=== PATIENT | male | born 1990 | race Caucasian/White ===

== ENCOUNTER 2019-03-09 22:41 | Inpatient (IN) | payer OTHER, MEDICAID, SELFPAY ==
--- NOTE | 2019-03-09 | DI.CT.S_ITS ---
PROCEDURE: CT PEL WO CON INDICATIONS: FEMUR/HIP PAIN, SKATEBOARD INJURY TODAY TECHNIQUE: Noncontrast 3 mm axial sections acquired through the bony pelvis, with coronal and sagittal reformatting. COMPARISON: None. FINDINGS: Image quality: Excellent. Bones: There is a comminuted intertrochanteric fracture of the proximal right femur with fracture line extending obliquely to the proximal third right femoral diaphysis. The right femoral acetabular joint is maintained. Remainder of the visualized osseous structures appear intact. Pelvic ring is intact. No pubic symphysis or sacral iliac diastases. Soft tissues: There is soft tissue swelling of the musculature surrounding the fracture. No evidence for abnormal fluid collection. No substantial joint effusion. Limited evaluation of the pelvic structures appear unremarkable. IMPRESSION: 1. Comminuted intertrochanteric fracture of the proximal right femur with extension of the fracture line to the proximal third femoral diaphysis. 2. The pelvic ring appears intact. Findings are concordant with preliminary radiology report. Dictated by: Tobin Kirk M.D. on 03/10/2019 at 8:47 Approved by: Tobin Kirk M.D. on 03/10/2019 at 8:54
[2019-03-09 22:45] VITALS: BP 142/74; PULSE 71; RESP 18; TEMP 37.1; O2SAT 99; BMI 25.1
--- NOTE | 2019-03-09 22:48 | DI.RAD.S_ITS ---
PROCEDURE: XR FEMUR RT MIN 2V INDICATIONS: trauma, swelling, obvious deformity TECHNIQUE: 2 views of the femur were acquired. COMPARISON: [facility], CR, PELVIS W UNILATERAL HIP LEFT, 04/09/2009, 11:41. FINDINGS: Bones: There is a comminuted intertrochanteric fracture in proximal femur. No suspicious bony lesions. Soft tissues: No suspicious soft tissue calcifications or masses. IMPRESSION: Comminuted intertrochanteric fracture. Dictated by: Azar Morales M.D. on 03/10/2019 at 8:35 Approved by: Azar Morales M.D. on 03/10/2019 at 8:36
--- NOTE | 2019-03-09 23:15 | PC.NURSE ---
Pt refusing IV at this time
--- NOTE | 2019-03-09 23:23 | ED_ITS ---
HPI - Fall General Chief Complaint: Trauma Stated Complaint: states right femure/upper leg pain from fall Time Seen by Provider: 03/09/19 22:48 Source: patient and family Mode of arrival: wheelchair Limitations: no limitations History of Present Illness HPI Narrative: 28-year-old male nonsmoker with frequent marijuana use presents with a chief complaint significant right hip, thigh pain and swelling since a skateboarding accident just prior to his arrival. He states that he attempted to jump that was above his skill level and landed firmly on his right thigh. He denies any head neck or back pain. He denies any numbness, tingling or weakness. He has significant swelling in his right thigh and pain that is worse with motion and improves with rest MD complaint: fall Onset (ago): minute(s) Fall from: standing Fall witnessed: no Place fall occurred: street Loss of consciousness: none Prolonged down time: no Symptoms prior to fall: none Context: tripped/slipped Location of injury - extremities: Right: thigh Severity: severe Quality: aching Related Data Allergies Allergy/AdvReac Type Severity Reaction Status Date / Time No Known Drug Allergies Allergy Verified 03/09/19 23:42 Review of Systems Constitutional Denies chills, Denies fever(s), Denies lethargy and Denies weakness Eyes Denies change in vision, Denies eye discharge, Denies irritation and Denies loss of vision ENT Ears, Nose, Mouth, and Throat: Denies change in voice, Denies neck pain and Denies sore throat Cardiovascular Denies chest pain, Denies irregular heart rhythm, Denies lightheadedness, Denies palpitations, Denies dyspnea, Denies dyspnea on exertion and Denies orthopnea Respiratory Denies cough, Denies dyspnea, Denies dyspnea on exertion and Denies wheezing Gastrointestinal Gastrointestinal: Denies abdominal pain, Denies change in bowel habits, Denies diarrhea, Denies nausea and Denies vomiting Genitourinary Denies hematuria, Denies flank pain, Denies urinary incontinence and Denies urinary urgency Musculoskeletal Reports joint swelling, Reports limited range of motion and Denies neck pain Integumentary/Breasts Denies pruritus, Denies erythema, Denies rash and Denies wounds Neurologic Denies confusion, Denies loss of vision and Denies weakness Psychiatric Denies anxiety, Denies confusion, Denies depression, Denies homicidal ideation and Denies suicidal ideation Endocrine Denies palpitations Hematologic/Lymphatic Denies easy bruising Allergic/Immunologic Denies wheezing Exam Narrative Exam Narrative: GENERAL: 28-year-old male, GCS 15, obviously uncomfortable and favoring his right hip and thigh HEAD: Atraumatic. Normocephalic. No temporal or scalp tenderness. EYES: Pupils equal round and reactive. Extraocular motions intact. No scleral icterus. No injection or drainage. ENT: Nose without bleeding, purulent drainage or septal hematoma. Throat without erythema, tonsillar hypertrophy or exudate. Uvula midline. Airway patent. NECK: Trachea midline. No JVD or lymphadenopathy. Supple, nontender, no meningeal signs. CARDIOVASCULAR: Regular rate and rhythm without murmurs, gallops, or rubs. RESPIRATORY: Clear to auscultation. Breath sounds equal bilaterally. No wheezes, rales, or rhonchi. GASTROINTESTINAL: Abdomen soft, non-tender, nondistended. No hepato- splenomegaly, or palpable masses. No guarding. EXTREMITIES: Significant swelling of the right thigh without shortening or rotation of his lower extremity. Full sensation of the toes with cap refill less than 2 seconds and intact dorsalis pedis. Limited range of motion secondary to pain. Closed, isolated and neurovascularly intact BACK: Nontender without deformity or crepitance. No flank tenderness. NEURO: AOx3. SKIN: No rash or erythema. Initial Vital Signs Initial Vital Signs: Vital Signs Temperature 98.7 F 03/09/19 22:45 Pulse Rate 71 03/09/19 22:45 Respiratory Rate 18 03/09/19 22:45 Blood Pressure 142/74 H 03/09/19 22:45 Pulse Oximetry 99 03/09/19 22:45 [facility] Social History (Updated 03/09/19 @ 23:36 by Billy Chavez DO) marital status: unmarried,single lives independently: Yes caregiver/support person: No housing: house Course Orders Ordered: ED Orders 03/09/19 22:48 XR femur RT min 2V Stat Basic Metabolic Panel Stat Complete Blood Count AUTO DIFF Stat Type and Screen Stat Consultations Consultation #1: Called to on-call orthopedist whom suggests admitting the patient here, does not need to be NPO immediately as surgery is likely going to happen tomorrow afternoon or evening Vital Signs - 8 hr 03/09/19 22:45 03/09/19 23:41 Temperature 98.7 F Pulse Rate 71 64 Respiratory Rate 18 Blood Pressure 142/74 H Blood Pressure [Right Arm] 110/52 L Pulse Oximetry 99 100 MDM - Fall Imaging Data Right Hip Xray: My impression: Comminuted R hip with involvement of neck, greater/lesser trochanter Pelvis CT: Radiologist's impression: Comminuted intertrochanteric fracture of the right hip with extension into the proximal mid femoral diaphysis Discharge Plan Departure Patient Disposition: Admitted As Inpatient Clinical Impression: Closed right femoral fracture Qualifiers: Encounter type: initial encounter Femur location: trochanter, unspecified Qualified Code(s): S72.101A - Unspecified trochanteric fracture of right femur, initial encounter for closed fracture Admit Date/Time: 03/09/19 23:57 Admit Provider: Robert Arrington
[2019-03-09 23:41] VITALS: BP 110/52; PULSE 64; O2SAT 100
[2019-03-10] VITALS (18 sets, daily range): BP systolic 119–146; BP diastolic 56–87; PULSE 59–91; RESP 14–92; TEMP 36.4–37.7; O2SAT 95–100; BMI 25.1
--- NOTE | 2019-03-10 | DI.RAD.S_ITS ---
PROCEDURE: XR HIP W PEL IF DONE RT 4V COMPARISON: None. INDICATIONS: RIGHT HIP FX REPAIR FINDINGS: 6 intraoperative fluoroscopic spot images of the right femur demonstrate multiple views of the left femoral ernie and femoral neck screw traversing an intertrochanteric fracture. Hardware position appears appropriate. No unexpected fractures visible. IMPRESSION: Intraoperative fluoroscopy for left hip fracture repair. Dictated by: Mignon Underwood M.D. on 03/10/2019 at 20:55 Approved by: Mignon Underwood M.D. on 03/10/2019 at 20:56
[2019-03-10 00:37] LABS: Add Manual Diff / Slide Review NO; Basophils Absolute Auto 100 /uL (0-100); Basophils Percent Auto 0.6 % (0-2); Eosinophils Absolute Auto 0 /uL (0-450); Hematocrit 35.5 % (41-53); Hemoglobin 12.5 g/dL (13.5-17.5); Lymphocytes Absolute Auto 1000 /uL (1100-4500); Lymphocytes Percent Auto 5.5 % (25-40); Mean Corpuscular HGB Conc 35.1 % (30-36); Mean Corpuscular Hemoglobin 31.1 PG (26-34); Mean Corpuscular Volume 88.6 fL (80-100); Monocytes Absolute Auto 1100 /uL (0-900); Neutrophils Absolute Auto 16100 /uL (1500-7000); Neutrophils Percent Auto 87.9 % (50-75); Platelet Count 241 X10^3/uL (150-400); Red Blood Cell Count 4.01 X10^6/uL (4.5-5.9); Red Cell Distribution Width 12.7 % (11.6-14.8); White Blood Cell Count 18.4 X10^3/uL (4.5-11.0)
[2019-03-10 00:57] LABS: BUN Creatinine Ratio 16.7 (6-22); Blood Urea Nitrogen 15 mg/dL (9-20); Calcium 8.9 mg/dL (8.4-10.2); Carbon Dioxide 27 mmol/L (22-32); Chloride 99 mmol/L (98-107); Estimated Glomerular Filt Rate > 60.0 mL/min (>60); Glucose 150 mg/dL (70-100); HEMOLYSIS < 15 (0-50); Potassium 3.7 mmol/L (3.4-5.1); Sodium 134 mmol/L (137-145)
[2019-03-10] MEDS: HYDROMORPHONE 0.5 MG INJ IV ×5 (01:55→15:32)
[2019-03-10] MEDS: SODIUM CHLORIDE 0.9% 1,000 ML 75 ML IV ×2 (01:55→14:58)
--- NOTE | 2019-03-10 04:24 | PC.NURSE ---
Admission note: Pt arrived via stretcher accompanied by ED WASHTUB WORKER and student nurse, transferred to AC bed via stretcher, pt is on bedrest for right hip fx. Assessment notable only for a larger right thigh than left with no accompanied bruising, strong pedal pulse and intact sensation. Pt is AxOx4 but has a tendency to ramble on when asked questions, and reports that he currently lives at home with his pervy parents and self reporting to be suffering from situational depression. 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 Assured pt that he can be safely treated for pain but pt assures this RN that he is okay. Pt is a fall risk d/t recent fall and current hip fx.
--- NOTE | 2019-03-10 08:17 | P.HP_ITS ---
History of Present Illness Date Patient Seen: 03/10/19 Time Patient Seen: 08:13 Chief complaint: states right femure/upper leg pain from fall Narrative: 28-year-old gentleman who fell while skateboarding landing on his right leg resulting in a proximal femur fracture with extension into the shaft. Patient denies any other injuries from the fall. Patient was attempting a jump and landed directly on the lateral aspect of his right leg. Was unable to bear weight. Patient denies hitting his head. Patient denies any loss of consciousness. Patient History Social History (Updated 03/09/19 @ 23:36 by Billy Chavez DO) marital status: unmarried,single household members: family lives independently: Yes caregiver/support person: No housing: house Smoking Status: Current every day smoker alcohol intake: current Family & Social History Social History: household members family Prior Living Arrangements House lives independently Yes caregiver/support person No Safety & Behavioral: Feels Safe in Current No Environment Been Physically Hurt or No Threatened By a Person Suicidal Ideation Description None Suicide Plan Description No Plan Tobacco & Substance use: Tobacco type cannabis/marijuana Smoking Status Current every day smoker alcohol intake current alcohol intake frequency 0-2 drinks per day Substance Use Type marijuana Meds Home Medications Medication Instructions Recorded Confirmed Type No Known Home Medications 03/10/19 03/10/19 History Allergies Allergy/AdvReac Type Severity Reaction Status Date / Time No Known Drug Allergies Allergy Verified 03/09/19 23:42 Review of Systems Review of Systems All systems reviewed & are unremarkable except as noted in HPI and below Exam Vital Signs (past 8 hours): - 03/10/19 01:05 03/10/19 01:15 03/10/19 05:00 Temperature 98.2 F 98.1 F Pulse Rate 70 64 80 Respiratory Rate 18 16 16 Blood Pressure 129/68 123/61 136/68 Pulse Oximetry 98 99 99 Oxygen Delivery Method Room Air Oxygen Flow Rate 0 Narrative Exam Narrative: On physical exam, patient is alert and oriented x3. Resting comfortably in no apparent distress. No injuries to the upper extremities. Patient has full range of motion of his bilateral upper extremities without any pain or instability. Compartments are soft. Nontender to palpation. Normal range of motion of the cervical spine without any pain or instability. Left lower extremity also free of any abnormalities. Nontender to palpation throughout. No pain with range of motion of the hip knee or ankle of the left leg. Patient has swelling to the right thigh. The compartments are soft. Patient has positive dorsiflexion plantar flexion of his right toes and ankle. Palpable pedal pulses. Nontender to palpation throughout the foot ankle and lower leg. No pain or swelling to the right knee. Skin is intact with no sign of any open wounds or abrasions. Const General: cooperative and healthy appearing Nutritional Appearance: well nourished Orientation: alert, awake and oriented x3 Objective Labs Result Diagrams: 03/10/19 00:30 03/10/19 00:30 Labs: Laboratory Results - last 24 hr 03/10/19 03/10/19 03/10/19 00:30 00:30 00:30 WBC 18.4 H RBC 4.01 L Hgb 12.5 L Hct 35.5 L MCV 88.6 MCH 31.1 MCHC 35.1 RDW 12.7 Plt Count 241 Neut % (Auto) 87.9 H Lymph % (Auto) 5.5 L [place] % (Auto) 6.0 Eos % (Auto) 0.0 L Baso % (Auto) 0.6 Neut # (Auto) 28232 H Lymph # (Auto) 1000 L [place] # (Auto) 1100 H Eos # (Auto) 0 Baso # (Auto) 100 Sodium 134 L Potassium 3.7 Chloride 99 Carbon Dioxide 27 BUN 15 Creatinine 0.90 Estimated GFR > 60.0 BUN/Creatinine Ratio 16.7 Glucose 150 H Calcium 8.9 Blood Type A Positive Antibody Screen Negative Assessment & Plan Assessment & Plan narrative: 28-year-old gentleman with a proximal femur fractur e with spiral extension down into the shaft. Due to his injury this will require surgical fixation. I went over the surgical plan with the patient today. Plan on doing a intramedullary fixation of his femur. Went over the risks and limitations associated with the procedure. All of his questions and concerns were answered to his full satisfaction. Time Spent With Patient Time with patient: 15-24 minutes Quality VTE Deep Vein Thrombosis/Pulmonary Embolism Present on Admission: No
--- NOTE | 2019-03-10 10:19 | PC.NURSE ---
PATIENT WAS ABLE TO VOID W/ URINAL THIS AM. PREFERS URINAL OVER THE IDEA OF A RODRIGUES. RIGHT HIP SIGNIFICANTLY SWOLLEN AND FIRM. CMS INTACT WITH MILD SENSATION OF NUMBNESS, THOUGH NOT TO TOES, ABLE TO MOVE ANKLE AND FOOT AND TOES. FOOT COOL W/ PALPABLE PEDAL PULSES. IVP PAIN MEDICATION PRN. BEDREST. NPO SINCE 0900 PER ORDERS.
--- NOTE | 2019-03-10 10:26 | DIET.PN ---
28y M decreased appetite Height: 180.3cm Wt: 81.6kg BMI: 25.1 Assessment: Pt reports decreased appetite r/t situational depression following ending of 5 year relationship. Pt is active and eats balanced diet including scrambled eggs c veg, crock pot meals, apples, bananas, spinach, water Now eats oatmeal for breakfast, apples, bananas, beef jerky and water. Says his appetite will come back and will resume healthy diet as his heart heals and time moves on. Pt declined talking about prior weight, reported he's fine, just a little depressed. [facility] once allowed to eat, educated on protein and calcium for bone and tissue healing. Monitoring/Evaluation: Further consult c RD not indicated at this time.
--- NOTE | 2019-03-10 11:37 | PC.NURSE ---
Addendum entered by Micaela Yun R.N. 03/10/19 14:37: Left msg with nurse at the [facility] for Dr Arrington. Patient's father, Robert Tamez, who is a physical therapist in [facility], requests to speak with Dr. Arrington prior to surgery. Phone numbers provided for aDshawn's office [phone] and his cell phone [phone] Addendum entered by Micaela Yun R.N. 03/10/19 11:42: Family requests that we chart any unusual behaviours. Original Note: Patient's mother Morena came in to see him. He didn't want her in the room. He was unable to clearly state why. Morena asked this nurse when surgery was planned. This nurse asked patient if it is okay to give her information about his care. He stated, you can tell her whatever she wants, as long as she doesn't come in here. Morena states patient has undiagnosed mental health issues. She suspects bipolar. States he self medicates w/ marijuana which causes delusions and paranoia. States he is currently homeless and living in his truck. She has many concerns. ANDI Alcala notified of same. She will speak with Morena.
--- NOTE | 2019-03-10 15:43 | PC.NURSE ---
Addendum entered by Alem Acevedo R.N. 03/10/19 22:29: Pt's parents aware pt back in room 205 and stop in to see patient. Pt sleeping and does not acknowledge their presence. Parents leave for the evening. Pt resting quietly in bed with eyes closed; no signs of distress or discomfort. Addendum entered by Alem Acevedo R.N. 03/10/19 21:54: Pt to room 205 from PACU awake and alert. R.T. in to see patient. Continuous pulse oximeter in place room air 98%. Pt admits to right LE pain 7/10 with movement. Has ice to right hip. Surgical dressing is dry and intact. Palpable pedal pulses BL. Able to wiggle toes to feet BL. BL calf scd's in place. Bowel tones are present and pt denies nausea. Given applesauce with po meds. IV fluids initiated. Cooperative with care. Call light available within pt's reach. Addendum entered by Alem Acevedo R.N. 03/10/19 17:56: Pt's mother arrives to check on pt. Pt remains resting quietly in bed with eyes closed. Pt's mother reports to this singer songwriter pt's father has spoken to surgeon. Mother states feels comfortable pursuing surgery at this facility. O.R. RN's arrive to take pt to surgery. Pt was informed. Pt requests staff cut off underwear versus pt required to move RLE to remove this undergarment. Pt states does not want to keep so these were cut and disposed of with pt's consent and knowledge. Mother follows O.R. crew to waiting area so can meet with Dr. Arrington at the end of the case. O.R. crew was informed of pt's mental health status as per earlier conversation with md do resident urgent care. Pt's mother was present for this conversation and validates information shared. Original Note: Pt calmly, quietly resting in bed. Requests pain meds @ shift change for right hip pain 7-8/10. Administered dilaudid as ordered and per emar. Pt requests sips water and this singer songwriter provided rationale why nothing to eat or drink prior to surgery. Offered oral swab, which pt refuses. Informed pt can have foods and fluids following surgery. Currently denies nausea. Admits to full sensation to BL LE's. Edema to right thigh. Ice to region. Instructed pt to remove ice if skin becomes cold/uncomfortable. Palpable pedal pulses x 2. Door open per pt's request.
--- NOTE | 2019-03-10 16:17 | CM.SWNOTE ---
Addendum entered by ANDI Lees 03/11/19 10:16: Documents received Wednesday03.10.19 from pt's mom Morena: *Typed letter of concern dated 02.19.19 from pt's older sister Rory Braun RN at [facility] in [place], reviewing reasons for concern for pt's safety and the safety of those around him, RADHA requested, cell # [phone]. *Typed letter of concern dated 02.24.19 from friend Bradley Kennedy, cell # [phone]. *Typed letter of concern from ex-girlfriend Viktoriya Lopez dated 02.21.19 reviewing concerns about pt's behavior in the past and indicators of active psychosis and s/sx of significant depression, anxiety, and suspected Bipolar disorder. Also included; Typed transcript from a former conversation w/pt illustrating non linear thought and speech, and tangential thought process. *Also received a VM and a signed and dated Affidavit from pt's current/former counselor (pt non-compliant in f/u) Marie Wolf MA [facility] dated 03.10.19 reviewing her suspicion of pt's active psychosis and a suspected diagnosis of schizo affective disorder, Bipolar type . All conclude in their documents that pt requires inpt psychiatric care and medication management in order for pt to have a functional, stable and healthy existence. JW Original Note: Social Work Note: This PHOTOGRAPHY INSTRUCTOR was called by MARIANA Hinojosa to meet w/pt's mom Morena to review her concerns about pt's lack of stability and undiagnosed MH issues. Pt has given team permission to speak w/his mother but has told RN as long as she stays out of my room. Had lengthy conversation w/Morena. More detailed note to follow. Summary of her concerns shared are included below: -H/o depression and anxiety now w/ at least one month h/o severe behavioral disturbance to include paranoia ie that his family is out to get him, people are watching and listening to him through the TV and other electronic devices, accusing others of committing sexual acts, and distrust/verbal abuse towards his parents -Paranoia and delusions making it so pt can not function in daily life to include poor judgment and lack of safety awareness ie choosing to live in his truck outside his parent's home,not being able to keep employment, smoking large amounts of marijuana daily, not attending counseling sessions or being very late, often peeing outdoors to avoid using indoor BR w/fear of seeing someone, making verbal threats to parents about punching them in the face Alerted RN Micaela and oncoming RN Alem re: report above. This PHOTOGRAPHY INSTRUCTOR unable to interview/assess pt today. He is scheduled for hip surgery this evening. Will resume further documentation and assessment of next steps in safe DC planning Wednesday, likely POD#1 from hip surgery after skate boarding accident and subsequent hip fx. ANDI Lees
[2019-03-10] MEDS: LACTATED RINGERS 1,000 ML 42 ML IV (18:00)
[2019-03-10] MEDS: CEFAZOLIN 2 GM/100 ML FROZ.PIGGY IV (18:15)
[2019-03-10] MEDS: BUPIVACAINE 0.5% W/ EPI (PF) VIAL 30 ML INJ (18:35)
--- NOTE | 2019-03-10 18:56 | SUR.OPER ---
Head on pillow. Supine on fracture table with operative leg secured in traction. Other leg secured in TRACTION, UNLOCKED. RIGHT Arm across chest, secured with sheet. LEFT ARM SECURED ON PADDED ARMBOARD.
[2019-03-10] MEDS: HYDROMORPHONE 2 MG INJ 0.5 MG IV ×2 (20:49→21:05)
--- NOTE | 2019-03-10 21:10 | P.OP_ITS ---
Operative Date/Time/Diagnoses Date of procedure: 03/10/19 Time of procedure: 18:30 Pre-op diagnosis: Right intertrochanteric femur fracture with extension into the shaft. Post-op diagnosis: same Procedure & Clinicians Procedure: Intramedullary fixation of right femur fracture Compartment release of a right thigh Same procedure as scheduled: No Indications: Right proximal femur fracture with extension into the shaft. Surgeon: Robert Arrington Click Yes if Unassisted: Yes Anesthesia Type: General Operative Notes Findings: Intratrochanteric femur fracture with a spiral extension into the shaft. No sign of extension into the neck or head. Concern that patient might develop compartment syndrome over time so a compartment release was performed. Closure Type: primary Specimen(s): none sent Prosthetic devices, grafts, tissues, transplants, or devices: [place] femoral nail Applied: implant(s) Estimated Blood Loss (mL): 100 Blood products transfused: none Procedure in detail: On date of service, patient was met in the holding area where his operative site was signed and witnessed by the OR staff. The surgery was once again discussed with the patient as well as family. All of the patient's questions and concerns were answered to his full satisfaction. Patient was taken to the operating theater. 2 g of Ancef were given preoperatively. Time-out was performed verifying patient's name procedure and operative site. General anesthetic was administered and then patient was transferred to the fracture table. Great care was taken to ensure that all bony prominences were appropriately padded. Peroneal post was placed. Both legs was placed into traction boots. The left leg was lowered while the right leg stayed in a neutral plane. Gentle traction was applied as well as internal rotation and adduction. C-arm was used to verify overall reduction of the intertrochanteric fracture. Once we were satisfied with overall reduction of the proximal aspect C-arm was used to verify reduction at the femur shaft as well. The right leg was then prepped and draped in the normal sterile fashion. Using a 10 blade, 3 cm incision was made proximal to the greater trochanter. Deep knife was used to incise the fascial tissue and a hemostat was used to bluntly dissect down to the tip of the trochanter. Guidewire was placed and under C-arm visualization a guidewire was placed into a greater trochanteric entry point down into the femoral shaft. Placement of the guidewire was verified with AP and lateral views. Next, entry Reamer was used to ream a hole in the tip of the greater trochanter. Ball-tip guide was placed all the way down to the end of the femur. Its position was verified with AP and lateral views. Once we are satisfied with the position of the ball-tip guide in the overall alignment of the femur it was reamed sequentially. Depth gauge was used to measure the length of the femur which was a 40 cm length and by the reaming a 13 cm width. Nail was placed down the length of the femur. C-arm was used to verify nail positioning and overall reduction. Once we had the appropriate depth we turned our attention to the proximal screw to address the intertrochanteric portion of the fracture. Using the targeting guide, an incision was made centered over the targeting guide. It was at this point or with felt that the lateral compartment was quite tense. It was decided at this point to fully release the ITB band to decompress the anterior compartment of the leg. Through that same incision we also decompressed posteriorly as well. Patient was quite soft medially and did not require a decompression. Once we fully released the ITB band there was a noticeable difference in the thigh. It was much softer. Muscle looked healthy and normal with no sign of any ischemic changes. Next using the targeting guide a guidewire was placed at a 130 degree angle into the femoral head. The position of this guidewire was verified with AP and late ral views. This was measured and 100 mm by 10 mm screw was placed across the intertrochanteric fracture into the head. A locking screw was then placed making this a fixed angle device. We then turned our attention to the distal locking screws. Using C-arm to help visualize the distal screw holes 2 screws were placed to lock the nail distally. Patient's thigh was quite soft on the distal aspect from the previous IT band release. X-rays were used to verify screw positioning and placement. Final x- rays were obtained visualizing the entire implant. The wounds were copiously irrigated and the skin was closed with nylon. Able to close the multiple incisions without much tension. The leg was then cleaned dried and dressed. Patient was transferred to his stretcher and taken to the PACU in stable condition. Patient's compartments were quite soft after being transferred to his bed. He had strong palpable pedal pulses. Complications: none Condition: stable Disposition: PACU Plan for aftercare: Patient will be toe-touch weight-bearing to the right lower extremity.
--- NOTE | 2019-03-10 21:17 | SUR.PHASEI ---
Report called to Radha
--- NOTE | 2019-03-10 21:40 | SUR.PHASEI ---
Pt tranferred to the floor. VS stable. Drsg cdi.. RLE elevated. IV saline locked. Report to Radha.
[2019-03-10] MEDS: LACTATED RINGERS 1,000 ML 125 ML IV (21:44)
[2019-03-10] MEDS: OXYCODONE IR 5 MG TABLET PO (21:48)
[2019-03-10] MEDS: ACETAMINOPHEN 325 MG TABLET 975 MG PO (21:48)
[2019-03-11] VITALS (10 sets, daily range): BP systolic 133–146; BP diastolic 64–84; PULSE 76–111; RESP 16–20; TEMP 36.9–37.9; O2SAT 93–99
--- NOTE | 2019-03-11 00:40 | PC.NURSE ---
Addendum entered by Gloria Moreira R.N. 03/11/19 01:34: Correction *xeroform dressing, cross hatched to prevent occlusion Original Note: Shift note: Received pt from evening shift. Assessment notable for swollen, tender right thigh with large bulky dressing, moderately saturated with bright red blood. With another RN and HEAD BUYER TOBACCO, removed dressing and replaced d/t underlying dressing being saturated with blood. During dressing change, middle incision beaded with blood slowly. Encouraged pt to avoid twisting motions with leg and hip. New dressing is iodaform dressing over sutures, abd pad over distal two incisions, coversite over proximal incision, wrapped with kerlex to keep abd pads in place and wrapped with acewrap. Will continue to monitor for increased output of bright red blood and notify surgeon for concerns. Pt tolerated dressing change well, laughs when is experiencing pain versus crying out or moaning, asked questions. Ice to dressing for comfort and swelling.
[2019-03-11 06:05] LABS: Hematocrit 27.4 % (41-53); Hemoglobin 9.7 g/dL (13.5-17.5); Mean Corpuscular HGB Conc 35.5 % (30-36); Mean Corpuscular Hemoglobin 31.5 PG (26-34); Mean Corpuscular Volume 88.6 fL (80-100); Platelet Count 183 X10^3/uL (150-400); Red Blood Cell Count 3.09 X10^6/uL (4.5-5.9); Red Cell Distribution Width 12.7 % (11.6-14.8); White Blood Cell Count 13.5 X10^3/uL (4.5-11.0)
[2019-03-11] MEDS: OXYCODONE IR 5 MG TABLET PO ×6 (06:27→20:50)
[2019-03-11] MEDS: ENOXAPARIN 40 MG/0.4 ML SYRINGE SUBCUT (09:06)
[2019-03-11] MEDS: ACETAMINOPHEN 325 MG TABLET 975 MG PO (09:06)
[2019-03-11] MEDS: DOCUSATE 100 MG CAPSULE PO ×2 (09:06→20:50)
[2019-03-11] MEDS: SODIUM CHLORIDE 0.9% FLUSH 10 ML IV (09:07)
--- NOTE | 2019-03-11 09:39 | PM.PNPO.1 ---
Subjective Date Patient Seen: 03/11/19 Time Patient Seen: 09:40 Interval history: Patient having pain but currently well controlled. Denies fever chills. No nausea vomiting. No shortness of breath or chest pain. Exam Vital Signs (past 8 hours): - 03/11/19 05:00 03/11/19 08:59 03/11/19 09:06 Temperature 100.2 F H 99.9 F H 99.9 F H Pulse Rate 88 76 Respiratory Rate 16 18 Blood Pressure 134/69 139/84 Pulse Oximetry 99 03/11/19 09:31 03/11/19 09:32 Temperature 98.4 F 98.4 F Pulse Rate Respiratory Rate Blood Pressure Pulse Oximetry Oxygen Delivery Method Room Air Oxygen Flow Rate 0 Narrative Exam Narrative: 28-year-old male resting comfortably in bed in no apparent distress. Dressing is little moist otherwise intact. Motor functions intact distal right lower extremity. Sensation grossly intact to light touch. Right leg is warm and dry. Objective Labs Result Diagrams: 03/11/19 05:32 03/10/19 00:30 Labs: Laboratory Results - last 24 hr 03/11/19 05:32 WBC 13.5 H RBC 3.09 L Hgb 9.7 L Hct 27.4 L MCV 88.6 MCH 31.5 MCHC 35.5 RDW 12.7 Plt Count 183 Assessment & Plan Post-op Postoperative Procedures Operation Date: 03/10/19 17:30 Actual Procedures Side Surgeon p Intramedullary Nailing Femur Right Robert Arrington MD Toe touch weight-bearing right lower extremity. Mobilize with physical therapy. Repeat CBC tomorrow a.m.. Likely discharge home tomorrow if he remains stable. Quality VTE Deep Vein Thrombosis/Pulmonary Embolism Present on Admission: No
--- NOTE | 2019-03-11 12:43 | CM.IDA ---
Initial DCP Assessment Note: Pt is a 28 yo male, resident of [facility]. Pt POD#1 from hip repair w/ Dr Arrington. PCP: Dr Sullivan Payer: [place] [employer]. Met w/pt this morning right after session w/PT Mellisa. Mellisa explained to pt that he may require SNF stay d/t stairs at his home and pt is agreeable. Pt aware it is early in the recovery process and PT will continue to assess while pt is admitted. According to conversation w/pt this morning: Pt states he is living in his family's home; he states he lives w/his parents, his 10 yo sister Harmony, who has down syndrome, his 15 yo sister Xiomara, 17 yo sister Cari and 19 yo sister Xiomara. He has 8 siblings total. Pt is hopeful he can move out of his parents home quickly. Pt states he is not currently employed but hopes to work again after his leg is healed. Pt looks and acts his age, he expresses himself well and remains calm and appropriate throughout the visit w/no irregularities in speech or train of thought. Pt tends to focus on what he describes as the wrong doings of his parents to include: being in a cult ([employer]!), having 9 children and not being loving or affectionate parents, hoarding, being absent often, being threatening and verbally abusive...many other accusatory statements made throughout the conversation. Pt states he has seen a counselor off/on only for relationship issues w/ex-gf and to talk to someone once in awhile. Reviewed DCP options w/pt and explained no SNF could reach [place] until Wednesday if pt was requiring this level of care and pt understood. Today, pt feels SNF might be the only option for him. If he regains more of his functioning, it's possible one or more of his siblings might be able to assist him at home. Pt regrets getting on the skateboard and explains he won't make that mistake again. This CONTINUOUS DRIER OPERATOR asked pt if there was anyone he would not want in his room and he said anyone can come in. Also asked if this CONTINUOUS DRIER OPERATOR has permission to speak w/his Mom or Dad if questions, concerns arise and pt agreed to this. Following closely for coordination of the safest DC plan available to pt. This CONTINUOUS DRIER OPERATOR will visit pt again tomorrow and CONTINUOUS DRIER OPERATOR team will likely need to discuss family/counselor concerns w/Orthopedic team. Pt would benefit from a Psychiatric consult Wednesday (when Dr Aguilar returns), if available, for further input/insight on pt's current presentation and background information provided by family and counselor Marie Wolf. ANDI Lees Discharge Planning/Care Management CM Discharge Assessment Start: 03/11/19 12:41 Freq: Status: Active Protocol: Document 03/11/19 12:41 SUSY (Rec: 03/11/19 12:43 SUSY [id number]) Discharge Planning Assessment Assigned Housekeeping Attendant ANDI Das DPOA/Assigned Designee Name None Advance Directives? No History Provided By Patient Prior Living Arrangements House Household Members family Independent with ADL's Yes Is patient alert and oriented? Yes Whiteboard Updated in Patient Room with Yes name and ext. # of Housekeeping Attendant Review Status In Process
--- NOTE | 2019-03-11 12:58 | PT.IIE ---
Surgery Performed Operation Date: 03/10/19 17:30 Actual Procedures p Intramedullary Nailing Femur(Right) - Robert Arrington MD Physical Therapy Inpatient Evaluation/Re-Eval M1 PT/OT-IP Prior Functional Status Start: 03/11/19 12:44 Freq: NEEDED Status: Active Protocol: Document 03/11/19 10:13 AB (Rec: 03/11/19 12:58 AB [id number]) Medical Review Prior Functional Status Medical History Reviewed Yes Communication able to make needs known Mobility and Gait stated that he is independent with all mobilities and ambulation without AD Social History Household Members family Living Arrangements House Number of Floors (Floors) Two Floors Number of Stairs To Enter/Railing? 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 PT-IP Current Condition Start: 03/11/19 12:44 Freq: NEEDED Status: Active Protocol: Document 03/11/19 10:13 AB (Rec: 03/11/19 12:58 AB [id number]) Physical Therapy Current Condition Current Condition Evaluation Date 03/11/19 Treatment Diagnosis s/p R trochanteric/femoral fx s/p intramedullary fixation; diff in walking Onset Date 03/09/19 Weight Bearing Status Weight Bearing Status Touch Down Weight Bearing Allowed Weight Bearing Amount (enter % RLE TTWB or #) (%) M3 PT-IP Subjective Start: 03/11/19 12:44 Freq: NEEDED Status: Active Protocol: Document 03/11/19 10:13 AB (Rec: 03/11/19 12:58 AB [id number]) Subjective Physical Therapy Visit Type Type Initial Evaluation Visit Start Time 10:13 Visit Stop Time 11:00 Total Visit Minutes 47 Number of DIETITIAN CONSULTANT Visits 0 Physical Therapy Visit Comments Patient Comments pt agreeable to do PT Therapy Pain Assessment Pain When Pain Assessed At Rest Pain Present Pain Present Pain Reported Location Right Thigh Intensity 7 Scale Used Numeric (1 - 10) Pain Management Techniques Apply Cold Re-positioning Timing of Activity with Medications M4 PT-IP Mobility and Gait Start: 03/11/19 12:44 Freq: NEEDED Status: Active Protocol: Document 03/11/19 10:13 AB (Rec: 03/11/19 12:58 AB [id number]) PT-Bed Mobility Assessment Supine to Sit Supine to Sit Maximum Assistance 1 Person Assistance Scooting Scooting to Edge of Bed Maximum Assistance PT-Transfer Assessment Sit to and From Stand Sit to and from Stand Maximum Assistance 1 Person Assistance Use of Upper Extremities Equipment Transfer Assistive Device Gait Belt Front Wheeled Walker Orthotic/Prosthetic Devices or Brace: No Transfers Transfer Destination Chair Transfer Technique Stand Step Pivot Transfer Ability Level of Assist Moderate Assistance Maximum Assistance 1 Person Assistance Use of Upper Extremities Comments Mobility Comments pt requires max A to maintain TTWB on RLE. unable to keep RLE off the floor during sit to stand requiring assist. able to keep heel off the floor during standing and complete stand step pivot transfer requiring mod to max A and max cues using FWW. PT-Balance Assessment Sitting Balance and Reactions Static Sitting Balance Ability Good Dynamic Sitting Balance Ability Good Standing Balance and Reactions Static Standing Balance Ability Fair Dynamic Standing Balance Ability Poor Device Used FWW M5 PT-IP Objective Assessments Start: 03/11/19 12:44 Freq: NEEDED Status: Active Protocol: Document 03/11/19 10:13 AB (Rec: 03/11/19 12:58 AB [id number]) Orientation Orientation/Cognition Level of Alertness Alert Safety Awareness Understands Safety Issues Memory Description No Deficits Noted Gross Range of Motion Lower Extremity ROM Assessment Right Impaired Impairments RLE tightness and pain inhibiting movement Strength Lower Extremity Strength Assessment Right Impaired Hip 2+/5 Knee 3-/5 Coordination Assessment Gross Coordination Gross Coordination WNL Sensation Assessment Sensation Gross Sensation WNL Muscle Tone Muscle Tone WNL Yes M6 PT-IP Treatment Start: 03/11/19 12:44 Freq: NEEDED Status: Active Protocol: Document 03/11/19 10:13 AB (Rec: 03/11/19 12:58 AB [id number]) Physical Therapy Treatment Exercises Exercises Quad Sets Heel Slides Education Education Provided Precautions Weight Bearing Status Post-Op Packet Safety M7 PT-IP Assessment and Plan Start: 03/11/19 12:44 Freq: NEEDED Status: Active Protocol: Document 03/11/19 10:13 AB (Rec: 03/11/19 12:58 AB [id number]) PT Summary Assessment and Plan Potential Rehabilitation Potential Fair Status of Condition at Evaluation Evolving Summary Impairments Pain ROM Strength Balance Coordination Bed Mobility Transfers Gait Activity Tolerance Assessment Summary pt requiring mod to max A with mobility and unable to ambulate at this time. pt c/o increase pain and has a TTWB restriction on RLE affecting mobility. pt will require SNF rehab at this time. will continue to assess. Goals Bed Mobility Goal Standby Assistance Transfer Goal Contact Guard Assistance Crutches Front Wheeled Walker Gait Goal Contact Guard Assistance Crutches Front Wheel Walker Gait Distance 50 Other Goals up/down 3 steps using crutches SBA Days to Meet Goals 10 Frequency of Treatment Frequency Of Treatment Twice a Day Treatment Plan Physical Therapy Treatment Plan Bed Mobility Training Transfer Training Gait Training Therapeutic Exercise Balance Retraining Post Op Education Discharge Planning Hot or Cold Pack Neuromuscular Re-ed Coordination Retraining Manual Therapy Other Recommendations and Next Treatment ambulation if appropriate Focus Recommendations To Nursing Amount of Assist Needed 2 Person Assist Discharge Recommendations PT Discharge Recommendations SNF Rehab
--- NOTE | 2019-03-11 13:16 | PC.NURSE ---
Day shift: Pt has been calm and cooperative with care. Has been appropriate as well. Dressing changed today at 1300. Placed 4 each new Coversites. Pt tolerated well. All 4 of the op-sites are well approximated. The second site from the top had a small amount of leakage during the dressings change. All Coversites are dated and timed. Call light in reach. Pt stated that it is more comfortable when he sits in the chair. The right thigh is swollen and firm to the touch. Placed a second ice pack.
--- NOTE | 2019-03-11 14:23 | PT.IPTN ---
Surgery Performed Operation Date: 03/10/19 17:30 Actual Procedures p Intramedullary Nailing Femur(Right) - Robert Arrington MD Physical Therapy Treatment Note M2 PT-IP Current Condition Start: 03/11/19 12:44 Freq: NEEDED Status: Active Protocol: Document 03/11/19 10:13 AB (Rec: 03/11/19 12:58 AB [id number]) Physical Therapy Current Condition Current Condition Evaluation Date 03/11/19 Treatment Diagnosis s/p R trochanteric/femoral fx s/p intramedullary fixation; diff in walking Onset Date 03/09/19 Weight Bearing Status Weight Bearing Status Touch Down Weight Bearing Allowed Weight Bearing Amount (enter % RLE TTWB or #) (%) M3 PT-IP Subjective Start: 03/11/19 12:44 Freq: NEEDED Status: Active Protocol: Document 03/11/19 14:23 AB (Rec: 03/11/19 16:37 AB [id number]) Subjective Physical Therapy Visit Type Type Treatment Note Visit Start Time 14:23 Visit Stop Time 15:01 Total Visit Minutes 38 Number of MINE PRODUCTION ENGINEER Visits 0 Physical Therapy Visit Comments Patient Comments pt agreeable to do PT Therapy Pain Assessment Pain When Pain Assessed At Rest Pain Present Pain Present Pain Reported Location Right Thigh Intensity 2 Scale Used Numeric (1 - 10) Pain Management Techniques Apply Cold Re-positioning Timing of Activity with Medications M4 PT-IP Mobility and Gait Start: 03/11/19 12:44 Freq: NEEDED Status: Active Protocol: Document 03/11/19 14:23 AB (Rec: 03/11/19 16:37 AB [id number]) PT-Transfer Assessment Sit to and From Stand Sit to and from Stand Maximum Assistance 1 Person Assistance Use of Upper Extremities Equipment Transfer Assistive Device Gait Belt Front Wheeled Walker Orthotic/Prosthetic Devices or Brace: No Comments Mobility Comments pt sitting on chair and agreed to do PT. pt required mod to max A for RLE support during sit to stand. pt has decrease strength on RLE and has decrease motor control. positioned weighing scale on RLE during standing and pt attempted to take steps. completed 2 steps and pt was able to maintain weight bearing restriction on RLE. pt c/o dizziness and has to sit back down. assisted RLE to move forward and elevated during descent requiring max A and cues. BP checked 143/70. pt agreed to stand again after resting. Gait Assessment Gait Gait Assistance Required: Maximum Assistance Distance (Feet) 2 Able to Maintain Weight Bearing Status Yes During Gait Assistive Devices Assistive Device Gait Belt Front Wheeled Walker Orthotic/Prosthetic Devices or Brace: No Gait Deviations General Gait Pattern Decreased Stride Length Decreased Feet Clearance Factors Limiting Gait Function Factors Limiting Gait Function Decreased Activity Tolerance Decreased Strength Limited Range of Motion Pain Poor Balance Comments Gait Comments educated pt on weight shifting and how to be able to advance RLE forward. continues to require max A with RLE propulsion after education but able to assist PT better. pt completed ~ 3 steps forward using FWW mod to max A and max cues. pt requested to stay up on the chair after PT session. postioned pt on the chair. call light and table placed within reach. M5 PT-IP Objective Assessments Start: 03/11/19 12:44 Freq: NEEDED Status: Active Protocol: Document 03/11/19 10:13 AB (Rec: 03/11/19 12:58 AB [id number]) Orientation Orientation/Cognition Level of Alertness Alert Safety Awareness Understands Safety Issues Memory Description No Deficits Noted Gross Range of Motion Lower Extremity ROM Assessment Right Impaired Impairments RLE tightness and pain inhibiting movement Strength Lower Extremity Strength Assessment Right Impaired Hip 2+/5 Knee 3-/5 Coordination Assessment Gross Coordination Gross Coordination WNL Sensation Assessment Sensation Gross Sensation WNL Muscle Tone Muscle Tone WNL Yes M6 PT-IP Treatment Start: 03/11/19 12:44 Freq: NEEDED Status: Active Protocol: Document 03/11/19 14:23 AB (Rec: 03/11/19 16:37 AB [id number]) Physical Therapy Treatment Education Education Provided Precautions Weight Bearing Status Safety M7 PT-IP Assessment and Plan Start: 03/11/19 12:44 Freq: NEEDED Status: Active Protocol: Document 03/11/19 14:23 AB (Rec: 03/11/19 16:37 AB [id number]) PT Summary Assessment and Plan Potential Rehabilitation Potential Good Summary Impairments Pain ROM Strength Balance Coordination Tone Bed Mobility Transfers Gait Activity Tolerance Progress Towards Goals Slow Progress due to Pain Slow Progress due to Activity Tolerance Assessment Summary pt continues to require mod to max A with mobility and has decrease activity tolerance. pt presents LE weakness with difficulty moving LE. pt will require SNF rehab to improve strength and mobility. Goals Bed Mobility Goal Standby Assistance Transfer Goal Contact Guard Assistance Crutches Front Wheeled Walker Gait Goal Contact Guard Assistance Crutches Front Wheel Walker Gait Distance 50 Other Goals up/down 3 steps using crutches SBA Days to Meet Goals 10 Frequency of Treatment Frequency Of Treatment Twice a Day Treatment Plan Physical Therapy Treatment Plan Bed Mobility Training Transfer Training Gait Training Therapeutic Exercise Balance Retraining Post Op Education Discharge Planning Hot or Cold Pack Neuromuscular Re-ed Coordination Retraining Manual Therapy Other Recommendations and Next Treatment ambulation if appropriate Focus Recommendations To Nursing Amount of Assist Needed 2 Person Assist Discharge Recommendations PT Discharge Recommendations SNF Rehab
--- NOTE | 2019-03-11 15:12 | OT.IP.EVAL ---
Surgery Performed Operation Date: 03/10/19 17:30 Actual Procedures p Intramedullary Nailing Femur(Right) - Robert Arrington MD Occupational Therapy Inpatient Evaluation/Re-Eval M1 PT/OT-IP Prior Functional Status Start: 03/11/19 12:44 Freq: NEEDED Status: Active Protocol: Document 03/11/19 14:34 CGR (Rec: 03/11/19 15:11 CGR [email or web address]) Medical Review Prior Functional Status Medical History Reviewed Yes Communication able to make needs known Mobility and Gait stated that he is independent with all mobilities and ambulation without AD Activities of Daily Living and IADL's Pt was ind in all ADLs and functional mobility prior to admit. Social History Household Members family Living Arrangements House Number of Floors (Floors) Two Floors Number of Stairs To Enter/Railing? Pt has 3 steps to enter with no rail. Half bath on the first floor. Home Environment Standard Height Toilet Tub/Shower Home Equipment Front Wheel Walker Crutches Employment Status Unemployed Additional Social History Comment Pt states that he recently had a very traumatic break up with a girlfriend of 5 years. 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 M2 OT-IP Current Condition Start: 03/11/19 14:34 Freq: Status: Active Protocol: Document 03/11/19 14:34 CGR (Rec: 03/11/19 15:11 CGR [email or web address]) Occupational Therapy Current Condition Current Condition Evaluation Date 03/11/19 Treatment Diagnosis R femur fracture Diagnosis Onset Date 03/10/19 Weight Bearing Status Allowed Weight Bearing Amount (enter % Toe touch weight bearing or #) (%) M3 OT- IP Subjective and Pain Start: 03/11/19 14:34 Freq: Status: Active Protocol: Document 03/11/19 14:34 CGR (Rec: 03/11/19 15:11 CGR [email or web address]) OT- Subjective Occupational Therapy Visit Type Type Initial Evaluation Visit Start Time 13:55 Visit Stop Time 14:25 Total Visit Minutes 30 Occupational Therapy Visit Comments Patient Comments It is really painful when I start to move. OT Pain Assessment Pain When Pain Assessed At Rest Pain Present Pain Present Pain Reported Location Right Thigh Intensity 1 Scale Used Numeric (1 - 10) M4 OT- IP ADL's Start: 03/11/19 14:34 Freq: Status: Active Protocol: Document 03/11/19 14:34 CGR (Rec: 03/11/19 15:11 CGR [email or web address]) OT ADL-Grooming General Evaluation Grooming Ability Standby Assistance Areas Needing Assistance Retrieving/Set-up of Grooming Items Face Washing Comments OT Grooming Comments Seated in chair. OT ADL-Oral Care General Eval Oral Care Ability Standby Assistance Areas of Assistance Brushing Teeth Retrieving/Set-Up of Items Comments Oral Care Comments seated in chair OT ADL-Dressing General Eval Lower Body Dressing Ability Total Assistance Areas Needing Assistance Socks OT ADL-Toileting Comments OT Toileting Comments Pt declined need OT ADL-Bathing Comments OT Bathing Comments Not performed on this date. M5 OT- IP IADL's Start: 03/11/19 14:34 Freq: Status: Active Protocol: Document 03/11/19 14:34 CGR (Rec: 03/11/19 15:11 CGR [email or web address]) OT-Instrumental Activities of Daily Living Deficits IADL Deficits Identified No Deficits Home Safety Awareness Awareness of Need for Assistance at Home Good Awareness Ability to Problem Solve Emergency Able to Problem Solve Situations Medication Management Medication Management No Deficits Identified Money Management Money Management No Deficits Identified M6 OT- IP Functional Cognition Start: 03/11/19 14:34 Freq: Status: Active Protocol: Document 03/11/19 14:34 CGR (Rec: 03/11/19 15:11 CGR [email or web address]) Cognitive Factors Limiting Selfcare Function Cognitive Ability Level of Alertness Alert Patient Orientation Name Year Place Situation Attention Span Ability Capable of Focused Attention Capable of Sustained Attention Ability to Follow Commands Able to Follow One Step Commands Memory Description No Deficits Noted Safety Awareness No Deficits Noted Problem Solving Ability No deficits Noted Executive Function Ability No Deficits Noted Abstract Thinking Ability No Deficits Noted Cognitive Comments Cognitive Assessment Comments Pt appears to be WFL for cognition. OT- Vision and Hearing OT- Hearing Assessment OT- Hearing Assessment WFL OT- Vision Assessment Visual Acuity WFL Visual Attentiveness WFL Occular Pursuits WFL Visual Convergence WFL Visual Whitten WFL Vision Assessment Comments No glasses M7 OT- IP Mobility and Balance Start: 03/11/19 14:34 Freq: Status: Active Protocol: Document 03/11/19 14:34 CGR (Rec: 03/11/19 15:11 CGR [email or web address]) OT-Transfer Assessment Sit to and From Stand Sit to and from Stand Moderate Assistance Transfers Transfer Ability Moderate Assistance Technique Transfer Destination Chair Devices Transfer Assistive Devices Gait Belt Front Wheeled Walker Comments Mobility Comments Pt unable to advance RLE for mobility or for placement of leg in prep of transfer. OT- Balance Assessment Sitting Balance and Reactions Static Sitting Balance Ability Normal Dynamic Sitting Balance Ability Normal M8 OT- IP Objective Assessments Start: 03/11/19 14:34 Freq: Status: Active Protocol: Document 03/11/19 14:34 CGR (Rec: 03/11/19 15:11 CGR [email or web address]) OT Gross Range of Motion Upper Extremity Range of Motion Assessment Within Functional Limits OT Strength Upper Extremity Strength Assessment Within Functional Limits Comments Strength Comments 5/5 throughout OT- Coordination Assessment Upper Extremity Finger to Nose Test Within Functional Limits Finger Tapping Test Within Functional Limits OT-Muscle Tone Assessment Muscle Tone WNL Yes OT Sensation Assessment Comments Summary Comments Pt states typical sensation to BUE Edema Edema Present Edema Comments significant edema noted to the RLE M9 OT- IP Assessment and Plan Start: 03/11/19 14:34 Freq: Status: Active Protocol: Document 03/11/19 14:34 CGR (Rec: 03/11/19 15:11 CGR [email or web address]) OT Summary Assessment and Plan Potential Rehabilitation Potential Excellent Analytic Complexity at Evaluation Moderate Summary OT Impairments Pain Range of Motion Balance Functional Mobility Grooming Dressing Toileting Bathing Toilet Transfers Shower Transfers Progress Towards Goals Slow Progress due to Pain Assessment Summary Pt presents with significant decline to self care d/t new R hip fx. Pt is toe touch weight bearing with swelling noted to new R IM nailing. Activities performed in chair on this date d/t limited mobility. Pt is likely to progress quickly once pain and mobility improve. Goals Grooming Goal Independent Dressing Goal Independent Warehouse Supervisor 3Rd Shift Sock Aid Toileting Goal Independent Bathing Goal Independent Toilet Transfer Goal Independent Shower Transfer Goal Independent Days to Meet Goals 5 Frequency of Treatment Frequency Of Treatment Once a Day Treatment Plan OT Treatment Plan ADL Training Functional Mobility Therapeutic Exercises Patient/Family Education Discharge Planning Discharge Recommendations OT Discharge Recommendations SNF Rehab Other Discharge Recommendations d/t a complicated living situation and pt currently needing significant assist for ADLs, recommendation at this time is for SNF. Home Equipment Needs If home, pt will need tub transfer bench, toilet heightner with armrails or BSC that can be used over toilet, hip kit for LB dressing.
[2019-03-12] VITALS (8 sets, daily range): BP systolic 131–137; BP diastolic 63–88; PULSE 79–100; RESP 16–18; TEMP 36.6–38.1; O2SAT 97–99
[2019-03-12] MEDS: OXYCODONE IR 5 MG TABLET PO ×7 (00:21→22:32)
--- NOTE | 2019-03-12 06:12 | PC.NURSE ---
Shift note: At start of shift, shadow drainage to distal 3 coversite dressings, by end of shift, drainage noted on chux pad below 2nd and 4th distal dressings, distal 3 changed due to saturation and over lapping. 3 new dressings applied to site, immediate shadow drainage on 2nd and 4th coversite, incisions weeped during dressing change, serosang fluid. Pt tolerated well, medicated per MAR. Pt with a temp orally of 100.6, pt reports feeling well with moderate pain, will pass on to dayshift.
--- NOTE | 2019-03-12 07:18 | PM.PNPO.1 ---
Subjective Date Patient Seen: 03/12/19 Time Patient Seen: 07:18 Interval history: Comfortable at rest. Still unable to lift up his leg independently. Not able to get out of bed or walk independently yet. Still requiring 1 person assist. Per nursing, he has had a fair amount of drainage and had to have his dressing changed at least twice a day. Exam Vital Signs (past 8 hours): - 03/12/19 05:40 Temperature 100.6 F H Pulse Rate 91 H Respiratory Rate 16 Blood Pressure 133/88 Pulse Oximetry 99 Oxygen Delivery Method Room Air Oxygen Flow Rate 0 Const Orientation: alert and oriented x3 Extrem Other: Dressing was just changed earlier but currently clean dry intact. Soft calf easily wiggles toes 2+ distal pulse. Objective Labs Result Diagrams: 03/11/19 05:32 03/10/19 00:30 Assessment & Plan Post-op Postoperative Procedures Operation Date: 03/10/19 17:30 Actual Procedures Side Surgeon p Intramedullary Nailing Femur Right Robert Arrington MD status post IM nail of right hip fracture. He is running low-grade temperatures, most likely this is atelectasis and should improve with incentive spirometer and deep breathing with ambulation. Still not independent with ambulation, I anticipate 1 more day prior to discharge. We will also continue watching his drainage and see if this dries up. Quality VTE Deep Vein Thrombosis/Pulmonary Embolism Present on Admission: No
[2019-03-12 07:37] LABS: Add Manual Diff / Slide Review NO; Basophils Absolute Auto 0 /uL (0-100); Basophils Percent Auto 0.3 % (0-2); Eosinophils Absolute Auto 0 /uL (0-450); Eosinophils Percent Auto 0.1 % (2-4); Hematocrit 22.8 % (41-53); Hemoglobin 8.2 g/dL (13.5-17.5); Lymphocytes Absolute Auto 1600 /uL (1100-4500); Lymphocytes Percent Auto 17.3 % (25-40); Mean Corpuscular HGB Conc 35.9 % (30-36); Mean Corpuscular Hemoglobin 31.6 PG (26-34); Mean Corpuscular Volume 88.1 fL (80-100); Monocytes Absolute Auto 1000 /uL (0-900); Monocytes Percent Auto 10.6 % (3-14); Neutrophils Absolute Auto 6900 /uL (1500-7000); Neutrophils Percent Auto 71.7 % (50-75); Platelet Count 142 X10^3/uL (150-400); Red Blood Cell Count 2.59 X10^6/uL (4.5-5.9); Red Cell Distribution Width 12.3 % (11.6-14.8); White Blood Cell Count 9.6 X10^3/uL (4.5-11.0)
[2019-03-12] MEDS: DOCUSATE 100 MG CAPSULE PO ×2 (08:28→19:48)
[2019-03-12] MEDS: ACETAMINOPHEN 325 MG TABLET 975 MG PO (08:28)
[2019-03-12] MEDS: ENOXAPARIN 40 MG/0.4 ML SYRINGE SUBCUT (08:29)
[2019-03-12] MEDS: SODIUM CHLORIDE 0.9% FLUSH 10 ML IV ×2 (08:29→19:49)
--- NOTE | 2019-03-12 11:52 | CM.DPNOTE ---
TC from pt's mother Morena this morning. She requested that she and her Robert meet w/this BACON SKINNER this morning. Met w/pt to request permission for ongoing conversation w/parents about planning for safe DC? Pt says it's okay to speak w/his parents or any members of his family. Pt continues to not want any bicycle subassembler in his room, he also does not want his parents in his room, pt sensitive to any conversation about latter-day. Pt remains aware and agreeable to a DC to SNF, this BACON SKINNER encouraged pt to consider a b/u plan in case SNF could not be secured? Pt says he could go home w/parents and have his sisters help him in ADLs. Then met w/pt's parents. This BACON SKINNER explained current recommendations for SNF and Morena and Robert agree. Explained the process through [place] [employer]. Then discussed pt's report that if he went home for recovery, his sisters could care for him ? Morena explains this would not be a safe option since his sisters are busy and not old enough to be appropriate cgs for pt. Pt would be welcome home upon DC from SNF once more capable to care for himself. Then discussed the concerns voiced by Morena on Wednesday re: pt's mental health, Dad Rboert shares the same concerns . Explained that pt has been very calm, respectful and appropriate during his stay here. He has shown good insight into the severity of his injury and need for rehab for recovery. He has also been compliant in care. Parents happy to hear this but continue to ask for support in getting pt the mental health help they feel he needs ? Explained to pt's family that, based on concerns, and the thoroughness of their documentation of such concerns from collateral contacts, it might be helpful if a psychiatrist could consult while pt is here to further assess pt's current presentation in addition to background information. Although these items will need to be considered, and family aware: -A physician needs to order a psych consult and deem it necessary -Availability of a psychiatrist -Pt's agreement to speak with a psychiatrist Leelee understand and will await updates as long as pt remains agreeable to such. Attempted call to los Jo at [facility], to talk about this referral, she is back Wednesday. TC to Deysi Mascorro at [facility]# [phone] will be helpful Wednesday. Pt states no SNF preference at this time. ANDI Lees
--- NOTE | 2019-03-12 12:08 | PT.IPTN ---
Surgery Performed Operation Date: 03/10/19 17:30 Actual Procedures p Intramedullary Nailing Femur(Right) - Robert Arrington MD Physical Therapy Treatment Note M2 PT-IP Current Condition Start: 03/11/19 12:44 Freq: NEEDED Status: Active Protocol: Document 03/11/19 10:13 AB (Rec: 03/11/19 12:58 AB [id number]) Physical Therapy Current Condition Current Condition Evaluation Date 03/11/19 Treatment Diagnosis s/p R trochanteric/femoral fx s/p intramedullary fixation; diff in walking Onset Date 03/09/19 Weight Bearing Status Weight Bearing Status Touch Down Weight Bearing Allowed Weight Bearing Amount (enter % RLE TTWB or #) (%) M3 PT-IP Subjective Start: 03/11/19 12:44 Freq: NEEDED Status: Active Protocol: Document 03/12/19 11:35 CLB (Rec: 03/12/19 12:08 CLB [id number]) Subjective Physical Therapy Visit Type Type Patient Unavailable Notes Checked with pt twice this morning and pt was unavailable first attemp with doctor, second attempt pt was eating lunch. Will return in afternoon. Discharge Recommendations PT Discharge Recommendations SNF Rehab
--- NOTE | 2019-03-12 15:57 | PT.IPTN ---
Current Diagnoses Displaced intertrochanteric fracture of right femur, initial encounter for closed fracture (03/09/19) Surgery Performed Operation Date: 03/10/19 17:30 Actual Procedures p Intramedullary Nailing Femur(Right) - Robert Arrington MD Physical Therapy Treatment Note M2 PT-IP Current Condition Start: 03/11/19 12:44 Freq: NEEDED Status: Active Protocol: Document 03/11/19 10:13 AB (Rec: 03/11/19 12:58 AB [id number]) Physical Therapy Current Condition Current Condition Evaluation Date 03/11/19 Treatment Diagnosis s/p R trochanteric/femoral fx s/p intramedullary fixation; diff in walking Onset Date 03/09/19 Weight Bearing Status Weight Bearing Status Touch Down Weight Bearing Allowed Weight Bearing Amount (enter % RLE TTWB or #) (%) M3 PT-IP Subjective Start: 03/11/19 12:44 Freq: NEEDED Status: Active Protocol: Document 03/12/19 15:10 CLB (Rec: 03/12/19 15:57 CLB [id number]) Subjective Physical Therapy Visit Type Type Treatment Note Visit Start Time 15:10 Visit Stop Time 15:35 Total Visit Minutes 25 Number of ADJUNCT TEACHER Visits 1 Physical Therapy Visit Comments Patient Comments pt agreeable to do PT Therapy Pain Assessment Pain When Pain Assessed At Rest Pain Present Pain Present Pain Reported Location Right Thigh Intensity 2 Scale Used Numeric (1 - 10) Pain Management Techniques Apply Cold Re-positioning Timing of Activity with Medications M4 PT-IP Mobility and Gait Start: 03/11/19 12:44 Freq: NEEDED Status: Active Protocol: Document 03/12/19 15:10 CLB (Rec: 03/12/19 15:57 CLB [id number]) PT-Bed Mobility Assessment Supine to Sit Supine to Sit Maximum Assistance 1 Person Assistance Scooting Scooting to Edge of Bed Maximum Assistance PT-Transfer Assessment Sit to and From Stand Sit to and from Stand Moderate Assistance 1 Person Assistance Use of Upper Extremities Equipment Transfer Assistive Device Gait Belt Front Wheeled Walker Orthotic/Prosthetic Devices or Brace: No Transfers Transfer Destination Chair Transfer Technique Stand Step Pivot Transfer Ability Level of Assist Moderate Assistance Maximum Assistance 1 Person Assistance Use of Upper Extremities Comments Mobility Comments Pt required Max A of RLE and used UE to assist getting OOB. Pt required assist with getting foot out before standing and sitting. Pt stood and became dizzy causing him to return to a seated position x2 before performing step pivot transfer to chair. Gait Assessment Gait Gait Assistance Required: Maximum Assistance Distance (Feet) 2 Able to Maintain Weight Bearing Status Yes During Gait Assistive Devices Assistive Device Gait Belt Front Wheeled Walker Orthotic/Prosthetic Devices or Brace: No Gait Deviations General Gait Pattern Decreased Stride Length Decreased Feet Clearance Factors Limiting Gait Function Factors Limiting Gait Function Decreased Activity Tolerance Decreased Strength Limited Range of Motion Pain Poor Balance Comments Gait Comments Pt needs Max A of RLE to EOB. Pt requires Max A of RLE to advance RLE. Pt needs cues to weight shift for RLE advancement. M5 PT-IP Objective Assessments Start: 03/11/19 12:44 Freq: NEEDED Status: Active Protocol: Document 03/11/19 10:13 AB (Rec: 03/11/19 12:58 AB [id number]) Orientation Orientation/Cognition Level of Alertness Alert Safety Awareness Understands Safety Issues Memory Description No Deficits Noted Gross Range of Motion Lower Extremity ROM Assessment Right Impaired Impairments RLE tightness and pain inhibiting movement Strength Lower Extremity Strength Assessment Right Impaired Hip 2+/5 Knee 3-/5 Coordination Assessment Gross Coordination Gross Coordination WNL Sensation Assessment Sensation Gross Sensation WNL Muscle Tone Muscle Tone WNL Yes M6 PT-IP Treatment Start: 03/11/19 12:44 Freq: NEEDED Status: Active Protocol: Document 03/11/19 14:23 AB (Rec: 03/11/19 16:37 AB [id number]) Physical Therapy Treatment Education Education Provided Precautions Weight Bearing Status Safety M7 PT-IP Assessment and Plan Start: 03/11/19 12:44 Freq: NEEDED Status: Active Protocol: Document 03/12/19 15:10 CLB (Rec: 03/12/19 15:57 CLB [id number]) PT Summary Assessment and Plan Summary Impairments Pain ROM Strength Balance Coordination Tone Bed Mobility Transfers Gait Activity Tolerance Progress Towards Goals Slow Progress due to Pain Slow Progress due to Activity Tolerance Assessment Summary Pt able to perform step pivot transfer to chair with Max A of RLE. Pt relies on UE's and weight shifting to advance RLE with assist of therapist. Pt becomes dizzy with standing and required sitting twice before able to safely transfer to chair. PT BP in sitting 113/70. Pt will require SNF rehab to improve strength and mobility. Goals Bed Mobility Goal Standby Assistance Transfer Goal Contact Guard Assistance Crutches Front Wheeled Walker Gait Goal Contact Guard Assistance Crutches Front Wheel Walker Gait Distance 50 Other Goals up/down 3 steps using crutches SBA Days to Meet Goals 10 Frequency of Treatment Frequency Of Treatment Twice a Day Treatment Plan Physical Therapy Treatment Plan Bed Mobility Training Transfer Training Gait Training Therapeutic Exercise Balance Retraining Post Op Education Discharge Planning Hot or Cold Pack Neuromuscular Re-ed Coordination Retraining Manual Therapy Other Recommendations and Next Treatment ambulation if appropriate Focus Recommendations To Nursing Amount of Assist Needed 2 Person Assist Discharge Recommendations PT Discharge Recommendations SNF Rehab
[2019-03-13] VITALS (7 sets, daily range): BP systolic 125–147; BP diastolic 59–79; PULSE 86–99; RESP 16–18; TEMP 36.8–37.7; O2SAT 98–100
[2019-03-13] MEDS: OXYCODONE IR 5 MG TABLET PO ×7 (02:08→20:54)
--- NOTE | 2019-03-13 08:26 | PM.PNPO.1 ---
Subjective Date Patient Seen: 03/13/19 Time Patient Seen: 08:26 Interval history: Patient is POD#3 s/p intramedullary fixation of hip fracture with Dr. Arrington. His pain continues to be well managed. He has been slow to mobilize with PT and is requiring 2 person assist. He had intermittent mild fevers but has been afebrile since yesterday and denies any chills, night sweats. No chest pain or shortness of breath. Exam Vital Signs (past 8 hours): - 03/13/19 01:33 03/13/19 06:40 03/13/19 08:00 Temperature 98.6 F 98.4 F 99.7 F H Pulse Rate 96 H 93 H 99 H Respiratory Rate 16 16 16 Blood Pressure 129/70 136/68 147/73 H Pulse Oximetry 99 98 98 Oxygen Delivery Method Room Air Oxygen Flow Rate 0 Narrative Exam Narrative: 28 year old resting in bed in no acute distress. Alert and oriented. Dressings in place are intact, with fair amount of shadow drainage. Neuromuscularly intact in distal extremity. Palpable pulses. Soft, compressible calves. Objective Labs Result Diagrams: 03/12/19 07:25 03/10/19 00:30 Assessment & Plan Post-op Postoperative Procedures Operation Date: 03/10/19 17:30 Actual Procedures Side Surgeon p Intramedullary Nailing Femur Right Robert Arrington MD Patient continues to progress post operatively though he has been slow to mobilize. Continue to work with PT today. Dressing change today with continued monitoring. Patient was unable to tolerate compression previously. He has significant mental health history with diagnosis of Schizoaffective disorder bipolar type which complicates rehab potential. Will consider psych consult. Possible D/C to home tomorrow. Quality VTE Deep Vein Thrombosis/Pulmonary Embolism Present on Admission: No
[2019-03-13] MEDS: DOCUSATE 100 MG CAPSULE PO ×2 (08:45→20:55)
[2019-03-13] MEDS: SODIUM CHLORIDE 0.9% FLUSH 10 ML IV ×2 (08:45→20:55)
[2019-03-13] MEDS: ENOXAPARIN 40 MG/0.4 ML SYRINGE SUBCUT (08:45)
[2019-03-13] MEDS: ACETAMINOPHEN 325 MG TABLET 975 MG PO ×2 (09:05→18:01)
--- NOTE | 2019-03-13 12:41 | PT.IPTN ---
Current Diagnoses Displaced intertrochanteric fracture of right femur, initial encounter for closed fracture (03/09/19) Surgery Performed Operation Date: 03/10/19 17:30 Actual Procedures p Intramedullary Nailing Femur(Right) - Robert Arrington MD Physical Therapy Treatment Note M2 PT-IP Current Condition Start: 03/11/19 12:44 Freq: NEEDED Status: Active Protocol: Document 03/11/19 10:13 AB (Rec: 03/11/19 12:58 AB [id number]) Physical Therapy Current Condition Current Condition Evaluation Date 03/11/19 Treatment Diagnosis s/p R trochanteric/femoral fx s/p intramedullary fixation; diff in walking Onset Date 03/09/19 Weight Bearing Status Weight Bearing Status Touch Down Weight Bearing Allowed Weight Bearing Amount (enter % RLE TTWB or #) (%) M3 PT-IP Subjective Start: 03/11/19 12:44 Freq: NEEDED Status: Active Protocol: Document 03/13/19 11:55 CLB (Rec: 03/13/19 12:40 CLB [id number]) Subjective Physical Therapy Visit Type Type Treatment Note Visit Start Time 11:55 Visit Stop Time 12:10 Total Visit Minutes 15 Notes Co-treated with OT Katie Number of SNACK BAR COOK Visits 2 Physical Therapy Visit Comments Patient Comments pt agreeable to do PT Therapy Pain Assessment Pain When Pain Assessed At Rest Pain Present Pain Present Pain Reported Location Right Thigh Intensity 2 Scale Used Numeric (1 - 10) Pain Management Techniques Apply Cold Re-positioning Timing of Activity with Medications M4 PT-IP Mobility and Gait Start: 03/11/19 12:44 Freq: NEEDED Status: Active Protocol: Document 03/13/19 11:55 CLB (Rec: 03/13/19 12:40 CLB [id number]) PT-Bed Mobility Assessment Supine to Sit Supine to Sit Moderate Assistance 1 Person Assistance Head of Bed Elevated Scooting Scooting to Edge of Bed Moderate Assistance PT-Transfer Assessment Sit to and From Stand Sit to and from Stand Contact Guard Assistance 1 Person Assistance Use of Upper Extremities Equipment Transfer Assistive Device Gait Belt Front Wheeled Walker Orthotic/Prosthetic Devices or Brace: No Transfers Transfer Destination Chair Toilet Transfer Technique Stand Step Pivot Transfer Ability Level of Assist Contact Guard Assistance 1 Person Assistance Use of Upper Extremities Comments Mobility Comments Pt required Mod A of RLE and used UE to assist getting to EOB. Gait Assessment Gait Gait Assistance Required: Contact Guard Assist 1 Person Assist Distance (Feet) 8 Able to Maintain Weight Bearing Status Yes During Gait Assistive Devices Assistive Device Gait Belt Front Wheeled Walker Orthotic/Prosthetic Devices or Brace: No Gait Deviations General Gait Pattern Decreased Stride Length Decreased Feet Clearance Factors Limiting Gait Function Factors Limiting Gait Function Decreased Activity Tolerance Decreased Strength Limited Range of Motion Pain Poor Balance Comments Gait Comments Pt able to manage walker, weight shift and advance RLE with use of UE use on walker. Pt requires cues to TDWB during standing rest breaks. Pt had to stop twice to rest due to mild dizziness but it subsided and pt was able to ambulate a bit more. Pt performed ambulation with chair follow. After rest break pt was moved in chair to BR door where pt stood and ambulated to toilet. M5 PT-IP Objective Assessments Start: 03/11/19 12:44 Freq: NEEDED Status: Active Protocol: Document 03/11/19 10:13 AB (Rec: 03/11/19 12:58 AB [id number]) Orientation Orientation/Cognition Level of Alertness Alert Safety Awareness Understands Safety Issues Memory Description No Deficits Noted Gross Range of Motion Lower Extremity ROM Assessment Right Impaired Impairments RLE tightness and pain inhibiting movement Strength Lower Extremity Strength Assessment Right Impaired Hip 2+/5 Knee 3-/5 Coordination Assessment Gross Coordination Gross Coordination WNL Sensation Assessment Sensation Gross Sensation WNL Muscle Tone Muscle Tone WNL Yes M6 PT-IP Treatment Start: 03/11/19 12:44 Freq: NEEDED Status: Active Protocol: Document 03/11/19 14:23 AB (Rec: 03/11/19 16:37 AB [id number]) Physical Therapy Treatment Education Education Provided Precautions Weight Bearing Status Safety M7 PT-IP Assessment and Plan Start: 03/11/19 12:44 Freq: NEEDED Status: Active Protocol: Document 03/13/19 11:55 CLB (Rec: 03/13/19 12:40 CLB [id number]) PT Summary Assessment and Plan Summary Impairments Pain ROM Strength Balance Coordination Tone Bed Mobility Transfers Gait Activity Tolerance Progress Towards Goals Slow Progress due to Pain Slow Progress due to Activity Tolerance Assessment Summary Pt continues to require assist with RLE when getting OOB. Pt improved with gait quality and distance. Pt able to advance RLE with weight shift and use of UE's and was able to lift foot off ground just enough for toes to clear and advance foot forward. Pt stopped twice for standing rest break due to fatigue and dizziness. Goals Bed Mobility Goal Standby Assistance Transfer Goal Contact Guard Assistance Crutches Front Wheeled Walker Gait Goal Contact Guard Assistance Crutches Front Wheel Walker Gait Distance 50 Other Goals up/down 3 steps using crutches SBA Days to Meet Goals 10 Frequency of Treatment Frequency Of Treatment Twice a Day Treatment Plan Physical Therapy Treatment Plan Bed Mobility Training Transfer Training Gait Training Therapeutic Exercise Balance Retraining Post Op Education Discharge Planning Hot or Cold Pack Neuromuscular Re-ed Coordination Retraining Manual Therapy Other Recommendations and Next Treatment ambulation as appropriate Focus Recommendations To Nursing Amount of Assist Needed 2 Person Assist Discharge Recommendations PT Discharge Recommendations SNF Rehab
--- NOTE | 2019-03-13 13:02 | OT.IP.TRT ---
Current Diagnoses Displaced intertrochanteric fracture of right femur, initial encounter for closed fracture (03/09/19) Surgery Performed Operation Date: 03/10/19 17:30 Actual Procedures p Intramedullary Nailing Femur(Right) - Robert Arrington MD Occupational Therapy Treatment Note M2 OT-IP Current Condition Start: 03/11/19 14:34 Freq: Status: Active Protocol: Document 03/11/19 14:34 CGR (Rec: 03/11/19 15:11 CGR [email or web address]) Occupational Therapy Current Condition Current Condition Evaluation Date 03/11/19 Treatment Diagnosis R femur fracture Diagnosis Onset Date 03/10/19 Weight Bearing Status Allowed Weight Bearing Amount (enter % Toe touch weight bearing or #) (%) M3 OT- IP Subjective and Pain Start: 03/11/19 14:34 Freq: Status: Active Protocol: Document 03/13/19 12:45 CCC (Rec: 03/13/19 13:01 CCC [email or web address]) OT- Subjective Occupational Therapy Visit Type Type Treatment Note Visit Start Time 11:55 Visit Stop Time 12:35 Total Visit Minutes 40 Occupational Therapy Visit Comments Patient Comments Pt after encouragement willing to get up. Pt very cooperative and pleasant. OT Pain Assessment Pain When Pain Assessed At Rest Pain Present Pain Present Pain Reported Location Right Thigh Intensity 2 Scale Used Numeric (1 - 10) M4 OT- IP ADL's Start: 03/11/19 14:34 Freq: Status: Active Protocol: Document 03/13/19 12:45 CCC (Rec: 03/13/19 13:01 CCC [id number]) OT [id number] General Evaluation Self-Feeding Ability Independent OT ADL-Dressing General Eval Lower Body Dressing Ability Maximum Assistance Areas Needing Assistance Socks Comments OT Dressing Comments ABle to show pt LB AED for LB dressing needs, pt able to do sock aid and canine service instructor trainer to monica/ doff left sock, at this time dependent for right sock as having trouble to lift up right leg and foot. OT ADL-Toileting General Evaluation Toileting Ability Standby Assistance Minimal Assistance Comments OT Toileting Comments SBA as pt heavily relies on grab bar and BSC for otherside to help lower himself down. Educated to pt that leaning to left side would be easier to wipe , and inaddition to have urinal and BSC/RTS with handles would be helpful at this time. OT ADL-Bathing Comments OT Bathing Comments Not performed on this date. Pt will benefit from tub bench at this time. M5 OT- IP IADL's Start: 03/11/19 14:34 Freq: Status: Active Protocol: Document 03/11/19 14:34 CGR (Rec: 03/11/19 15:11 CGR [email or web address]) OT-Instrumental Activities of Daily Living Deficits IADL Deficits Identified No Deficits Home Safety Awareness Awareness of Need for Assistance at Home Good Awareness Ability to Problem Solve Emergency Able to Problem Solve Situations Medication Management Medication Management No Deficits Identified Money Management Money Management No Deficits Identified M6 OT- IP Functional Cognition Start: 03/11/19 14:34 Freq: Status: Active Protocol: Document 03/13/19 12:45 [facility] (Rec: 03/13/19 13:01 [facility] [id number]) Cognitive Factors Limiting Selfcare Function Cognitive Ability Level of Alertness Alert Patient Orientation Name Year Place Situation Attention Span Ability Capable of Focused Attention Capable of Sustained Attention Ability to Follow Commands Able to Follow One Step Commands Memory Description No Deficits Noted Safety Awareness Underestimates Need for Assistance Problem Solving Ability No deficits Noted Executive Function Ability No Deficits Noted Abstract Thinking Ability No Deficits Noted Cognitive Comments Cognitive Assessment Comments Pt needing occasional reminders for safety, TTWB, pt able to do a good job to keep most of his weight on the left foot and heavily relies on his BUE on FWW while up. Pt states prior that he was so independent and now very enlightening that he has to slow down , thinks things through first, and realizing that he will need assist. M7 OT- IP Mobility and Balance Start: 03/11/19 14:34 Freq: Status: Active Protocol: Document 03/13/19 12:45 [facility] (Rec: 03/13/19 13:01 [facility] [id number]) OT-Transfer Assessment Sit to and From Stand Sit to and from Stand Minimal Assistance Transfers Transfer Ability Contact Guard Assistance Minimal Assistance Technique Transfer Destination Chair Toilet Devices Transfer Assistive Devices Gait Belt Front Wheeled Walker Comments Mobility Comments Pt still having trouble to move RLE. SHELL to stand from lower surfaces. Pt not able to move RLE for bed mobility , even with trial on use of gait belt to assist , pt needing physical assist. To trial cane next time. OT- Balance Assessment Sitting Balance and Reactions Static Sitting Balance Ability Normal Dynamic Sitting Balance Ability Normal Standing Balance and Reactions Static Standing Balance Ability Good M8 OT- IP Objective Assessments Start: 03/11/19 14:34 Freq: Status: Active Protocol: Document 03/11/19 14:34 CGR (Rec: 03/11/19 15:11 CGR [email or web address]) OT Gross Range of Motion Upper Extremity Range of Motion Assessment Within Functional Limits OT Strength Upper Extremity Strength Assessment Within Functional Limits Comments Strength Comments 5/5 throughout OT- Coordination Assessment Upper Extremity Finger to Nose Test Within Functional Limits Finger Tapping Test Within Functional Limits OT-Muscle Tone Assessment Muscle Tone WNL Yes OT Sensation Assessment Comments Summary Comments Pt states typical sensation to BUE Edema Edema Present Edema Comments significant edema noted to the RLE M9 OT- IP Assessment and Plan Start: 03/11/19 14:34 Freq: Status: Active Protocol: Document 03/13/19 12:45 CCC (Rec: 03/13/19 13:01 CCC [email or web address]) OT Summary Assessment and Plan Potential Rehabilitation Potential Excellent Analytic Complexity at Evaluation Moderate Summary OT Impairments Pain Range of Motion Balance Functional Mobility Grooming Dressing Toileting Bathing Toilet Transfers Shower Transfers Progress Towards Goals Progressing Toward Goals Assessment Summary Pt doing much better today and able to get to the bathroom with FWW and assist. Pt still needing MAX a for LB dressing needs due to pain and difficulty to move RLE. Pt would benefit from short skilled rehab stay. Goals Grooming Goal Independent Dressing Goal Independent Mental Health Practitioner Sock Aid Toileting Goal Independent Bathing Goal Standby Assistance Toilet Transfer Goal Independent Shower Transfer Goal Independent Days to Meet Goals 4 Frequency of Treatment Frequency Of Treatment Once a Day Treatment Plan OT Treatment Plan ADL Training Functional Mobility Therapeutic Exercises Patient/Family Education Discharge Planning Other Treatment Recommendations and Next shower Treatment Focus Discharge Recommendations OT Discharge Recommendations SNF Rehab Other Discharge Recommendations d/t a complicated living situation and pt currently needing significant assist for ADLs, recommendation at this time is for SNF. Home Equipment Needs If pt going home will need caregiver training, tub bench, BSC/rts with handles, Hip kit , FWW , wc for longer distances
--- NOTE | 2019-03-13 14:37 | PT.IPTN ---
Current Diagnoses Displaced intertrochanteric fracture of right femur, initial encounter for closed fracture (03/09/19) Surgery Performed Operation Date: 03/10/19 17:30 Actual Procedures p Intramedullary Nailing Femur(Right) - Robert Arrington MD Physical Therapy Treatment Note Notes Pt wanting to wait until next dose of pain meds to attempt mobilization. RN aware. PT will return.
--- NOTE | 2019-03-13 15:32 | CM.DPC ---
DCP/continued: Reviewed notes. Spoke with Ortho/PA Katya Crandall ph# [phone] re: psychiatric evaluation. Evaluation obtained. Spoke with Dr. Ramos in person and provided her with information provided by family/friends/counselor re: mental health issues. Dr. Ramos will review and evaluate today. Also spoke with therapy. Current recommendation is SNF however, they hope that patient will progress enough to go home? At this time d/c plan unclear. 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 Ramos's evaluation/recommendations when available. ANDI Mckoy
--- NOTE | 2019-03-13 16:36 | PT.IPTN ---
Current Diagnoses Displaced intertrochanteric fracture of right femur, initial encounter for closed fracture (03/09/19) Surgery Performed Operation Date: 03/10/19 17:30 Actual Procedures p Intramedullary Nailing Femur(Right) - Robert Arrington MD Physical Therapy Treatment Note M2 PT-IP Current Condition Start: 03/11/19 12:44 Freq: NEEDED Status: Active Protocol: Document 03/11/19 10:13 AB (Rec: 03/11/19 12:58 AB [id number]) Physical Therapy Current Condition Current Condition Evaluation Date 03/11/19 Treatment Diagnosis s/p R trochanteric/femoral fx s/p intramedullary fixation; diff in walking Onset Date 03/09/19 Weight Bearing Status Weight Bearing Status Touch Down Weight Bearing Allowed Weight Bearing Amount (enter % RLE TTWB or #) (%) M3 PT-IP Subjective Start: 03/11/19 12:44 Freq: NEEDED Status: Active Protocol: Document 03/13/19 15:50 LJ (Rec: 03/13/19 16:36 LJ [id number]) Subjective Physical Therapy Visit Type Type Treatment Note Visit Start Time 15:50 Visit Stop Time 16:20 Total Visit Minutes 30 Notes Pt in chair willing to get up to ambulate Therapy Pain Assessment Pain When Pain Assessed At Rest Pain Present Pain Present Pain Reported Location Right Thigh Pain Management Techniques Apply Cold Elevation Re-positioning Timing of Activity with Medications M4 PT-IP Mobility and Gait Start: 03/11/19 12:44 Freq: NEEDED Status: Active Protocol: Document 03/13/19 15:50 LJ (Rec: 03/13/19 16:36 LJ [id number]) PT-Bed Mobility Assessment Rolling Type of Rolling Roll to Right Sit to Supine Sit to Supine Standby Assistance Contact Guard Assistance Scooting Scooting to Edge of Bed Standby Assistance Contact Guard Assistance PT-Transfer Assessment Sit to and From Stand Sit to and from Stand Contact Guard Assistance 1 Person Assistance Use of Upper Extremities Equipment Transfer Assistive Device Gait Belt Front Wheeled Walker Orthotic/Prosthetic Devices or Brace: No Transfers Transfer Destination Bed Wheelchair Transfer Ability Level of Assist Contact Guard Assistance 1 Person Assistance Use of Upper Extremities Comments Mobility Comments Pt required Jonh from chair to standing for moving RLE forward. Sit<>stand Jonh with RLE. With leg professor of history pt able to move LE with SBA. Pt returned to bed with leg professor of history and Jonh for guideance with RLE into bed. Gait Assessment Gait Gait Assistance Required: Contact Guard Assist 1 Person Assist Distance (Feet) 40 Able to Maintain Weight Bearing Status Yes During Gait Assistive Devices Assistive Device Gait Belt Front Wheeled Walker Orthotic/Prosthetic Devices or Brace: No Gait Deviations General Gait Pattern Decreased Stride Length Decreased Feet Clearance Factors Limiting Gait Function Factors Limiting Gait Function Decreased Activity Tolerance Decreased Strength Limited Range of Motion Pain Poor Balance Comments Gait Comments Pt ambulated from chair out to hallway with ModA for advancing RLE initially. Pt using hip hiking to assist foot clearance. Had difficulty with hip flexion to advance leg but after several minutes of walking was able to advance leg on his own. Minimal manual cuing and assist. Required a seated rest break in WC while ambulating in hallway. M5 PT-IP Objective Assessments Start: 03/11/19 12:44 Freq: NEEDED Status: Active Protocol: Document 03/11/19 10:13 AB (Rec: 03/11/19 12:58 AB [id number]) Orientation Orientation/Cognition Level of Alertness Alert Safety Awareness Understands Safety Issues Memory Description No Deficits Noted Gross Range of Motion Lower Extremity ROM Assessment Right Impaired Impairments RLE tightness and pain inhibiting movement Strength Lower Extremity Strength Assessment Right Impaired Hip 2+/5 Knee 3-/5 Coordination Assessment Gross Coordination Gross Coordination WNL Sensation Assessment Sensation Gross Sensation WNL Muscle Tone Muscle Tone WNL Yes M6 PT-IP Treatment Start: 03/11/19 12:44 Freq: NEEDED Status: Active Protocol: Document 03/13/19 15:50 GRAYSON (Rec: 03/13/19 16:36 LJ [id number]) Physical Therapy Treatment Exercises Exercises Ankle Pumps Gluteal Sets Quad Sets M7 PT-IP Assessment and Plan Start: 03/11/19 12:44 Freq: NEEDED Status: Active Protocol: Document 03/13/19 15:50 LJ (Rec: 03/13/19 16:36 LJ [id number]) PT Summary Assessment and Plan Potential Rehabilitation Potential Good Summary Impairments Pain ROM Strength Balance Coordination Tone Bed Mobility Transfers Gait Activity Tolerance Progress Towards Goals Slow Progress due to Pain Slow Progress due to Activity Tolerance Assessment Summary Pt improved with bed mobility and ambulation. He is able to use leg professor of history to get into bed . Requires Jonh with leg professor of history for safety and guiding leg for smooth and slow movement. Goals Bed Mobility Goal Standby Assistance Transfer Goal Contact Guard Assistance Crutches Front Wheeled Walker Gait Goal Contact Guard Assistance Crutches Front Wheel Walker Gait Distance 50 Other Goals up/down 3 steps using crutches SBA Days to Meet Goals 10 Frequency of Treatment Frequency Of Treatment Twice a Day Treatment Plan Physical Therapy Treatment Plan Bed Mobility Training Transfer Training Gait Training Therapeutic Exercise Balance Retraining Post Op Education Discharge Planning Hot or Cold Pack Neuromuscular Re-ed Coordination Retraining Manual Therapy Other Recommendations and Next Treatment ambulation as appropriate Focus
--- NOTE | 2019-03-13 17:32 | PM.CN ---
History of Present Illness Date Patient Seen: 03/13/19 Time Patient Seen: 12:40 Chief complaint: states right femure/upper leg pain from fall Reason for consult: Guidance for dispo Requesting provider: Katya Crandall Narrative: CC: ?I?m ok? HOSPITAL COURSE: 28M admitted 03/10/19 with femur fracture after fall skateboarding, now s/p intramedullary fixation on 03/10/19. Cooperative during stay, considering dispo, team has question of previous psychiatric symptoms & request evaluation for treatment recommendations and appropriate services upon discharge. Medically, running low grade fever at times, BP slightly elevate at times (likely expected with pain). No psychotropic medications. Receiving prn pain medications; prn for lorazepam & zolpidem available but no record of taking. Labwork largely WNL. COLLATERAL FROM STAFF: Cooperative with care, no safety concerns, no clear delusions or paranoia in the hospital. INTERVIEW: ?I?m ok? pt reports not having much of a fall for this big of an injury. He reports pain is ok, medications help but don?t make him feel loopy. Denies feeling depressed, mentions recent breakup with his girlfriend. Denies SI currently or in the past. Denies hallucinations currently, denies feeling like his mind is playing tricks on him. Mentions growing up in a cult, referencing his fang, and not wanting to talk to a traffic i manager that stopped by. Feels safe if he were to return home following d/c (currently staying with parents after living with GF x5y). States that he trusts his mom & sisters to help with things, given his injury. Reports feeling depressed in the past, denies feeling depressed currently. States that there have been times where he goes 36 hr without sleeping and then sleeps for 36 hr. Mentions going to a counselor in the past ?but it was weird?. COLLATERAL Info: Several affdavits included with pt?s records, from therapist, sister, and partner dated from late January ? mid-February 2019. These raise concerns for delusions & paranoia, and significant changes in behavior. Sister?s affidavit mentions seeking involuntary shelter. [facility] Social History (Updated 03/09/19 @ 23:36 by Billy Chavez DO) marital status: unmarried,single household members: family lives independently: Yes caregiver/support person: No housing: house Smoking Status: Current every day smoker alcohol intake: current Social History (Updated 03/09/19 @ 23:36 by Billy Chavez DO) marital status: unmarried,single household members: family lives independently: Yes caregiver/support person: No housing: house Smoking Status: Current every day smoker alcohol intake: current Comment: PAST PSYCHIATRIC HISTORY: Mentions h/o depression; denies h/o SA, no known past medication trials. Unsure if there is any FH of bipolar disorder, wonders about his mother?s mental health SUBSTANCE USE HISTORY: Frequent marijuana use FAMILY HISTORY: no known h/o bipolar disorder SOCIAL HISTORY: recent breakup with GF, currently residing with parents, not DEVELOPMENTAL HISTORY: grew up locally, 1 of 9 children; raised in [place] & describes feeling like he was in a cult PCP: Laurie SIGNIFICANT MEDICAL HISTORY: no chronic medications or medical issues Meds Home Medications Medication Instructions Recorded Confirmed Type No Known Home Medications 03/10/19 03/10/19 History Allergies Allergy/AdvReac Type Severity Reaction Status Date / Time No Known Drug Allergies Allergy Verified 03/09/19 23:42 Review of Systems Constitutional Constitutional: Reports difficulty sleeping Eyes Eyes: Denies change in vision ENT Ears, Nose, Mouth, and Throat: No abnormal hearing and No dizziness Cardiovascular Cardiovascular: Denies shortness of breath Respiratory Respiratory: Denies dyspnea Gastrointestinal Gastrointestinal: Denies abdominal pain Musculoskeletal Comments: +leg pain Neurologic Neurologic: Denies abnormal hearing, Denies abnormal speech, Denies confusion and Denies dizziness Psychiatric Psychiatric: Reports as per HPI, Denies anxiety, Denies confusion, Denies auditory hallucinations and Denies hopelessness Hematologic/Lymphatic Hematologic/Lymphatic: Reports system reviewed and no additional complaints, except as documented Allergic/Immunologic Allergic/Immunologic: Reports system reviewed and no additional complaints, except as documented Exam Vital Signs (past 8 hours): - 03/13/19 12:00 03/13/19 15:30 Temperature 98.2 F 99.8 F H Pulse Rate 86 99 H Respiratory Rate 16 18 Blood Pressure 131/62 134/79 Pulse Oximetry 99 100 Oxygen Delivery Method Room Air Oxygen Flow Rate 0 Narrative Exam Narrative: MENTAL STATUS EXAM Appearance: groomed with short hair, wearing hospital garb, casually dressed, appears stated age Behavior: Calm, cooperative, good eye contact, no psychomotor agitation or slowing, no tremor or involuntary movements observed; sitting in chair Gait: sitting, not observed Speech: Normal rate, volume, and sendy Mood: ok Affect: Congruent with content, euthymic, normal range and reactivity Thought Process: Linear, logical, goal-directed Thought Content: Denies suicidal ideation, no evidence of HI, denies hallucinations, no evidence of paranoia or delusions Attention: Attentive to interview Orientation: Oriented to person place and time Memory: Intact for interview, not formally tested Insight: Fair-limited Judgment: Fair Objective Labs Result Diagrams: 03/12/19 07:25 03/10/19 00:30 Assessment & Plan Assessment & Plan narrative: ASSESSMENT: Gabo Tamez is a 28-year-old male, single, admitted to on 03/10/19 with femoral fracture now s/u intramedullary nailing. Psychiatry consult requested for help with discharge planning, given affidavits from family regarding mental health. On my exam today, Gabo is not displaying active psychiatric symptoms, and has been cooperative & appropriate with his medical care. I do not have active concerns about psychiatric symptoms interfering with his immediate medical care or impacting his discharge from the hospital, I feel he is appropriate for any discharge felt appropriate by his surgical team. His family?s affidavits raise serious concern for recent manic symptoms, and Gabo endorses history of depression. Given his lack of current symptoms, I feel the best plan is to try & engage him in any treatment he is willing to accept which could help create rapport for later treatment. This may be possible through his primary care clinic, with behavioral health integration program (IP). Based on family?s affidavits, it appears he has not pursued care in the past. Certainly when present manic or psychotic symptoms can create emergent need for treatment, but currently he is appropriate for engagement as an outpatient. I attempted to build some small rapport with Gabo, as I work with the integration program that he could access as an outpatient. Pt agrees for me to mention [facility] referral to Dr. Sullivan, who I am cc?ing on this note. DIAGNOSES: Unspecified mood disorder Rule out bipolar 1 disorder RECOMMENDATIONS: - No change to dispo plan from a psychiatric perspective - Schedule f/u with Dr. Sullivan upon discharge, who can facilitate referral to [facility] program - Consider referral to [facility] if patient is willing Thank you for involving me in this patient's care. I will plan to sign off at this time. Please contact me with questions or concerns at [phone]. Time Spent With Patient Time with patient: 25 - 35 minutes
--- NOTE | 2019-03-13 17:36 | OT.IP.TRT ---
Current Diagnoses Displaced intertrochanteric fracture of right femur, initial encounter for closed fracture (03/09/19) Surgery Performed Operation Date: 03/10/19 17:30 Actual Procedures p Intramedullary Nailing Femur(Right) - Robert Arrington MD Occupational Therapy Treatment Note M2 OT-IP Current Condition Start: 03/11/19 14:34 Freq: Status: Active Protocol: Document 03/11/19 14:34 CGR (Rec: 03/11/19 15:11 CGR [email or web address]) Occupational Therapy Current Condition Current Condition Evaluation Date 03/11/19 Treatment Diagnosis R femur fracture Diagnosis Onset Date 03/10/19 Weight Bearing Status Allowed Weight Bearing Amount (enter % Toe touch weight bearing or #) (%) M3 OT- IP Subjective and Pain Start: 03/11/19 14:34 Freq: Status: Active Protocol: Document 03/13/19 16:15 CCC (Rec: 03/13/19 13:01 CCC [email or web address]) OT- Subjective Occupational Therapy Visit Type Type Treatment Note Visit Start Time 11:55 Visit Stop Time 12:35 Total Visit Minutes 75 Notes Pt also seen in PM with PT for bed mobility needs [id number]. Occupational Therapy Visit Comments Patient Comments Pt after encouragement willing to get up. OT Pain Assessment Pain When Pain Assessed At Rest Pain Present Pain Present Pain Reported Location Right Thigh Intensity 2 Scale Used Numeric (1 - 10) M4 OT- IP ADL's Start: 03/11/19 14:34 Freq: Status: Active Protocol: Document 03/13/19 16:15 CCC (Rec: 03/13/19 13:01 CCC [email or web address]) OT IER-Kyyr-[facility] General Evaluation Self-Feeding Ability Independent OT ADL-Dressing General Eval Lower Body Dressing Ability Maximum Assistance Areas Needing Assistance Socks Comments OT Dressing Comments ABle to show pt LB AED for LB dressing needs, pt able to do sock aid and clinical laboratory manager to monica/ doff left sock, at this time dependent for right sock as having trouble to lift up rigth leg and foot. OT ADL-Toileting General Evaluation Toileting Ability Standby Assistance Minimal Assistance Comments OT Toileting Comments SBA as pt heavily relies on grab bar and BSC for otherside to help lower himself down. Educated to pt that leaning to left side would be easier to wipe , and inaddition to have urinal and BSC/RTS with handles would be helpful at this time. OT ADL-Bathing Comments OT Bathing Comments Not performed on this date. Pt will benefit from tub bench at this time. M5 OT- IP IADL's Start: 03/11/19 14:34 Freq: Status: Active Protocol: Document 03/11/19 14:34 CGR (Rec: 03/11/19 15:11 CGR [email or web address]) OT-Instrumental Activities of Daily Living Deficits IADL Deficits Identified No Deficits Home Safety Awareness Awareness of Need for Assistance at Home Good Awareness Ability to Problem Solve Emergency Able to Problem Solve Situations Medication Management Medication Management No Deficits Identified Money Management Money Management No Deficits Identified M6 OT- IP Functional Cognition Start: 03/11/19 14:34 Freq: Status: Active Protocol: Document 03/13/19 16:15 [facility] (Rec: 03/13/19 13:01 [facility] [email or web address]) Cognitive Factors Limiting Selfcare Function Cognitive Ability Level of Alertness Alert Patient Orientation Name Year Place Situation Attention Span Ability Capable of Focused Attention Capable of Sustained Attention Ability to Follow Commands Able to Follow One Step Commands Memory Description No Deficits Noted Safety Awareness Underestimates Need for Assistance Problem Solving Ability No deficits Noted Executive Function Ability No Deficits Noted Abstract Thinking Ability No Deficits Noted Cognitive Comments Cognitive Assessment Comments Pt needing occasional reminders for safety, TTWB, pt able to do a good job to keep most of his weight on the left foot and heavily relies on his BUE on FWW while up. Pt states prior that he was so independent and now very enlightening that he has to slow down , thinks things through first, and realizing that he will need assist. M7 OT- IP Mobility and Balance Start: 03/11/19 14:34 Freq: Status: Active Protocol: Document 03/13/19 16:15 [facility] (Rec: 03/13/19 13:01 [facility] [email or web address]) OT- Bed Mobility Assessment Supine to Sit Supine to Sit Assist Minimal Assistance Sit to Supine Sit to Supine Assist Minimal Assistance OT-Transfer Assessment Sit to and From Stand Sit to and from Stand Contact Guard Assistance Minimal Assistance Transfers Transfer Ability Contact Guard Assistance Minimal Assistance Technique Transfer Destination Chair Toilet Devices Transfer Assistive Devices Gait Belt Front Wheeled Walker Comments Mobility Comments Pt still having trouble to move RLE. SHELL to stand from lower surfaces. Pt not able to move RLE for bed mobility , even with trial on use of gait belt to assist , pt needing physical assist. To trial cane next time. Trial of leg home coordinator in PM and pt able to lift his leg up to the bed with CGA/SHELL. OT- Balance Assessment Sitting Balance and Reactions Static Sitting Balance Ability Normal Dynamic Sitting Balance Ability Normal Standing Balance and Reactions Static Standing Balance Ability Good M8 OT- IP Objective Assessments Start: 03/11/19 14:34 Freq: Status: Active Protocol: Document 03/11/19 14:34 CGR (Rec: 03/11/19 15:11 CGR [email or web address]) OT Gross Range of Motion Upper Extremity Range of Motion Assessment Within Functional Limits OT Strength Upper Extremity Strength Assessment Within Functional Limits Comments Strength Comments 5/5 throughout OT- Coordination Assessment Upper Extremity Finger to Nose Test Within Functional Limits Finger Tapping Test Within Functional Limits OT-Muscle Tone Assessment Muscle Tone WNL Yes OT Sensation Assessment Comments Summary Comments Pt states typical sensation to BUE Edema Edema Present Edema Comments significant edema noted to the RLE M9 OT- IP Assessment and Plan Start: 03/11/19 14:34 Freq: Status: Active Protocol: Document 03/13/19 16:15 CCC (Rec: 03/13/19 13:01 CCC [email or web address]) OT Summary Assessment and Plan Potential Rehabilitation Potential Excellent Analytic Complexity at Evaluation Moderate Summary OT Impairments Pain Range of Motion Balance Functional Mobility Grooming Dressing Toileting Bathing Toilet Transfers Shower Transfers Progress Towards Goals Progressing Toward Goals Assessment Summary Pt doing much better today and able to get to the bathroom with FWW and assist. Pt still needing MAX a for LB dressing needs due to pain and difficulty to move RLE. Pt would benefit from short skilled rehab stay. Pt able to better mobilize in PM and if able to get suggested equipment needs of tub bench, BSC, LB AED, FWW, and WC pending caregiver training may be able to go home with assist. Goals Grooming Goal Independent Dressing Goal Independent Girls Swimming Coach Sock Aid Toileting Goal Independent Bathing Goal Standby Assistance Toilet Transfer Goal Independent Shower Transfer Goal Independent Days to Meet Goals 4 Frequency of Treatment Frequency Of Treatment Once a Day Treatment Plan OT Treatment Plan ADL Training Functional Mobility Therapeutic Exercises Patient/Family Education Discharge Planning Other Treatment Recommendations and Next shower Treatment Focus Discharge Recommendations OT Discharge Recommendations SNF Rehab Other Discharge Recommendations d/t a complicated living situation and pt currently needing significant assist for ADLs, recommendation at this time is for SNF. Home Equipment Needs If pt going home will need caregiver training, tub bench, BSC/rts with handles, Hip kit , FWW , wc for longer distances
--- NOTE | 2019-03-13 17:38 | P.CONS_ITS ---
History of Present Illness Date Patient Seen: 03/13/19 Time Patient Seen: 12:40 Chief complaint: states right femure/upper leg pain from fall Reason for consult: Guidance for dispo Requesting provider: Katya Crandall Narrative: CC: ?I?m ok? HOSPITAL COURSE: 28M admitted 03/10/19 with femur fracture after fall skateboarding, now s/p intramedullary fixation on 03/10/19. Cooperative during stay, considering dispo, team has question of previous psychiatric symptoms & request evaluation for treatment recommendations and appropriate services upon discharge. Medically, running low grade fever at times, BP slightly elevate at times (likely expected with pain). No psychotropic medications. Receiving prn pain medications; prn for lorazepam & zolpidem available but no record of taking. Labwork largely WNL. COLLATERAL FROM STAFF: Cooperative with care, no safety concerns, no clear delusions or paranoia in the hospital. INTERVIEW: ?I?m ok? pt reports not having much of a fall for this big of an injury. He reports pain is ok, medications help but don?t make him feel loopy. Denies feeling depressed, mentions recent breakup with his girlfriend. Denies SI currently or in the past. Denies hallucinations currently, denies feeling like his mind is playing tricks on him. Mentions growing up in a cult, referencing his fang, and not wanting to talk to a pl sql developer that stopped by. Feels safe if he were to return home following d/c (currently staying with parents after living with GF x5y). States that he trusts his mom & sisters to help with things, given his injury. Reports feeling depressed in the past, denies feeling depressed currently. States that there have been times where he goes 36 hr without sleeping and then sleeps for 36 hr. Mentions going to a counselor in the past ?but it was weird?. COLLATERAL Info: Several affdavits included with pt?s records, from therapist, sister, and partner dated from late January ? mid-February 2019. These raise concerns for delusions & paranoia, and significant changes in behavior. Sister?s affidavit mentions seeking involuntary fpc. [facility] Social History (Updated 03/09/19 @ 23:36 by Billy Chavez DO) marital status: unmarried,single household members: family lives independently: Yes caregiver/support person: No housing: house Smoking Status: Current every day smoker alcohol intake: current Social History (Updated 03/09/19 @ 23:36 by Billy Chavez DO) marital status: unmarried,single household members: family lives independently: Yes caregiver/support person: No housing: house Smoking Status: Current every day smoker alcohol intake: current Comment: PAST PSYCHIATRIC HISTORY: Mentions h/o depression; denies h/o SA, no known past medication trials. Unsure if there is any FH of bipolar disorder, wonders about his mother?s mental health SUBSTANCE USE HISTORY: Frequent marijuana use FAMILY HISTORY: no known h/o bipolar disorder SOCIAL HISTORY: recent breakup with GF, currently residing with parents, not m arried DEVELOPMENTAL HISTORY: grew up locally, 1 of 9 children; raised in [place] & describes feeling like he was in a cult PCP: Laurie SIGNIFICANT MEDICAL HISTORY: no chronic medications or medical issues Meds Home Medications Medication Instructions Recorded Confirmed Type No Known Home Medications 03/10/19 03/10/19 History Allergies Allergy/AdvReac Type Severity Reaction Status Date / Time No Known Drug Allergies Allergy Verified 03/09/19 23:42 Review of Systems Constitutional Constitutional: Reports difficulty sleeping Eyes Eyes: Denies change in vision ENT Ears, Nose, Mouth, and Throat: No abnormal hearing and No dizziness Cardiovascular Cardiovascular: Denies shortness of breath Respiratory Respiratory: Denies dyspnea Gastrointestinal Gastrointestinal: Denies abdominal pain Musculoskeletal Comments: +leg pain Neurologic Neurologic: Denies abnormal hearing, Denies abnormal speech, Denies confusion and Denies dizziness Psychiatric Psychiatric: Reports as per HPI, Denies anxiety, Denies confusion, Denies garcía tory hallucinations and Denies hopelessness Hematologic/Lymphatic Hematologic/Lymphatic: Reports system reviewed and no additional complaints, except as documented Allergic/Immunologic Allergic/Immunologic: Reports system reviewed and no additional complaints, except as documented Exam Vital Signs (past 8 hours): - 03/13/19 12:00 03/13/19 15:30 Temperature 98.2 F 99.8 F H Pulse Rate 86 99 H Respiratory Rate 16 18 Blood Pressure 131/62 134/79 Pulse Oximetry 99 100 Oxygen Delivery Method Room Air Oxygen Flow Rate 0 Narrative Exam Narrative: MENTAL STATUS EXAM Appearance: groomed with short hair, wearing hospital garb, casually dressed, appears stated age Behavior: Calm, cooperative, good eye contact, no psychomotor agitation or slowing, no tremor or involuntary movements observed; sitting in chair Gait: sitting, not observed Speech: Normal rate, volume, and sendy Mood: ok Affect: Congruent with content, euthymic, normal range and reactivity Thought Process: Linear, logical, goal-directed Thought Content: Denies suicidal ideation, no evidence of HI, denies hallucinations, no evidence of paranoia or delusions Attention: Attentive to interview Orientation: Oriented to person place and time Memory: Intact for interview, not formally tested Insight: Fair-limited Judgment: Fair Objective Labs Result Diagrams: 03/12/19 07:25 03/10/19 00:30 Assessment & Plan Assessment & Plan narrative: ASSESSMENT: Gabo Tamez is a 28-year-old male, single, admitted to on 03/10/19 with femoral fracture now s/u intramedullary nailing. Psychiatry consult requested for help with discharge planning, given affidavits from family regarding mental health. On my exam today, Gabo is not displaying active psychiatric symptoms, and has been cooperative & appropriate with his medical care. I do not have active concerns about psychiatric symptoms interfering with his immediate medical care or impacting his discharge from the hospital, I feel he is appropriate for any discharge felt appropriate by his surgical team. His family?s affidavits raise serious concern for recent manic symptoms, and Gabo endorses history of depression. Given his lack of current symptoms, I feel the best plan is to try & engage him in any treatment he is willing to accept which could help create rapport for later treatment. This may be possible through his primary care clinic, with behavioral health integration program (BHIP). Based on family?s affidavits, it appears he has not pursued care in the past. Certainly when present manic or psychotic symptoms can create emergent need for treatment, but currently he is appropriate for engagement as an outpatient. I attempted to build some small rapport with Gaob, as I work with the integration program that he could access as an outpatient. Pt agrees for me to mention [facility] referral to Dr. Sullivan, who I am cc?ing on this note. DIAGNOSES: Unspecified mood disorder Rule out bipolar 1 disorder RECOMMENDATIONS: - No change to dispo plan from a psychiatric perspective - Schedule f/u with Dr. Sullivan upon discharge, who can facilitate referral to BHIP program - Consider referral to [facility] if patient is willing Thank you for involving me in this patient's care. I will plan to sign off at this time. Please contact me with questions or concerns at [phone]. Time Spent With Patient Time with patient: 25 - 35 minutes
--- NOTE | 2019-03-13 17:39 | OT.IP.TRT ---
Current Diagnoses Displaced intertrochanteric fracture of right femur, initial encounter for closed fracture (03/09/19) Surgery Performed Operation Date: 03/10/19 17:30 Actual Procedures p Intramedullary Nailing Femur(Right) - Robert Arrington MD Occupational Therapy Treatment Note M2 OT-IP Current Condition Start: 03/11/19 14:34 Freq: Status: Active Protocol: Document 03/11/19 14:34 CGR (Rec: 03/11/19 15:11 CGR [email or web address]) Occupational Therapy Current Condition Current Condition Evaluation Date 03/11/19 Treatment Diagnosis R femur fracture Diagnosis Onset Date 03/10/19 Weight Bearing Status Allowed Weight Bearing Amount (enter % Toe touch weight bearing or #) (%) M3 OT- IP Subjective and Pain Start: 03/11/19 14:34 Freq: Status: Active Protocol: Document 03/13/19 16:15 CCC (Rec: 03/13/19 13:01 CCC [email or web address]) OT- Subjective Occupational Therapy Visit Type Type Treatment Note Visit Start Time 11:55 Visit Stop Time 12:35 Total Visit Minutes 75 Notes Pt also seen in PM with PT for bed mobility needs [id number]. Occupational Therapy Visit Comments Patient Comments Pt after encouragement willing to get up. OT Pain Assessment Pain When Pain Assessed At Rest Pain Present Pain Present Pain Reported Location Right Thigh Intensity 2 Scale Used Numeric (1 - 10) M4 OT- IP ADL's Start: 03/11/19 14:34 Freq: Status: Active Protocol: Document 03/13/19 16:15 CCC (Rec: 03/13/19 13:01 CCC [email or web address]) OT [id number] General Evaluation Self-Feeding Ability Independent OT ADL-Dressing General Eval Lower Body Dressing Ability Maximum Assistance Areas Needing Assistance Socks Comments OT Dressing Comments ABle to show pt LB AED for LB dressing needs, pt able to do sock aid and director radio to monica/ doff left sock, at this time dependent for right sock as having trouble to lift up rigth leg and foot. OT ADL-Toileting General Evaluation Toileting Ability Standby Assistance Minimal Assistance Comments OT Toileting Comments SBA as pt heavily relies on grab bar and BSC for otherside to help lower himself down. Educated to pt that leaning to left side would be easier to wipe , and inaddition to have urinal and BSC/RTS with handles would be helpful at this time. OT ADL-Bathing Comments OT Bathing Comments Not performed on this date. Pt will benefit from tub bench at this time. M5 OT- IP IADL's Start: 03/11/19 14:34 Freq: Status: Active Protocol: Document 03/11/19 14:34 CGR (Rec: 03/11/19 15:11 CGR [email or web address]) OT-Instrumental Activities of Daily Living Deficits IADL Deficits Identified No Deficits Home Safety Awareness Awareness of Need for Assistance at Home Good Awareness Ability to Problem Solve Emergency Able to Problem Solve Situations Medication Management Medication Management No Deficits Identified Money Management Money Management No Deficits Identified M6 OT- IP Functional Cognition Start: 03/11/19 14:34 Freq: Status: Active Protocol: Document 03/13/19 16:15 [facility] (Rec: 03/13/19 13:01 [facility] [email or web address]) Cognitive Factors Limiting Selfcare Function Cognitive Ability Level of Alertness Alert Patient Orientation Name Year Place Situation Attention Span Ability Capable of Focused Attention Capable of Sustained Attention Ability to Follow Commands Able to Follow One Step Commands Memory Description No Deficits Noted Safety Awareness Underestimates Need for Assistance Problem Solving Ability No deficits Noted Executive Function Ability No Deficits Noted Abstract Thinking Ability No Deficits Noted Cognitive Comments Cognitive Assessment Comments Pt needing occasional reminders for safety, TTWB, pt able to do a good job to keep most of his weight on the left foot and heavily relies on his BUE on FWW while up. Pt states prior that he was so independent and now very enlightening that he has to slow down , thinks things through first, and realizing that he will need assist. M7 OT- IP Mobility and Balance Start: 03/11/19 14:34 Freq: Status: Active Protocol: Document 03/13/19 16:15 [facility] (Rec: 03/13/19 13:01 [facility] [email or web address]) OT- Bed Mobility Assessment Supine to Sit Supine to Sit Assist Minimal Assistance Sit to Supine Sit to Supine Assist Minimal Assistance OT-Transfer Assessment Sit to and From Stand Sit to and from Stand Contact Guard Assistance Minimal Assistance Transfers Transfer Ability Contact Guard Assistance Minimal Assistance Technique Transfer Destination Chair Toilet Devices Transfer Assistive Devices Gait Belt Front Wheeled Walker Comments Mobility Comments Pt still having trouble to move RLE. SHELL to stand from lower surfaces. Pt not able to move RLE for bed mobility , even with trial on use of gait belt to assist , pt needing physical assist. To trial cane next time. [place] of leg lift in PM and pt able to lift his leg up to the bed with CGA/SHELL. OT- Balance Assessment Sitting Balance and Reactions Static Sitting Balance Ability Normal Dynamic Sitting Balance Ability Normal Standing Balance and Reactions Static Standing Balance Ability Good M8 OT- IP Objective Assessments Start: 03/11/19 14:34 Freq: Status: Active Protocol: Document 03/11/19 14:34 CGR (Rec: 03/11/19 15:11 CGR [email or web address]) OT Gross Range of Motion Upper Extremity Range of Motion Assessment Within Functional Limits OT Strength Upper Extremity Strength Assessment Within Functional Limits Comments Strength Comments 5/5 throughout OT- Coordination Assessment Upper Extremity Finger to Nose Test Within Functional Limits Finger Tapping Test Within Functional Limits OT-Muscle Tone Assessment Muscle Tone WNL Yes OT Sensation Assessment Comments Summary Comments Pt states typical sensation to BUE Edema Edema Present Edema Comments significant edema noted to the RLE M9 OT- IP Assessment and Plan Start: 03/11/19 14:34 Freq: Status: Active Protocol: Document 03/13/19 16:15 CCC (Rec: 03/13/19 13:01 CCC [email or web address]) OT Summary Assessment and Plan Potential Rehabilitation Potential Excellent Analytic Complexity at Evaluation Moderate Summary OT Impairments Pain Range of Motion Balance Functional Mobility Grooming Dressing Toileting Bathing Toilet Transfers Shower Transfers Progress Towards Goals Progressing Toward Goals Assessment Summary Pt doing much better today and able to get to the bathroom with FWW and assist. Pt still needing MAX a for LB dressing needs due to pain and difficulty to move RLE. Pt would benefit from short skilled rehab stay. Pt able to better mobilize in PM and if able to get suggested equipment needs of tub bench, BSC, LB AED, FWW, and WC pending carergiver training may be able to go home with assist. Goals Grooming Goal Independent Dressing Goal Independent Grade Setter Sock Aid Toileting Goal Independent Bathing Goal Standby Assistance Toilet Transfer Goal Independent Shower Transfer Goal Independent Days to Meet Goals 4 Frequency of Treatment Frequency Of Treatment Once a Day Treatment Plan OT Treatment Plan ADL Training Functional Mobility Therapeutic Exercises Patient/Family Education Discharge Planning Other Treatment Recommendations and Next shower Treatment Focus Discharge Recommendations OT Discharge Recommendations SNF Rehab Other Discharge Recommendations d/t a complicated living situation and pt currently needing significant assist for ADLs, recommendation at this time is for SNF. Home Equipment Needs If pt going home will need caregiver training, tub bench, BSC/rts with handles, Hip kit , FWW , wc for longer distances
[2019-03-14] VITALS (7 sets, daily range): BP systolic 117–149; BP diastolic 59–74; PULSE 78–105; RESP 16–20; TEMP 36.4–37.9; O2SAT 98–100
[2019-03-14] MEDS: ACETAMINOPHEN 325 MG TABLET 975 MG PO ×2 (01:32→08:59)
[2019-03-14] MEDS: OXYCODONE IR 5 MG TABLET PO ×7 (01:32→22:24)
[2019-03-14] MEDS: SODIUM CHLORIDE 0.9% FLUSH 10 ML IV ×2 (08:59→21:35)
[2019-03-14] MEDS: DOCUSATE 100 MG CAPSULE PO ×2 (09:00→21:26)
[2019-03-14] MEDS: ENOXAPARIN 40 MG/0.4 ML SYRINGE SUBCUT (09:00)
--- NOTE | 2019-03-14 09:20 | PM.PNPO.1 ---
Subjective Date Patient Seen: 03/14/19 Time Patient Seen: 09:20 Interval history: Hospital day 5, postop day 4 following right intratrochanteric fracture with IM nail. He is toe-touch weight-bearing right leg. He has had limited activity with PT/OT. Needing 2 person assist. Both PT and OT are recommending SNF. Patient's father is a PT. Pain controlled with oxycodone. He did have psych evaluation done yesterday with diagnosis of schizoaffective disorder and felt to be stable for discharge. Exam Vital Signs (past 8 hours): - 03/14/19 04:18 03/14/19 07:42 03/14/19 08:59 Temperature 98.6 F 100.3 F H 100.2 F H Pulse Rate 88 97 H Respiratory Rate 16 18 Blood Pressure 149/61 H 117/67 Pulse Oximetry 98 99 03/14/19 09:02 Temperature 100.2 F H Pulse Rate Respiratory Rate Blood Pressure Pulse Oximetry Oxygen Delivery Method Room Air Oxygen Flow Rate 0 Narrative Exam Narrative: Alert, oriented no acute distress lying in bed. Right leg. Dressings to right lateral thigh are dry with small areas of shadowing. No signs of infection or inflammation. Mild swelling to calf. Calf is soft and nontender. Good pulses and sensation to distal leg. Objective Labs Result Diagrams: 03/12/19 07:25 03/10/19 00:30 Assessment & Plan Post-op Postoperative Procedures Operation Date: 03/10/19 17:30 Actual Procedures Side Surgeon p Intramedullary Nailing Femur Right Robert Arrington MD Plan: Patient is to be toe-touch weight-bearing to the right leg x6 weeks. He is still needing 2 person assist. Anticipate discharge to SNF possibly tomorrow depending on authorization by his insurance. Quality VTE Deep Vein Thrombosis/Pulmonary Embolism Present on Admission: No
[2019-03-14 11:22] LABS: Add Manual Diff / Slide Review NO; Basophils Absolute Auto 0 /uL (0-100); Basophils Percent Auto 0.3 % (0-2); Eosinophils Absolute Auto 0 /uL (0-450); Eosinophils Percent Auto 0.2 % (2-4); Hematocrit 21.1 % (41-53); Hemoglobin 7.3 g/dL (13.5-17.5); Lymphocytes Absolute Auto 1200 /uL (1100-4500); Lymphocytes Percent Auto 15.2 % (25-40); Mean Corpuscular HGB Conc 34.9 % (30-36); Mean Corpuscular Volume 88.8 fL (80-100); Monocytes Absolute Auto 700 /uL (0-900); Monocytes Percent Auto 8.9 % (3-14); Neutrophils Absolute Auto 5900 /uL (1500-7000); Neutrophils Percent Auto 75.4 % (50-75); Platelet Count 225 X10^3/uL (150-400); Red Blood Cell Count 2.37 X10^6/uL (4.5-5.9); Red Cell Distribution Width 12.5 % (11.6-14.8); White Blood Cell Count 7.8 X10^3/uL (4.5-11.0)
--- NOTE | 2019-03-14 11:45 | OT.IP.TRT ---
Current Diagnoses Displaced intertrochanteric fracture of right femur, initial encounter for closed fracture (03/09/19) Surgery Performed Operation Date: 03/10/19 17:30 Actual Procedures p Intramedullary Nailing Femur(Right) - Robert Arrington MD Occupational Therapy Treatment Note M2 OT-IP Current Condition Start: 03/11/19 14:34 Freq: Status: Active Protocol: Document 03/11/19 14:34 CGR (Rec: 03/11/19 15:11 CGR [email or web address]) Occupational Therapy Current Condition Current Condition Evaluation Date 03/11/19 Treatment Diagnosis R femur fracture Diagnosis Onset Date 03/10/19 Weight Bearing Status Allowed Weight Bearing Amount (enter % Toe touch weight bearing or #) (%) M3 OT- IP Subjective and Pain Start: 03/11/19 14:34 Freq: Status: Active Protocol: Document 03/14/19 11:40 CCC (Rec: 03/14/19 11:45 CCC [email or web address]) OT- Subjective Occupational Therapy Visit Type Type Administrative Note Notes Pt has 7.3 Hgb, 21.1 Hct therefore nursing to call physician. At this time hold pt from OT.
--- NOTE | 2019-03-14 12:14 | PC.NURSE ---
Day shift: Dr Owens made aware of Pt's new H/H of 7.3/21.1. MD does not want to transfuse Pt as he is asymptomatic and VS stable. also made aware that PT/OT are not going to work with Pt today due to low H/H. Will continue to monitor Pt. 2nd dressing from the top has shadow drainage present.
--- NOTE | 2019-03-14 16:54 | CM.DANOTE ---
DCP/Continued: Patient seen by Dr. Ramos on 03-13-18. PAINT TECHNICIAN reviewed note today. Per Dr. Ramos patient cleared from mental health standpoint to d/c either home or SNF. Outpatient follow up recommended by Dr. Ramos (see her note for detail). Met with patient, Mother/Morena and sister at bedside explained PAINT TECHNICIAN role. Discussed d/c planning with patient and he reports that he would like to go home. Patient declining SNF today. Spoke with RN that reports therapy held today due to patient's labs and possible need for hospitalist consult. Therefore, patient set back a day for rehabilitation. Initially, patient somewhat agreeable to SNF and several referrals were faxed to [facility], [facility], [facility], and [place] facilities. Currently all SNF's have declined either because of insurance or mental health evaluation? Still waiting on [facility]. Patient and family aware that SNF placement difficult. However, patient reports that he wants to go home. Patient's Mother/Morena unsure if this is such a good idea. Patient started to argue with Mother in the room about his choice to come home. Per previous notes, there is history with patient and his parents not getting along. Per Mother, patient kicked out of the house a while back. Encouraged patient and Mother to discuss d/c plan with Father present as well. During conversation, patient referred to his Father has being okay with him coming home at time of d/c. Meeting with family, patient, and PAINT TECHNICIAN scheduled tomorrow for 1:00pm to confirm/discuss d/c plan. Mother aware if patient does go to there residence HH can be ordered. Left F2F on record for MD to sign. Jodee from OT also plans to meet with family tomorrow at around 12:45pm to go over safe strategies at home and recommendations. P: PAINT TECHNICIAN to coordinate d/c plan with patient and family. Meeting scheduled for 1:00pm. Patient currently refusing SNF and no SNF has accepted. ANDI Mckoy
[2019-03-14] MEDS: HYDROMORPHONE 0.5 MG INJ 0.2 MG IV (18:06)
--- NOTE | 2019-03-14 19:50 | PC.NURSE ---
RLE edematous, non-pitting with PPP, slight numbness but c/m/s present; ice applied to right thigh; drsgs X3 c/d/i; pt calm, cooperative and appropriate; PO pain meds for mild-moderated pain; IV pain med for breakthrough pain r/t ambulation to bathroom; Lg BM X1; mild dizziness s/p elimination, but balance intact; toe-touch weight bearing with fww and sba; LS clear, IS 4000; O2 DV=861%
[2019-03-15] VITALS (9 sets, daily range): BP systolic 131–148; BP diastolic 59–88; PULSE 95–104; RESP 12–18; TEMP 37.2–37.7; O2SAT 98–100
[2019-03-15] MEDS: ACETAMINOPHEN 325 MG TABLET 975 MG PO (00:17)
--- NOTE | 2019-03-15 00:22 | PC.NURSE ---
Shift note: Received pt from evening shift. Pt reclined in bed at time of assessment. Assessment notable for post op incision to right lower extremity that has non pitting edema from groin to mid calf, 2nd proximal coversite dressing saturated with serosang drainage and changed during assessment, incision was well approximated with sutures with bruising around incision, serosang drainage to other 3 coversites but did not need to be changed, pt tolerated well. VS notable for hypertension 148/75, tachycardia of 103, and a temp of 99.7, medicated with 975mg PO Tylenol per MAR for increased temp and pain of 4/10 numeric. Pt O2 sat of 99% on RA with no other complaints at this time. Bed alarm activated, call light in reach, pt is a high fall risk d/t fall prompting hip fracture and weakness associated with transferring.
[2019-03-15] MEDS: OXYCODONE IR 5 MG TABLET PO ×2 (03:40→08:22)
[2019-03-15 07:02] LABS: Hematocrit 21.3 % (41-53); Hemoglobin 7.5 g/dL (13.5-17.5)
[2019-03-15] MEDS: SODIUM CHLORIDE 0.9% FLUSH 10 ML IV ×2 (08:25→21:35)
[2019-03-15] MEDS: ENOXAPARIN 40 MG/0.4 ML SYRINGE SUBCUT (08:26)
[2019-03-15] MEDS: DOCUSATE 100 MG CAPSULE PO ×2 (08:26→21:30)
--- NOTE | 2019-03-15 11:10 | PT.IPTN ---
Current Diagnoses Acute posthemorrhagic anemia (03/09/19) Displaced intertrochanteric fracture of right femur, initial encounter for closed fracture (03/09/19) Surgery Performed Operation Date: 03/10/19 17:30 Actual Procedures p Intramedullary Nailing Femur(Right) - Robert Arrington MD Physical Therapy Treatment Note M2 PT-IP Current Condition Start: 03/11/19 12:44 Freq: NEEDED Status: Active Protocol: Document 03/11/19 10:13 AB (Rec: 03/11/19 12:58 AB [id number]) Physical Therapy Current Condition Current Condition Evaluation Date 03/11/19 Treatment Diagnosis s/p R trochanteric/femoral fx s/p intramedullary fixation; diff in walking Onset Date 03/09/19 Weight Bearing Status Weight Bearing Status Touch Down Weight Bearing Allowed Weight Bearing Amount (enter % RLE TTWB or #) (%) M3 PT-IP Subjective Start: 03/11/19 12:44 Freq: NEEDED Status: Active Protocol: Document 03/15/19 11:10 AB (Rec: 03/15/19 13:43 AB [id number]) Subjective Physical Therapy Visit Type Type Treatment Note Visit Start Time 11:10 Visit Stop Time 11:50 Total Visit Minutes 40 Number of FEATHER STITCHER Visits 0 Physical Therapy Visit Comments Patient Comments pt agreeable to do PT Therapy Pain Assessment Pain When Pain Assessed At Rest Pain Present Pain Present Pain Reported Location Right Thigh Intensity 4 Scale Used increased to 8/10 with mobility Pain Behaviors Guarding Pain Management Techniques Apply Cold Re-positioning Timing of Activity with Medications M4 PT-IP Mobility and Gait Start: 03/11/19 12:44 Freq: NEEDED Status: Active Protocol: Document 03/15/19 11:10 AB (Rec: 03/15/19 13:43 AB [id number]) PT-Transfer Assessment Sit to and From Stand Sit to and from Stand Standby Assistance Equipment Transfer Assistive Device Gait Belt Axillary Crutches Orthotic/Prosthetic Devices or Brace: No Transfer Ability Level of Assist Contact Guard Assistance 1 Person Assistance Use of Upper Extremities Comments Mobility Comments pt with Hgb 7.5 Hct 21.3 but refused blood transfusion at this time. pt educated on restrictions and limitations to PT interventions due to low H&H. Pt understood. Monitored BP and symtoms during tx session. prior to mobility: BP: 146/66 HR 96 Gait Assessment Gait Gait Assistance Required: Contact Guard Assist Distance (Feet) 12 Able to Maintain Weight Bearing Status No During Gait Assistive Devices Assistive Device Gait Belt Axillary Crutches Orthotic/Prosthetic Devices or Brace: No Gait Deviations General Gait Pattern Decreased Stride Length Decreased Feet Clearance Step-to Gait Factors Limiting Gait Function Factors Limiting Gait Function Decreased Activity Tolerance Decreased Strength Limited Range of Motion Pain Poor Balance Comments Gait Comments Gait training conducted using axillary crutches: educated pt on how to use axillary crutches. completed sit to stand CGA. pt was able to ambulate using crutches CGA ~ 12 ft. pt has difficulty keeping forefoot/heels off the floor but stated that he is not putting much weight. pt tends to drag RLE during ambulation and unable to lift it off the floor during forward propulsion. pt c/o dizziness and increase pain. pt has to sit on the w/c and assisted towards the chair. BP checked: 150/78 HR 148 bpm . pt completed stand step transfer from w/c to chair using FWW SBA. positioned pt on the chair. ice pack provided. call light and table placed within reach. informed pt regarding concerns and equipement needs for safe d/c home. M5 PT-IP Objective Assessments Start: 03/11/19 12:44 Freq: NEEDED Status: Active Protocol: Document 03/11/19 10:13 AB (Rec: 03/11/19 12:58 AB [id number]) Orientation Orientation/Cognition Level of Alertness Alert Safety Awareness Understands Safety Issues Memory Description No Deficits Noted Gross Range of Motion Lower Extremity ROM Assessment Right Impaired Impairments RLE tightness and pain inhibiting movement Strength Lower Extremity Strength Assessment Right Impaired Hip 2+/5 Knee 3-/5 Coordination Assessment Gross Coordination Gross Coordination WNL Sensation Assessment Sensation Gross Sensation WNL Muscle Tone Muscle Tone WNL Yes M6 PT-IP Treatment Start: 03/11/19 12:44 Freq: NEEDED Status: Active Protocol: Document 03/15/19 11:10 AB (Rec: 03/15/19 13:43 AB [id number]) Physical Therapy Treatment Education Education Provided Weight Bearing Status Safety M7 PT-IP Assessment and Plan Start: 03/11/19 12:44 Freq: NEEDED Status: Active Protocol: Document 03/15/19 11:10 AB (Rec: 03/15/19 13:43 AB [id number]) PT Summary Assessment and Plan Potential Rehabilitation Potential Fair Summary Impairments Pain ROM Strength Balance Coordination Sensation Tone Cognition Bed Mobility Transfers Gait Activity Tolerance Progress Towards Goals Slow Progress due to Medical Issues Assessment Summary pt continues to have difficulty with mobility and unable to safely use crutches. recommending continued use of FWW. Pt will need a ramp to get into the house, will also need a w/c for long distance mobility. Pt initially was asymptomatic despite low H&H but after ~ 12 ft of ambulation c/o dizziness BP 150/78 and HR increased to 148. Goals Bed Mobility Goal Standby Assistance Transfer Goal Contact Guard Assistance Crutches Front Wheeled Walker Gait Goal Contact Guard Assistance Crutches Front Wheel Walker Gait Distance 50 Other Goals up/down 3 steps using crutches SBA Days to Meet Goals 10 Frequency of Treatment Frequency Of Treatment Twice a Day Treatment Plan Physical Therapy Treatment Plan Bed Mobility Training Transfer Training Gait Training Therapeutic Exercise Balance Retraining Post Op Education Discharge Planning Hot or Cold Pack Neuromuscular Re-ed Coordination Retraining Manual Therapy Other Recommendations and Next Treatment ambulation as appropriate Focus Recommendations To Nursing Amount of Assist Needed 1 Person Assist Discharge Recommendations PT Discharge Recommendations SNF Rehab
--- NOTE | 2019-03-15 11:19 | P.PN_ITS ---
Subjective Date Patient Seen: 03/15/19 Time Patient Seen: 11:13 Interval history: Hospital day 6, postop day 5 following right intertrochanteric fracture with IM nail. He is toe-touch weight-bearing to the right leg. Has been out of bed a few times to the bathroom with help. Discussion has been done with the patient and discharge planning regarding home versus SNF. Patient is desiring to go home. He has had limited physical therapy because of his anemia. H&H yesterday was 7.3/21.1. Today 7.5/21.3. There was initial discussion regarding need for blood transfusion patient declined to have this done. Physical therapy apparently has a guideline that they are not able to do anyt funmilayo more than transfer the patient if they are hemoglobin is below 8. Patient has not been orthostatic. Exam Vital Signs (past 8 hours): - 03/15/19 05:47 03/15/19 06:11 03/15/19 07:15 Temperature 99.2 F 99.3 F 99 F Pulse Rate 98 H 99 H Respiratory Rate 18 12 Blood Pressure 141/59 H 137/77 Pulse Oximetry 98 100 Oxygen Delivery Method Room Air Oxygen Flow Rate 0 Narrative Exam Narrative: Alert, oriented no acute distress lying in bed. Right leg. Mild edema noted to I and lower leg or calf soft and nontender. Dressings to lateral right thigh are dry with some shadowing noted to 1 of the dressings. No signs of infection or inflammation. Good pulses and sensation to lower leg. Objective Labs Result Diagrams: 03/15/19 06:45 03/10/19 00:30 Labs: Laboratory Results - last 24 hr 03/14/19 03/15/19 10:35 06:45 WBC 7.8 RBC 2.37 L Hgb 7.3 L 7.5 L Hct 21.1 L 21.3 L MCV 88.8 MCH 31.0 MCHC 34.9 RDW 12.5 Plt Count 225 Neut % (Auto) 75.4 H Lymph % (Auto) 15.2 L [place] % (Auto) 8.9 Eos % (Auto) 0.2 L Baso % (Auto) 0.3 Neut # (Auto) 5900 Lymph # (Auto) 1200 [place] # (Auto) 700 Eos # (Auto) 0 Baso # (Auto) 0 Assessment & Plan Post-op (1) Postoperative anemia due to acute blood loss: Postoperative Procedures Operation Date: 03/10/19 17:30 Actual Procedures Side Surgeon p Intramedullary Nailing Femur Right Robert Arrington MD Plan: Will wait on blood transfusion at this time. Will start patient on iron and vitamin-C. Recheck hemogram in the morning. Quality VTE Deep Vein Thrombosis/Pulmonary Embolism Present on Admission: No
[2019-03-15] MEDS: HYDROCODONE/ACET 5/325 TABLET 2 TAB PO ×3 (12:04→21:34)
--- NOTE | 2019-03-15 13:05 | PT.IPTN ---
Current Diagnoses Acute posthemorrhagic anemia (03/09/19) Displaced intertrochanteric fracture of right femur, initial encounter for closed fracture (03/09/19) Surgery Performed Operation Date: 03/10/19 17:30 Actual Procedures p Intramedullary Nailing Femur(Right) - Robert Arrington MD Physical Therapy Treatment Note M2 PT-IP Current Condition Start: 03/11/19 12:44 Freq: NEEDED Status: Active Protocol: Document 03/11/19 10:13 AB (Rec: 03/11/19 12:58 AB [id number]) Physical Therapy Current Condition Current Condition Evaluation Date 03/11/19 Treatment Diagnosis s/p R trochanteric/femoral fx s/p intramedullary fixation; diff in walking Onset Date 03/09/19 Weight Bearing Status Weight Bearing Status Touch Down Weight Bearing Allowed Weight Bearing Amount (enter % RLE TTWB or #) (%) M3 PT-IP Subjective Start: 03/11/19 12:44 Freq: NEEDED Status: Active Protocol: Document 03/15/19 13:05 AB (Rec: 03/15/19 14:01 AB [id number]) Subjective Physical Therapy Visit Type Type Treatment Note Visit Start Time 13:05 Visit Stop Time 13:25 Total Visit Minutes 20 Number of C IRON WORKER Visits 0 M4 PT-IP Mobility and Gait Start: 03/11/19 12:44 Freq: NEEDED Status: Active Protocol: Document 03/15/19 11:10 AB (Rec: 03/15/19 13:43 AB [id number]) PT-Transfer Assessment Sit to and From Stand Sit to and from Stand Standby Assistance Equipment Transfer Assistive Device Gait Belt Axillary Crutches Orthotic/Prosthetic Devices or Brace: No Transfer Ability Level of Assist Contact Guard Assistance 1 Person Assistance Use of Upper Extremities Comments Mobility Comments pt with Hgb 7.5 Hct 21.3 but refused blood transfusion at this time. pt educated on restrictions and limitations to PT interventions due to low H&H. Pt understood. Monitored BP and symtoms during tx session. prior to mobility: BP: 146/66 HR 96 Gait Assessment Gait Gait Assistance Required: Contact Guard Assist Distance (Feet) 12 Able to Maintain Weight Bearing Status No During Gait Assistive Devices Assistive Device Gait Belt Axillary Crutches Orthotic/Prosthetic Devices or Brace: No Gait Deviations General Gait Pattern Decreased Stride Length Decreased Feet Clearance Step-to Gait Factors Limiting Gait Function Factors Limiting Gait Function Decreased Activity Tolerance Decreased Strength Limited Range of Motion Pain Poor Balance Comments Gait Comments Gait training conducted using axillary crutches: educated pt on how to use axillary crutches. completed sit to stand CGA. pt was able to ambulate using crutches CGA ~ 12 ft. pt has difficulty keeping forefoot/heels off the floor but stated that he is not putting much weight. pt tends to drag RLE during ambulation and unable to lift it off the floor during forward propulsion. pt c/o dizziness and increase pain. pt has to sit on the w/c and assisted towards the chair. BP checked: 150/78 HR 148 bpm . pt completed stand step transfer from w/c to chair using FWW SBA. positioned pt on the chair. ice pack provided. call light and table placed within reach. informed pt regarding concerns and equipement needs for safe d/c home. M5 PT-IP Objective Assessments Start: 03/11/19 12:44 Freq: NEEDED Status: Active Protocol: Document 03/11/19 10:13 AB (Rec: 03/11/19 12:58 AB [id number]) Orientation Orientation/Cognition Level of Alertness Alert Safety Awareness Understands Safety Issues Memory Description No Deficits Noted Gross Range of Motion Lower Extremity ROM Assessment Right Impaired Impairments RLE tightness and pain inhibiting movement Strength Lower Extremity Strength Assessment Right Impaired Hip 2+/5 Knee 3-/5 Coordination Assessment Gross Coordination Gross Coordination WNL Sensation Assessment Sensation Gross Sensation WNL Muscle Tone Muscle Tone WNL Yes M6 PT-IP Treatment Start: 03/11/19 12:44 Freq: NEEDED Status: Active Protocol: Document 03/15/19 13:05 AB (Rec: 03/15/19 13:58 AB [id number]) Physical Therapy Treatment Other Treatments Other Treatment Performed pt and pt's parents present. pillowcase sewer and OT also present. Pt and family educated regarding pt's current mobility level and equipement needs for safe d/c. recommending a ramp, w/c, bedside commode, FWW. provided [facility] [place] number for ramp rental. family is thinking of borrowing things from the [employer]. M7 PT-IP Assessment and Plan Start: 03/11/19 12:44 Freq: NEEDED Status: Active Protocol: Document 03/15/19 13:05 AB (Rec: 03/15/19 13:58 AB [id number]) PT Summary Assessment and Plan Potential Rehabilitation Potential Fair Summary Impairments Pain ROM Strength Balance Coordination Sensation Tone Cognition Bed Mobility Transfers Gait Activity Tolerance Progress Towards Goals Slow Progress due to Medical Issues Assessment Summary pt and family educated on pt's mobility level and equipement needs. pillowcase sewer present during PT session and is aware of recommendations. Goals Bed Mobility Goal Standby Assistance Transfer Goal Contact Guard Assistance Crutches Front Wheeled Walker Gait Goal Contact Guard Assistance Crutches Front Wheel Walker Gait Distance 50 Other Goals up/down 3 steps using crutches SBA Days to Meet Goals 10 Frequency of Treatment Frequency Of Treatment Twice a Day Treatment Plan Physical Therapy Treatment Plan Bed Mobility Training Transfer Training Gait Training Therapeutic Exercise Balance Retraining Post Op Education Discharge Planning Hot or Cold Pack Neuromuscular Re-ed Coordination Retraining Manual Therapy Other Recommendations and Next Treatment ambulation as appropriate Focus Recommendations To Nursing Amount of Assist Needed 1 Person Assist Discharge Recommendations PT Discharge Recommendations SNF Rehab
--- NOTE | 2019-03-15 13:53 | OT.IP.TRT ---
Current Diagnoses Acute posthemorrhagic anemia (03/09/19) Displaced intertrochanteric fracture of right femur, initial encounter for closed fracture (03/09/19) Surgery Performed Operation Date: 03/10/19 17:30 Actual Procedures p Intramedullary Nailing Femur(Right) - Robert Arrington MD Occupational Therapy Treatment Note M2 OT-IP Current Condition Start: 03/11/19 14:34 Freq: Status: Active Protocol: Document 03/11/19 14:34 CGR (Rec: 03/11/19 15:11 CGR [id number]) Occupational Therapy Current Condition Current Condition Evaluation Date 03/11/19 Treatment Diagnosis R femur fracture Diagnosis Onset Date 03/10/19 Weight Bearing Status Allowed Weight Bearing Amount (enter % Toe touch weight bearing or #) (%) M3 OT- IP Subjective and Pain Start: 03/11/19 14:34 Freq: Status: Active Protocol: Document 03/15/19 13:36 CCC (Rec: 03/15/19 13:53 CCC [email or web address]) OT- Subjective Occupational Therapy Visit Type Type Treatment Note Visit Start Time 13:00 Visit Stop Time 13:25 Total Visit Minutes 25 Occupational Therapy Visit Comments Patient Comments Pt, pt's mom and dad, PT and case management present for care conference to talk about equipment needs for ADl's, house set-up and need for assist. M4 OT- IP ADL's Start: 03/11/19 14:34 Freq: Status: Active Protocol: Document 03/15/19 13:36 CCC (Rec: 03/15/19 13:53 CCC [id number]) OT ADL-Dressing Comments OT Dressing Comments Pt issued LB dressing AED of cashier office, sock aid, long handled shoe horn and long handled sponge. Recommended that pt have BSC if going home , downstairs bathroom 1/2 bath with toilet in alcove and would benefit from BSC on top as pt heavily relies on his arms to get up. Pt will have to sponge bath for now as tub/ shower upstairs and not able to do steps at this time. When able to get upstairs will need tub bench Also talked about getting a ramp for the 3 steps to get into the house, information provided for possible rental. OT Summary Assessment and Plan Potential Rehabilitation Potential Good Analytic Complexity at Evaluation Moderate Summary OT Impairments Pain Range of Motion Balance Functional Mobility Grooming Dressing Toileting Bathing Toilet Transfers Shower Transfers Assessment Summary CAre conference with pt, parents, PT and case management to talk about equipment needs and possible help needed. Goals Grooming Goal Independent Dressing Goal Independent Oil Truck Driver Sock Aid Toileting Goal Independent Bathing Goal Standby Assistance Toilet Transfer Goal Independent Shower Transfer Goal Independent Days to Meet Goals 7 Frequency of Treatment Frequency Of Treatment Once a Day Treatment Plan OT Treatment Plan ADL Training Functional Mobility Therapeutic Exercises Patient/Family Education Discharge Planning Other Treatment Recommendations and Next shower Treatment Focus Discharge Recommendations OT Discharge Recommendations Home with Assistance SNF Rehab Other Discharge Recommendations Pt complicated living situation and recommending SNF however pending acceptance, and therefore may be going home to parents home. Home Equipment Needs If pt going home will need caregiver training, tub bench, BSC/rts with handles, Hip kit , FWW , wc for longer distances
[2019-03-15] MEDS: ASCORBIC ACID 500 MG TABLET PO ×2 (14:33→21:30)
[2019-03-15] MEDS: FERROUS GLUCONATE 324 MG TABLET PO ×2 (14:33→21:30)
--- NOTE | 2019-03-15 14:36 | CM.DPC ---
DCP/Continued: Reviewed chart. Spoke with CIARA/Paras Contreras this AM about d/c plan. Patient's hemoglobin down and he has been unable to work with therapy. This has cause delay in mobilization. Therapy agreeable to do some therapy today. Blood ordered if needed. Received call from [facility] and they cannot accept referral. Therefore, asked KRISTIE/Mari to fax [facility]. TRUCK AND TRANSPORT MECHANIC received call back from Marilyn at [facility] and they can accept referral. Patient initially expected to be homebound secondary to slow progress and hip precautions. As scheduled, TRUCK AND TRANSPORT MECHANIC met with patient, Dad, and Mom at approximately 1:00pm today. PT/OT also there and provided there input and current recommendations. Therapy team aware that SNF unable to be located and that patient prefers to go home with his parents. Therapy indicate that this is manageable however, patient will require, walker, w/c, and possibly ramp to get in/out of house for appointments. Therapy agreeable to continue to follow and see patient has much as they can within the guidelines of patient's labs. TRUCK AND TRANSPORT MECHANIC then discussed with patient and parents safe discharge planning. Both parents agreeable for patient to come stay within them upon d/c from [facility]. However, they do have guidelines that they have prepared for patient to review and sign. Patient in agreement to go over with parents later today/evening. Father reports that he is capable to transferring patient home after work on Wednesday11-17-18. Family would like to obtain w/c at [facility] prior to patient discharging from [facility]. TRUCK AND TRANSPORT MECHANIC notified patient and family that patient will remain hospitalized today. Unclear if he will be medically stable tomorrow 03-16-19. Will provide request to Orthopedic team but no guaranties on whether or not patient will be discharged tomorrow. Regardless, family will not be able to pick him up until after 6:00pm. F2F completed but will need to be dated on day of d/c. Also will need to obtain order for HH for PT/OT/RN. Patient does not want [facility]. KRISTIE/Mari aware that order and F2F need to be faxed on day of d/c. First HH visit scheduled tentatively for Wednesday03-18-19. In addition, to the above discussed outpatient mental health counseling and follow up with patient and family. [facility] brochure given and instruction to patient on enrollment. Patient unsure if he truly needs mental health? Patient agreeable to see Dr. Ramos as outpatient. Consent signed by patient for parents to discuss her consult about patient on 03-13-19. Dr. Ramos faxed copy of consent and KRISTIE/Mari scanned consent into EMR. P: Home with parents when stable. Family requesting patient does not discharge before Wednesday03-17-19 because they would like to get w/c and house in order prior to patient's arrival. HH arranged through [facility]. First visit scheduled for Wednesday03-18-19. Patient and parents aware and agreeable to plan. ANDI Mckoy
--- NOTE | 2019-03-15 15:13 | PC.NURSE ---
Received in bed, awake, alert, oriented. VSS. Sp02 >/= 90% on RA. CMS intact to affected extremity. Pain well-controlled on current regimen. After extensive discussion, pt. declined transfusion. OOB to chair with PT assist. Voids per urinal. Taking p.o. without difficulty. Family conference with social service worker and parents.
[2019-03-16] MEDS: HYDROCODONE/ACET 5/325 TABLET 2 TAB PO ×5 (01:11→21:12)
--- NOTE | 2019-03-16 01:57 | PC.NURSE ---
Shift note: Received pt from evening shift. Pt supine in bed watching tv during time of assessment. Assessment notable for non-pitting edema to right thigh, pedal pulses are palpable, sensation intact with mild numbness to bottom of foot, 2nd proximal coversite dressing reinforced by evening shift but was becoming saturated, removed both dressings, incision is well approximated with some serosang drainage and bruising around incision, pt tolerated dressing change well and is able to move himself in bed with much improvement since time of admission. Educated pt on low hemoglobin and hematocrit and the purpose for blood, pt's concerns r/t pain with needles and doesn't feel that his on going symptoms of dizziness with ambulating are related to low blood count levels. Attempted to educate pt on it and asked if he was willing to receive blood if levels continue to be low, pt continues to decline saying he would prefer it to go up on it's own. Acknowledge pt's feelings and concerns to which pt voices appreciation. Pt declines SCDs, voices understanding of purpose and agrees to foot pump. IV site in left AC was , asked pt if he was okay with site being changed, pt agreed to site change. Inserted new 18g IV catheter into right AC in the event that pt does require emergent transfusion or agrees to blood transfusion during hospital stay. Pt tolerated IV start well, flushed with 10ml NS and tape and secured appropriately. VSS, HR elevated at 100 bpm, RA 99% O2 sat, c/o pain initially of 4/10 numeric, updates to 6/10 numeric and requesting pain medication, 10mg [place] given per NOV. Bed alarm active, call light in reach, lights off per pt request, pt is a high fall risk d/t hx of fall and weakness with ambulation.
[2019-03-16 05:34] VITALS: BP 126/65; PULSE 96; RESP 16; TEMP 37.3; O2SAT 98
[2019-03-16 06:00] LABS: Hemoglobin 7.6 g/dL (13.5-17.5)
[2019-03-16 06:06] LABS: Hematocrit 22.2 % (41-53)
[2019-03-16 07:38] VITALS: BP 150/79; PULSE 92; RESP 18; TEMP 37.1; O2SAT 99
[2019-03-16] MEDS: SODIUM CHLORIDE 0.9% FLUSH 10 ML IV ×2 (08:25→21:28)
[2019-03-16] MEDS: ASCORBIC ACID 500 MG TABLET PO ×2 (08:25→21:13)
[2019-03-16] MEDS: DOCUSATE 100 MG CAPSULE PO ×2 (08:25→21:13)
[2019-03-16] MEDS: FERROUS GLUCONATE 324 MG TABLET PO ×2 (08:25→21:13)
[2019-03-16] MEDS: ENOXAPARIN 40 MG/0.4 ML SYRINGE SUBCUT (08:25)
[2019-03-16] MEDS: MELOXICAM 7.5 MG TABLET PO ×2 (09:18→21:13)
--- NOTE | 2019-03-16 09:40 | P.PN_ITS ---
Subjective Date Patient Seen: 03/16/19 Time Patient Seen: 09:36 Interval history: Hospital day 7, postop day 6 following right intertrochanteric fracture with IM nail. Toe-touch weight-bearing right leg. He has had limited physical therapy because of pain and postoperative anemia. Has been taking Morrill 10 mg for pain. His anemia has improved this morning with H&H 7.6/22.3. Patient is anticipating being discharged home tomorrow if stable. Exam Vital Signs (past 8 hours): - 03/16/19 05:34 03/16/19 07:38 Temperature 99.2 F 98.7 F Pulse Rate 96 H 92 H Respiratory Rate 16 18 Blood Pressure 126/65 150/79 H Pulse Oximetry 98 99 Oxygen Delivery Method Room Air Oxygen Flow Rate 0 Narrative Exam Narrative: Alert, oriented no acute distress resting in bed. Right leg. Edema to right thigh is noticeably improved with mild edema still present. Dressings are dry to lateral thigh. No calf pain or swelling. Pulses symmetrical. Objective Labs Result Diagrams: 03/16/19 05:32 03/10/19 00:30 Labs: Laboratory Results - last 24 hr 03/16/19 05:32 Hgb 7.6 L Hct 22.2 L Assessment & Plan Post-op Postoperative Procedures Operation Date: 03/10/19 17:30 Actual Procedures Side Surgeon p Intramedullary Nailing Femur Right Robert Arrington MD Plan: Patient will work with PT as much as possible today depending on his limitations. Will recheck H&H in the morning. Will start patient on meloxicam 7.5 mg b.i.d. to see if this will help with some of his pain and swelling. Ant icipate discharge home tomorrow if he is stable. Quality VTE Deep Vein Thrombosis/Pulmonary Embolism Present on Admission: No
[2019-03-16 11:09] VITALS: BP 144/74; PULSE 91; RESP 18; TEMP 37.3; O2SAT 100
--- NOTE | 2019-03-16 11:37 | PT.IPTN ---
Current Diagnoses Acute posthemorrhagic anemia (03/09/19) Displaced intertrochanteric fracture of right femur, initial encounter for closed fracture (03/09/19) Surgery Performed Operation Date: 03/10/19 17:30 Actual Procedures p Intramedullary Nailing Femur(Right) - Robert Arrington MD Physical Therapy Treatment Note M2 PT-IP Current Condition Start: 03/11/19 12:44 Freq: NEEDED Status: Active Protocol: Document 03/11/19 10:13 AB (Rec: 03/11/19 12:58 AB [id number]) Physical Therapy Current Condition Current Condition Evaluation Date 03/11/19 Treatment Diagnosis s/p R trochanteric/femoral fx s/p intramedullary fixation; diff in walking Onset Date 03/09/19 Weight Bearing Status Weight Bearing Status Touch Down Weight Bearing Allowed Weight Bearing Amount (enter % RLE TTWB or #) (%) M3 PT-IP Subjective Start: 03/11/19 12:44 Freq: NEEDED Status: Active Protocol: Document 03/16/19 11:27 SA (Rec: 03/16/19 11:37 SA [id number]) Subjective Physical Therapy Visit Type Type Treatment Note Visit Start Time 10:45 Visit Stop Time 11:14 Total Visit Minutes 29 Number of GINNER Visits 1 Physical Therapy Visit Comments Patient Comments Pt in bed and agreeable to PT. Therapy Pain Assessment Pain When Pain Assessed At Rest Pain Present Pain Present Pain Reported Location Right Thigh Intensity 4 Scale Used increased to 7/10 with mobility Pain Behaviors Guarding Pain Management Techniques Apply Cold Re-positioning Timing of Activity with Medications M4 PT-IP Mobility and Gait Start: 03/11/19 12:44 Freq: NEEDED Status: Active Protocol: Document 03/16/19 11:27 SA (Rec: 03/16/19 11:37 SA [id number]) PT-Bed Mobility Assessment Supine to Sit Supine to Sit Contact Guard Assistance Sit to Supine Sit to Supine Contact Guard Assistance 1 Person Assistance Bedrails Scooting Scooting to Edge of Bed Standby Assistance Scooting Up and Down in Bed Standby Assistance PT-Transfer Assessment Sit to and From Stand Sit to and from Stand Standby Assistance Use of Upper Extremities Equipment Transfer Assistive Device Gait Belt Front Wheeled Walker Orthotic/Prosthetic Devices or Brace: No Comments Mobility Comments Pt used leg machine splitter to clear RLE over EOB, slow segmental movements. BP in supine 142/86 and HR 87, Seated at MEH970/ 75 and HR 113, in standing 89/ 56 and HR 143. Pt with c/o claminess and fatigue. Gait Assessment Comments Gait Comments Defferred gait today d/t unstabe BPs and HR. M5 PT-IP Objective Assessments Start: 03/11/19 12:44 Freq: NEEDED Status: Active Protocol: Document 03/11/19 10:13 AB (Rec: 03/11/19 12:58 AB [id number]) Orientation Orientation/Cognition Level of Alertness Alert Safety Awareness Understands Safety Issues Memory Description No Deficits Noted Gross Range of Motion Lower Extremity ROM Assessment Right Impaired Impairments RLE tightness and pain inhibiting movement Strength Lower Extremity Strength Assessment Right Impaired Hip 2+/5 Knee 3-/5 Coordination Assessment Gross Coordination Gross Coordination WNL Sensation Assessment Sensation Gross Sensation WNL Muscle Tone Muscle Tone WNL Yes M6 PT-IP Treatment Start: 03/11/19 12:44 Freq: NEEDED Status: Active Protocol: Document 03/16/19 11:27 SA (Rec: 03/16/19 11:37 [id number]) Physical Therapy Treatment Exercises Exercises Ankle Pumps Heel Slides Supine Hip Abduction Education Education Provided Weight Bearing Status Safety Other Treatments Other Treatment Performed Pt limits RLE movements d/t pain. M7 PT-IP Assessment and Plan Start: 03/11/19 12:44 Freq: NEEDED Status: Active Protocol: Document 03/16/19 11:27 SA (Rec: 03/16/19 11:37 [id number]) PT Summary Assessment and Plan Summary Assessment Summary Pt symptomatic with position changes and unstable HR and BP , unable to walk today. review of LE supine exercise. Frequency of Treatment Frequency Of Treatment Twice a Day Treatment Plan Physical Therapy Treatment Plan Bed Mobility Training Transfer Training Gait Training Therapeutic Exercise Balance Retraining Post Op Education Discharge Planning Hot or Cold Pack Neuromuscular Re-ed Coordination Retraining Manual Therapy Recommendations To Nursing Amount of Assist Needed 1 Person Assist Discharge Recommendations PT Discharge Recommendations Home with 19/04 Assist Home Health
--- NOTE | 2019-03-16 11:44 | OT.IP.TRT ---
Current Diagnoses Acute posthemorrhagic anemia (03/09/19) Displaced intertrochanteric fracture of right femur, initial encounter for closed fracture (03/09/19) Surgery Performed Operation Date: 03/10/19 17:30 Actual Procedures p Intramedullary Nailing Femur(Right) - Robert Arrington MD Occupational Therapy Treatment Note M2 OT-IP Current Condition Start: 03/11/19 14:34 Freq: Status: Active Protocol: Document 03/11/19 14:34 CGR (Rec: 03/11/19 15:11 CGR [email or web address]) Occupational Therapy Current Condition Current Condition Evaluation Date 03/11/19 Treatment Diagnosis R femur fracture Diagnosis Onset Date 03/10/19 Weight Bearing Status Allowed Weight Bearing Amount (enter % Toe touch weight bearing or #) (%) M3 OT- IP Subjective and Pain Start: 03/11/19 14:34 Freq: Status: Active Protocol: Document 03/16/19 11:26 CCC (Rec: 03/16/19 11:43 CCC [email or web address]) OT- Subjective Occupational Therapy Visit Type Type Treatment Note Visit Start Time 10:50 Visit Stop Time 11:20 Total Visit Minutes 30 Occupational Therapy Visit Comments Patient Comments Pt wanting to get up and walk. HAND ETCHER already in the room when OT present. OT Pain Assessment Pain When Pain Assessed During Mobility Pain Present Pain Present Pain Reported Location Right Thigh Intensity 7 Scale Used Numeric (1 - 10) M4 OT- IP ADL's Start: 03/11/19 14:34 Freq: Status: Active Protocol: Document 03/15/19 13:36 CCC (Rec: 03/15/19 13:53 CCC [email or web address]) OT ADL-Dressing Comments OT Dressing Comments Pt issued LB dressing AED of hospital educator, sock aid, long handled shoe horn and long handled sponge. Recommended that pt have BSC if going home , downstairs bathroom only toilet in alcove and would benefit form BSC on top as pt heavily relies on his arms to get up. Pt will have to sponge bath for now as tub/ showr upstairs and not able to do steps at this time. When able to get upstairs will need tub bench. Also talked about getting a ramp for the 3 steps to get inot the house. M5 OT- IP IADL's Start: 03/11/19 14:34 Freq: Status: Active Protocol: Document 03/11/19 14:34 CGR (Rec: 03/11/19 15:11 CGR [email or web address]) OT-Instrumental Activities of Daily Living Deficits IADL Deficits Identified No Deficits Home Safety Awareness Awareness of Need for Assistance at Home Good Awareness Ability to Problem Solve Emergency Able to Problem Solve Situations Medication Management Medication Management No Deficits Identified Money Management Money Management No Deficits Identified M6 OT- IP Functional Cognition Start: 03/11/19 14:34 Freq: Status: Active Protocol: Document 03/13/19 16:15 [facility] (Rec: 03/13/19 13:01 [facility] [email or web address]) Cognitive Factors Limiting Selfcare Function Cognitive Ability Level of Alertness Alert Patient Orientation Name Year Place Situation Attention Span Ability Capable of Focused Attention Capable of Sustained Attention Ability to Follow Commands Able to Follow One Step Commands Memory Description No Deficits Noted Safety Awareness Underestimates Need for Assistance Problem Solving Ability No deficits Noted Executive Function Ability No Deficits Noted Abstract Thinking Ability No Deficits Noted Cognitive Comments Cognitive Assessment Comments Pt needing occasional reminders for safety, TTWB, pt able to do a good job to keep most of his weight on the left foot and heavily relies on his BUE on FWW while up. Pt states prior that he was so independent and now very enlightening that he has to slow down , thinks things through first, and realizing that he will need assist. M7 OT- IP Mobility and Balance Start: 03/11/19 14:34 Freq: Status: Active Protocol: Document 03/16/19 11:26 [facility] (Rec: 03/16/19 11:43 [facility] [email or web address]) OT- Bed Mobility Assessment Rolling Level of Assistance Standby Assistance Supine to Sit Supine to Sit Assist Standby Assistance Sit to Supine Sit to Supine Assist Standby Assistance Scooting Scooting to Edge of Bed Standby Assistance OT-Transfer Assessment Sit to and From Stand Sit to and from Stand Standby Assistance Comments Mobility Comments Pt's BP in supine 142/86 hr 86 , sitting 126/75, and standing 89/56 hr 143 and complianing of being light headed and sweaty and needing as wash cloth after he stood up to wipe. Pt able to use leg english language learner tutor to help move his leg into and out of the bed but still needing MIN cues for safety and sequence. Due to low BP and symptoms, only able tp work with pt minimally as Hgb 7.6L , and Hct 22.2L. Pending tomorrow if doing better with blood levels and BP, to try shower with pt. OT- Balance Assessment Sitting Balance and Reactions Static Sitting Balance Ability Normal Dynamic Sitting Balance Ability Normal Standing Balance and Reactions Static Standing Balance Ability Good M8 OT- IP Objective Assessments Start: 03/11/19 14:34 Freq: Status: Active Protocol: Document 03/11/19 14:34 CGR (Rec: 03/11/19 15:11 CGR [email or web address]) OT Gross Range of Motion Upper Extremity Range of Motion Assessment Within Functional Limits OT Strength Upper Extremity Strength Assessment Within Functional Limits Comments Strength Comments 5/5 throughout OT- Coordination Assessment Upper Extremity Finger to Nose Test Within Functional Limits Finger Tapping Test Within Functional Limits OT-Muscle Tone Assessment Muscle Tone WNL Yes OT Sensation Assessment Comments Summary Comments Pt states typical sensation to BUE Edema Edema Present Edema Comments significant edema noted to the RLE M9 OT- IP Assessment and Plan Start: 03/11/19 14:34 Freq: Status: Active Protocol: Document 03/16/19 11:26 CCC (Rec: 03/16/19 11:43 CCC [email or web address]) OT Summary Assessment and Plan Potential Rehabilitation Potential Good Analytic Complexity at Evaluation Moderate Summary OT Impairments Pain Range of Motion Balance Functional Mobility Grooming Dressing Toileting Bathing Toilet Transfers Shower Transfers Progress Towards Goals Slow Progress due to Medical Issues Assessment Summary Pt's main barrier is medical at this time which is limiting his mobility , Pt's BP drops and from 142/86 to 126/75 to 89/56 from positions of supine to sitting to standing. Pt looking to go home tomorrow Goals Grooming Goal Independent Dressing Goal Independent Floorwalker Sock Aid Toileting Goal Independent Bathing Goal Standby Assistance Toilet Transfer Goal Independent Shower Transfer Goal Independent Days to Meet Goals 7 Frequency of Treatment Frequency Of Treatment Once a Day Treatment Plan OT Treatment Plan ADL Training Functional Mobility Therapeutic Exercises Patient/Family Education Discharge Planning Other Treatment Recommendations and Next shower Treatment Focus Discharge Recommendations OT Discharge Recommendations Home with Assistance Home Health Other Discharge Recommendations Pt decided to go home to his parents and wiill have HH. Home Equipment Needs If pt going home will need caregiver training, tub bench, BSC/rts with handles, Hip kit , FWW , wc for longer distances
--- NOTE | 2019-03-16 14:08 | PC.NURSE ---
Day shift: Pt OOB with PT/OT today and Pt felt light headed. BP was 89/56 with HR of 143. Sitting and standing BP and HR WNL. Will continue to monitor. Pt also stated that he did not want any blood products.
[2019-03-16 16:17] VITALS: BP 134/75; PULSE 99; RESP 16; TEMP 37.5; O2SAT 100
--- NOTE | 2019-03-16 16:28 | PT.IPTN ---
Current Diagnoses Acute posthemorrhagic anemia (03/09/19) Displaced intertrochanteric fracture of right femur, initial encounter for closed fracture (03/09/19) Surgery Performed Operation Date: 03/10/19 17:30 Actual Procedures p Intramedullary Nailing Femur(Right) - Robert Arrington MD Physical Therapy Treatment Note M2 PT-IP Current Condition Start: 03/11/19 12:44 Freq: NEEDED Status: Active Protocol: Document 03/11/19 10:13 AB (Rec: 03/11/19 12:58 AB [id number]) Physical Therapy Current Condition Current Condition Evaluation Date 03/11/19 Treatment Diagnosis s/p R trochanteric/femoral fx s/p intramedullary fixation; diff in walking Onset Date 03/09/19 Weight Bearing Status Weight Bearing Status Touch Down Weight Bearing Allowed Weight Bearing Amount (enter % RLE TTWB or #) (%) M3 PT-IP Subjective Start: 03/11/19 12:44 Freq: NEEDED Status: Active Protocol: Document 03/16/19 16:22 SA (Rec: 03/16/19 16:28 SA [id number]) Subjective Physical Therapy Visit Type Type Treatment Note Visit Start Time 15:55 Visit Stop Time 16:13 Total Visit Minutes 18 Number of OFFICE MESSENGER Visits 2 Physical Therapy Visit Comments Patient Comments Pt in bed and agreeable to PT. Therapy Pain Assessment Pain When Pain Assessed At Rest Pain Present Pain Present Pain Reported Location Right Thigh Intensity 5 Pain Behaviors Guarding Pain Management Techniques Apply Cold Re-positioning Timing of Activity with Medications M4 PT-IP Mobility and Gait Start: 03/11/19 12:44 Freq: NEEDED Status: Active Protocol: Document 03/16/19 16:22 SA (Rec: 03/16/19 16:28 SA [id number]) PT-Bed Mobility Assessment Supine to Sit Supine to Sit Contact Guard Assistance Sit to Supine Sit to Supine Contact Guard Assistance 1 Person Assistance Bedrails Scooting Scooting to Edge of Bed Standby Assistance Scooting Up and Down in Bed Standby Assistance PT-Transfer Assessment Sit to and From Stand Sit to and from Stand Standby Assistance Use of Upper Extremities Equipment Transfer Assistive Device Gait Belt Front Wheeled Walker Orthotic/Prosthetic Devices or Brace: No Comments Mobility Comments BP in supine 132/59 and HR 91, in standing 75/4 and HR 138. Pt stood for about 2 min and became symptomatic and needed to sit, returned to supine and vitals stabilized. Pt is CGA with bed mobility and uses leg postal service mail processor to assist RLE. Gait Assessment Comments Gait Comments Defferred gait today d/t unstable BPs and HR. M5 PT-IP Objective Assessments Start: 03/11/19 12:44 Freq: NEEDED Status: Active Protocol: Document 03/11/19 10:13 AB (Rec: 03/11/19 12:58 AB [id number]) Orientation Orientation/Cognition Level of Alertness Alert Safety Awareness Understands Safety Issues Memory Description No Deficits Noted Gross Range of Motion Lower Extremity ROM Assessment Right Impaired Impairments RLE tightness and pain inhibiting movement Strength Lower Extremity Strength Assessment Right Impaired Hip 2+/5 Knee 3-/5 Coordination Assessment Gross Coordination Gross Coordination WNL Sensation Assessment Sensation Gross Sensation WNL Muscle Tone Muscle Tone WNL Yes M6 PT-IP Treatment Start: 03/11/19 12:44 Freq: NEEDED Status: Active Protocol: Document 03/16/19 16:22 (Rec: 03/16/19 16:28 [id number]) Physical Therapy Treatment Exercises Exercises Ankle Pumps Heel Slides Supine Hip Abduction Education Education Provided Weight Bearing Status Safety M7 PT-IP Assessment and Plan Start: 03/11/19 12:44 Freq: NEEDED Status: Active Protocol: Document 03/16/19 16:22 (Rec: 03/16/19 16:28 [id number]) PT Summary Assessment and Plan Summary Assessment Summary Pt with continued BP and HR changes with mobility, c/o feeling weak and light headed with standing. Unable to progress gait or txs today. Frequency of Treatment Frequency Of Treatment Twice a Day Treatment Plan Physical Therapy Treatment Plan Bed Mobility Training Transfer Training Gait Training Therapeutic Exercise Balance Retraining Post Op Education Discharge Planning Hot or Cold Pack Neuromuscular Re-ed Coordination Retraining Manual Therapy Recommendations To Nursing Amount of Assist Needed 1 Person Assist Discharge Recommendations PT Discharge Recommendations Home with 19/04 Assist Home Health
[2019-03-16 20:43] VITALS: BP 135/63; PULSE 96; RESP 16; TEMP 37.5; O2SAT 99
--- NOTE | 2019-03-16 22:50 | PC.NURSE ---
A&OX3. RA. no dizziness when laying down. Pt stood up for 2 minutes then became dizzy, BP dropped to 70's. bedrest. urinal independent. norco for pain. call light in reach.
[2019-03-16 23:00] VITALS: BP 142/68; PULSE 89; RESP 18; TEMP 36.6; O2SAT 99
[2019-03-17] MEDS: HYDROCODONE/ACET 5/325 TABLET 2 TAB PO ×5 (02:39→21:17)
[2019-03-17 05:47] LABS: Hematocrit 21.1 % (41-53); Hemoglobin 7.2 g/dL (13.5-17.5)
[2019-03-17 06:00] VITALS: BP 131/67; PULSE 89; RESP 18; TEMP 37.1; O2SAT 99
[2019-03-17 07:34] VITALS: BP 128/68; PULSE 94; RESP 18; TEMP 36.8; O2SAT 100
[2019-03-17] MEDS: MELOXICAM 7.5 MG TABLET PO ×2 (08:53→21:13)
[2019-03-17] MEDS: FERROUS GLUCONATE 324 MG TABLET PO ×2 (08:53→21:13)
[2019-03-17] MEDS: DOCUSATE 100 MG CAPSULE PO ×2 (08:53→21:14)
[2019-03-17] MEDS: ENOXAPARIN 40 MG/0.4 ML SYRINGE SUBCUT (08:53)
[2019-03-17] MEDS: ASCORBIC ACID 500 MG TABLET PO ×2 (08:53→21:14)
[2019-03-17] MEDS: SODIUM CHLORIDE 0.9% FLUSH 10 ML IV ×2 (08:54→21:22)
--- NOTE | 2019-03-17 10:45 | P.PN_ITS ---
Subjective Date Patient Seen: 03/17/19 Time Patient Seen: 10:43 Interval history: Patient is status post intramedullary fixation of a intertrochanteric femur fracture with extension into the shaft. Patient also had signs of a possible developing compartment syndrome which was treated as we ll. Patient is doing much better today. Able to do a little bit more with therapy. Still having some issues with anemia from the bleeding from the femoral shaft fracture. Exam Vital Signs (past 8 hours): - 03/17/19 06:00 03/17/19 07:34 Temperature 98.7 F 98.3 F Pulse Rate 89 94 H Respiratory Rate 18 18 Blood Pressure 131/67 128/68 Pulse Oximetry 99 100 Oxygen Delivery Method Room Air Oxygen Flow Rate 0 Narrative Exam Narrative: Patient's compartments are nice and soft. Swelling to the thigh has decreased significantly. Positive dorsiflexion and plantar flexion of the toes and ankle. Palpable pedal pulses. Nontender palpation to the posterior aspect of the calf. Patient's dressing are clean, dry, intact. Objective Labs Result Diagrams: 03/17/19 05:38 03/10/19 00:30 Labs: Laboratory Results - last 24 hr 03/17/19 05:38 Hgb 7.2 L Hct 21.1 L Assessment & Plan Post-op Postoperative Procedures Operation Date: 03/10/19 17:30 Actual Procedures Side Surgeon p Intramedullary Nailing Femur Right Robert Arrington MD Postoperative day: 7 Postoperative status: doing well Postoperative status narrative: Patient continuing to make improvements after sustaining a significant right femoral fracture. Postoperative plan: routine post-op care Postoperative plan narrative: Patient is possibly going to be discharged home today. Time Spent With Patient less than 15 minutes Quality VTE Deep Vein Thrombosis/Pulmonary Embolism Present on Admission: No
[2019-03-17 11:25] VITALS: BP 139/65; PULSE 81; RESP 18; TEMP 36.7; O2SAT 100
--- NOTE | 2019-03-17 11:41 | PM.PNPO.1 ---
Subjective Date Patient Seen: 03/17/19 Time Patient Seen: 11:41 Interval history: Hospital day 8, postop day 7 following right intertrochanteric fracture with IM nail. He is toe-touch weight-bearing to the right leg. He has had very limited activity and therapy because of pain and orthostatic issues. He did have an episode yesterday where he was started up for about 2 minutes and became dizzy and blood pressure dropped into the 70s. His H&H today 7.2/21.1 which is decreased from yesterday. Patient refused blood yesterday. I again talked with the patient at length about getting a blood to help with his recovery and function. He again refuses to have blood done. He does not have any specific reason for refusing the blood. Patient is on Lovenox. He still has significant pain with leg movement. Exam Vital Signs (past 8 hours): - 03/17/19 06:00 03/17/19 07:34 Temperature 98.7 F 98.3 F Pulse Rate 89 94 H Respiratory Rate 18 18 Blood Pressure 131/67 128/68 Pulse Oximetry 99 100 Oxygen Delivery Method Room Air Oxygen Flow Rate 0 Narrative Exam Narrative: Alert, oriented in no acute distress resting in bed. Right leg. Edema has improved with mild swelling of the leg. Dressings to lateral thigh are dry with some areas of shadowing. No calf pain or swelling. Pulses symmetrical. Objective Labs Result Diagrams: 03/17/19 05:38 03/10/19 00:30 Labs: Laboratory Results - last 24 hr 03/17/19 05:38 Hgb 7.2 L Hct 21.1 L Assessment & Plan Post-op Postoperative Procedures Operation Date: 03/10/19 17:30 Actual Procedures Side Surgeon p Intramedullary Nailing Femur Right Robert Arrington MD Plan: Patient is continuing to refuse blood. Will work with PT as best we can. Will plan to recheck hemogram in the morning and if stable would plan discharge to home with patient limiting his activity. He is to be on Lovenox for 10 days total. Quality VTE Deep Vein Thrombosis/Pulmonary Embolism Present on Admission: No
--- NOTE | 2019-03-17 12:02 | PC.NURSE ---
Day shift: Pt OOB w/ PT and OT at approx 1200. Orthostatic BP's WNL and asymptomatic when OOB this afternoon. Pt sitting in chair after ambulating in room. This is the best the Pt has done since the surgery. PAin being controlled by 2ea 5/325mg [place] Q4 hrs. Pt has been drinking over 1L of water every 8 hours and urine output is high. MD ordered H/H to be checked in AM. H/H today 7.2/21.1. Will continue to monitor.
--- NOTE | 2019-03-17 12:16 | PT.IPTN ---
Current Diagnoses Acute posthemorrhagic anemia (03/09/19) Displaced intertrochanteric fracture of right femur, initial encounter for closed fracture (03/09/19) Surgery Performed Operation Date: 03/10/19 17:30 Actual Procedures p Intramedullary Nailing Femur(Right) - Robert Arrington MD Physical Therapy Treatment Note M2 PT-IP Current Condition Start: 03/11/19 12:44 Freq: NEEDED Status: Active Protocol: Document 03/11/19 10:13 AB (Rec: 03/11/19 12:58 AB [id number]) Physical Therapy Current Condition Current Condition Evaluation Date 03/11/19 Treatment Diagnosis s/p R trochanteric/femoral fx s/p intramedullary fixation; diff in walking Onset Date 03/09/19 Weight Bearing Status Weight Bearing Status Touch Down Weight Bearing Allowed Weight Bearing Amount (enter % RLE TTWB or #) (%) M3 PT-IP Subjective Start: 03/11/19 12:44 Freq: NEEDED Status: Active Protocol: Document 03/17/19 12:11 GGD (Rec: 03/17/19 12:16 GGD [id number]) Subjective Physical Therapy Visit Type Type Treatment Note Visit Start Time 11:45 Visit Stop Time 12:10 Total Visit Minutes 25 Number of TOOTH POLISHER Visits 3 Physical Therapy Visit Comments Patient Comments Pt willing to get up. M4 PT-IP Mobility and Gait Start: 03/11/19 12:44 Freq: NEEDED Status: Active Protocol: Document 03/17/19 12:11 GGD (Rec: 03/17/19 12:16 GGD [id number]) PT-Bed Mobility Assessment Supine to Sit Supine to Sit Contact Guard Assistance Sit to Supine Sit to Supine Contact Guard Assistance 1 Person Assistance Bedrails Scooting Scooting to Edge of Bed Standby Assistance Scooting Up and Down in Bed Standby Assistance PT-Transfer Assessment Sit to and From Stand Sit to and from Stand Standby Assistance Use of Upper Extremities Equipment Transfer Assistive Device Gait Belt Front Wheeled Walker Orthotic/Prosthetic Devices or Brace: No Comments Mobility Comments BP in supine 131/80 and HR 78, in sitting 146/95 and HR 97, in standing 133/83 and HR 138, in sitting after activity 144 /69 and HR 104. Gait Assessment Gait Gait Assistance Required: Contact Guard Assist Distance (Feet) 10 Able to Maintain Weight Bearing Status No During Gait Assistive Devices Assistive Device Gait Belt Front Wheeled Walker Orthotic/Prosthetic Devices or Brace: No Gait Deviations General Gait Pattern Decreased Stride Length Decreased Feet Clearance Step-to Gait Factors Limiting Gait Function Factors Limiting Gait Function Decreased Activity Tolerance Decreased Strength Limited Range of Motion Pain Poor Balance M5 PT-IP Objective Assessments Start: 03/11/19 12:44 Freq: NEEDED Status: Active Protocol: Document 03/11/19 10:13 AB (Rec: 03/11/19 12:58 AB [id number]) Orientation Orientation/Cognition Level of Alertness Alert Safety Awareness Understands Safety Issues Memory Description No Deficits Noted Gross Range of Motion Lower Extremity ROM Assessment Right Impaired Impairments RLE tightness and pain inhibiting movement Strength Lower Extremity Strength Assessment Right Impaired Hip 2+/5 Knee 3-/5 Coordination Assessment Gross Coordination Gross Coordination WNL Sensation Assessment Sensation Gross Sensation WNL Muscle Tone Muscle Tone WNL Yes M6 PT-IP Treatment Start: 03/11/19 12:44 Freq: NEEDED Status: Active Protocol: Document 03/17/19 12:11 GGD (Rec: 03/17/19 12:16 GGD [id number]) Physical Therapy Treatment Exercises Exercises Ankle Pumps Gluteal Sets Quad Sets Heel Slides Seated Knee Flexion/Extension Other Treatments Other Treatment Performed Knee ROM in supine 38 and sitting 55 M7 PT-IP Assessment and Plan Start: 03/11/19 12:44 Freq: NEEDED Status: Active Protocol: Document 03/17/19 12:11 GGD (Rec: 03/17/19 12:16 GGD [id number]) PT Summary Assessment and Plan Summary Assessment Summary Pt able to improve mobility with stable BP. He was asymptomatic with mobility. He was able to progress gait with improved LE forward advancement. Frequency of Treatment Frequency Of Treatment Twice a Day Treatment Plan Physical Therapy Treatment Plan Bed Mobility Training Transfer Training Gait Training Therapeutic Exercise Balance Retraining Post Op Education Discharge Planning Hot or Cold Pack Neuromuscular Re-ed Coordination Retraining Manual Therapy Recommendations To Nursing Amount of Assist Needed 1 Person Assist Discharge Recommendations PT Discharge Recommendations Home with 19/04 Assist Home Health
--- NOTE | 2019-03-17 13:17 | CM.DPNOTE ---
DCP Cont: Met w/pt this morning to review plan of care and DCP. Discussed JOEY Eldridge's continued recommendation for blood transfusion based on pt's H+H trending downward. Pt says to this RETIREMENT PLAN COUNSELOR that his pain has been severe w/any movement since surgery and no one seems to understand that. This RETIREMENT PLAN COUNSELOR asks if pt has spoken w/RN and PA about his pain regimen? Pt says his pain regimen is fine. This RETIREMENT PLAN COUNSELOR encouraged pt to consider his preoperative Hematocrit of 35.5 which today is 21.1, Hemoglobin was 12.5, today it is 7.2 . JOEY feels this is not a therapeutic range for safe DC home, and numbers continue to drop. Pt is expected to mobilize better and recover more quickly if in a more therapeutic range. Pt states he disagrees w/the recommendation for blood transfusion and that everyone just wants to put a band aid on it. This RETIREMENT PLAN COUNSELOR asks what pt means by band aid on it and pt cycles back to talking about how swollen his leg is and how much it hurts. Pt repeats many times throughout our conversation that this was a really bad injury and extensive repair, and that is why he has been getting dizzy and lightheaded. Pt is very accusatory today. He remains calm and polite, though blames the therapy team for not being able to get him up to walk, pt says I'll get up and walk down the pope if I need to and I'll go home today, I don't care. Pt blames the nursing team for not getting evening pain medications to him and not properly medicating him before he works w/ PT. Pt understands that after further conversation w/the Orthopedic provider tomorrow, if his H+H continues to drop, and if pt continues to refuse blood, he will be DC home w/ risks of such explained, and pt says that's fine. Pt has no questions for this RETIREMENT PLAN COUNSELOR, he plans to DC home w/family tomorrow. Relayed above to CIARA Eldridge and asked what his medical plan will be? How long will pt be kept admitted if he continues to refuse blood and what is an acceptable H+H for DC home for a 28 yo? CIARA wants to hold pt until tomorrow, likely DC home Wednesday. [facility] has been updated on held DC today. ANDI Lees
--- NOTE | 2019-03-17 13:37 | CM.DPNOTE ---
Addendum entered by ANDI Lees 03/17/19 15:19: In addition, reviewed Dr Ramos's consultation note today and then spoke w/her this afternoon. No change in dispo recommendation from a psychiatric perspective. Updated Dr Rmaos on plan, now DC home Wednesday w/family and HH, hopefully H+H improves. Dr Ramos hopeful pt is agreeable to be seen in the outpt setting for continued MH assessment and treatment. This FOUNDRY TENDER will plan to review outpt MH resources w/pt and family Wednesday upon DC. Also requested that Alondra, RN Coordinator this evening, assist with referral to Dr Sullivan for appt. [id number], this appt. would include PCP f/u and f/u w/Dr Ramos through [facility] ([facility]). Following closely. JW Original Note: DCP Cont: Placed call to pt's father Rj Tamez at his physical therapy office P# [phone]. Explained that DC has been held today d/t low H+H, pt continues to refuse blood transfusion. Rj spoke w/pt last night and will plan to speak w/him again after work this evening. Rj is not optimistic his conversation w/pt will change his mind re: accepting blood transfusion but he confirms he will discuss this topic w/pt. This FOUNDRY TENDER explained to Rj that if pt's H+H does not improve, and therapy team can not mobilize d/t symptoms of low H+H, [facility] will not be providing anything medically that cannot be managed at home and Rj agreed. Rj remains agreeable to taking pt home tomorrow, he knows to bring pt back to the ER if pt unable to stand or mobilize w/o passing out. This FOUNDRY TENDER will keep pt's parents aware of any changes in DCP. The plan remains home w/family to assist w/ [facility]; pt and his parents remain agreeable to this. ANDI Lees
--- NOTE | 2019-03-17 13:50 | PT.IPTN ---
Current Diagnoses Acute posthemorrhagic anemia (03/09/19) Displaced intertrochanteric fracture of right femur, initial encounter for closed fracture (03/09/19) Surgery Performed Operation Date: 03/10/19 17:30 Actual Procedures p Intramedullary Nailing Femur(Right) - Robert Arrington MD Physical Therapy Treatment Note M2 PT-IP Current Condition Start: 03/11/19 12:44 Freq: NEEDED Status: Active Protocol: Document 03/11/19 10:13 AB (Rec: 03/11/19 12:58 AB [id number]) Physical Therapy Current Condition Current Condition Evaluation Date 03/11/19 Treatment Diagnosis s/p R trochanteric/femoral fx s/p intramedullary fixation; diff in walking Onset Date 03/09/19 Weight Bearing Status Weight Bearing Status Touch Down Weight Bearing Allowed Weight Bearing Amount (enter % RLE TTWB or #) (%) M3 PT-IP Subjective Start: 03/11/19 12:44 Freq: NEEDED Status: Active Protocol: Document 03/17/19 14:00 GGD (Rec: 03/17/19 15:47 GGD [id number]) Subjective Physical Therapy Visit Type Type Treatment Note Visit Start Time 13:50 Visit Stop Time 14:05 Total Visit Minutes 15 Number of CORPORATE TRAVEL EXPERT Visits 4 Physical Therapy Visit Comments Patient Comments Pt would like to shower with OT. Therapy Pain Assessment Pain When Pain Assessed At Rest Pain Present Pain Present Pain Reported Location Right Thigh Intensity 5 Scale Used Numeric (1 - 10) M4 PT-IP Mobility and Gait Start: 03/11/19 12:44 Freq: NEEDED Status: Active Protocol: Document 03/17/19 14:00 GGD (Rec: 03/17/19 15:47 GGD [id number]) PT-Transfer Assessment Sit to and From Stand Sit to and from Stand Standby Assistance Use of Upper Extremities Equipment Transfer Assistive Device Gait Belt Front Wheeled Walker Orthotic/Prosthetic Devices or Brace: No Comments Mobility Comments BP in sitting 129/81 and HR 99, in standing 110/79 and HR 118, in standing after activity 132/63 and HR 137. Gait Assessment Gait Gait Assistance Required: Contact Guard Assist Distance (Feet) 25 Able to Maintain Weight Bearing Status No During Gait Assistive Devices Assistive Device Gait Belt Front Wheeled Walker Orthotic/Prosthetic Devices or Brace: No Gait Deviations General Gait Pattern Decreased Stride Length Decreased Feet Clearance Step-to Gait Factors Limiting Gait Function Factors Limiting Gait Function Decreased Activity Tolerance Decreased Strength Limited Range of Motion Pain Poor Balance M5 PT-IP Objective Assessments Start: 03/11/19 12:44 Freq: NEEDED Status: Active Protocol: Document 03/11/19 10:13 AB (Rec: 03/11/19 12:58 AB [id number]) Orientation Orientation/Cognition Level of Alertness Alert Safety Awareness Understands Safety Issues Memory Description No Deficits Noted Gross Range of Motion Lower Extremity ROM Assessment Right Impaired Impairments RLE tightness and pain inhibiting movement Strength Lower Extremity Strength Assessment Right Impaired Hip 2+/5 Knee 3-/5 Coordination Assessment Gross Coordination Gross Coordination WNL Sensation Assessment Sensation Gross Sensation WNL Muscle Tone Muscle Tone WNL Yes M6 PT-IP Treatment Start: 03/11/19 12:44 Freq: NEEDED Status: Active Protocol: Document 03/17/19 14:00 GGD (Rec: 03/17/19 15:47 GGD [id number]) Physical Therapy Treatment Exercises Exercises Ankle Pumps Gluteal Sets Quad Sets Seated Knee Flexion/Extension Education Education Provided Weight Bearing Status M7 PT-IP Assessment and Plan Start: 03/11/19 12:44 Freq: NEEDED Status: Active Protocol: Document 03/17/19 14:00 GGD (Rec: 03/17/19 15:47 GGD [id number]) PT Summary Assessment and Plan Summary Assessment Summary Pt improving with mobility. He has improved standing balance and advancement of LE. He had no C/O lightheadedness with mobility. Frequency of Treatment Frequency Of Treatment Twice a Day Recommendations To Nursing Amount of Assist Needed 1 Person Assist Discharge Recommendations PT Discharge Recommendations Home with 19/04 Assist Home Health
--- NOTE | 2019-03-17 14:28 | PM.CN ---
History of Present Illness Date Patient Seen: 03/17/19 Time Patient Seen: 07:40 Chief complaint: states right femure/upper leg pain from fall Reason for consult: Dispo planning Requesting provider: Katya Crandall Narrative: Updated Hospital Course: Some anemia, H&H followed daily, pt had been offered transfusion but declined; pt not orthostatic, treatment with iron felt appropriate. Plan for discharge to home today. VSS, no prn medication for anxiety or insomnia. CM met with family on 03/15/19. This keno writer spoke with pt?s mother (GIOVANA on file) 03/15/19 via telephone, reviewed concerns about pattern of behavior & lack of engagement in mental health care. Mother also present at the hospital today, and we spoke in-person prior to my visit with Gabo. Interview: Gabo reports having leg pain, otherwise feeling ok. He is willing to have a f/u visit with me in Dr. Sullivan?s clinic. I asked about feeling dizzy & his anemia, and he reports not being able to breathe as well with the door shut. ?I?m not into giving blood, I have friends who are into that & it?s not good? and he expressed worries about nausea or feeling badly. I reflected that he is worried that a transfusion would make him feel worse, and he states that he is sure things will improve on their own. He feels that if the door remains open it will be helpful to avoid dizziness. He does not endorse feeling depressed or anxious. He reports sleeping poorly in the hospital, has been sleeping some during the day which doesn?t help. PSYCHOTHERAPY INTERVENTIONS PERFORMED: Supportive interventions to bolster adaptive coping mechanisms GOAL: Establish rapport to facilitate eval & treatment PROGRESS TOWARD GOAL: minimal DURATION OF PSYCHOTHERAPY: 18 minutes with patient & family [facility] Social History (Updated 03/09/19 @ 23:36 by Billy Chavez DO) marital status: unmarried,single household members: family lives independently: Yes caregiver/support person: No housing: house Smoking Status: Current every day smoker alcohol intake: current Social History (Updated 03/09/19 @ 23:36 by Billy Chavez DO) marital status: unmarried,single household members: family lives independently: Yes caregiver/support person: No housing: house Smoking Status: Current every day smoker alcohol intake: current Meds Home Medications Medication Instructions Recorded Confirmed Type No Known Home Medications 03/10/19 03/10/19 History Allergies Allergy/AdvReac Type Severity Reaction Status Date / Time No Known Drug Allergies Allergy Verified 03/09/19 23:42 Review of Systems Review of Systems Psych as in HPI, +leg pain, +dizziness, no nausea Exam Vital Signs (past 8 hours): - 03/17/19 07:34 03/17/19 11:25 Temperature 98.3 F 98.1 F Pulse Rate 94 H 81 Respiratory Rate 18 18 Blood Pressure 128/68 139/65 Pulse Oximetry 100 100 Oxygen Delivery Method Room Air Oxygen Flow Rate 0 Narrative Exam Narrative: MENTAL STATUS EXAM Appearance: groomed with short hair, wearing hospital garb, casually dressed, appears stated age Behavior: Calm, cooperative, good eye contact, no psychomotor agitation or slowing, no tremor or involuntary movements observed; sitting in chair Gait: sitting, not observed Speech: Normal rate, volume, and sendy Mood: ok Affect: Congruent with content, slightly irritable, normal range and reactivity Thought Process: Linear, goal-directed Thought Content: Denies suicidal ideation, no evidence of HI, denies hallucinations, no clear evidence of paranoia or delusions Attention: Attentive to interview Orientation: Oriented to person place and time Memory: Intact for interview, not formally tested Insight: Fair-limited Judgment: Limited Objective Labs Result Diagrams: 03/17/19 05:38 03/10/19 00:30 Labs: Laboratory Results - last 24 hr 03/17/19 05:38 Hgb 7.2 L Hct 21.1 L Assessment & Plan Assessment & Plan narrative: Initial ASSESSMENT: Gabo Tamez is a 28-year-old male, single, admitted to on 03/10/19 with femoral fracture now s/u intramedullary nailing. Psychiatry consult requested for help with discharge planning, given affidavits from family regarding mental health. On my exam, Gabo is not displaying active psychiatric symptoms, and has been cooperative & appropriate with his medical care. I do not have active concerns about psychiatric symptoms interfering with his immediate medical care or impacting his discharge from the hospital, I feel he is appropriate for any discharge felt appropriate by his surgical team. His family?s affidavits raise serious concern for recent manic and/or psychotic symptoms, and Gabo endorses history of depression. Given his lack of current symptoms, I feel the best plan is to try & engage him in any treatment he is willing to accept which could help create rapport for later treatment. This may be possible through his primary care clinic, with behavioral health integration program ([facility]). Based on family?s affidavits, it appears he has not pursued care in the past. Certainly when present manic or psychotic symptoms can create emergent need for treatment, but currently he is appropriate for engagement as an outpatient. I attempted to build some small rapport with Gabo, as I work with the integration program that he could access as an outpatient. Update 03/17/19: Gabo continues to be stable from a psychiatric perspective. His refusal of blood transfusion to treat anemia without clear reasoning raises some concern for underlying paranoia, but is not clearly putting his life in danger. If he cannot explain his medical decision-making to his treatment team, and this is interfering with his medical treatment, I may be able to help clarify issues around capacity or psychiatric symptoms as pertinent to the situation. DIAGNOSES: Unspecified mood disorder Rule out bipolar 1 disordervs. primary psychotic disorder RECOMMENDATIONS: - No change to dispo plan from a psychiatric perspective - Schedule f/u with Dr. Sullivan upon discharge, who can facilitate referral to [facility] program - Schedule [facility] visit with Dr. Ramos on a Wednesday in [facility] (Jessica Mcmahan can help to coordinate) - Consider referral to [facility] if patient is willing Thank you for involving me in this patient's care. I can see patient again for consult follow-up if he remains in the hospital, otherwise I will see as an outpatient in [facility] as planned. Please contact me with questions or concerns at [phone]. Time Spent With Patient Time with patient: 15-24 minutes
--- NOTE | 2019-03-17 14:39 | P.CONS_ITS ---
History of Present Illness Date Patient Seen: 03/17/19 Time Patient Seen: 07:40 Chief complaint: states right femure/upper leg pain from fall Reason for consult: Dispo planning Requesting provider: Katya Crandall Narrative: Updated Hospital Course: Some anemia, H&H followed daily, pt had been offered transfusion but declined; pt not orthostatic, treatment with iron felt appropriate. Plan for discharge to home today. VSS, no prn medication for anxiety or insomnia. CM met with family on 03/15/19. This scientific technical writer spoke with pt?s mother (GIOVANA on file) 03/15/19 via telephone, reviewed concerns about pattern of behavior & lack of engagement in mental health care. Mother also present at the hospital today, and we spoke in-person prior to my v isit with Gabo. Interview: Gabo reports having leg pain, otherwise feeling ok. He is willing to have a f/u visit with me in Dr. Sullivan?s clinic. I asked about feeling dizzy & his anemia, and he reports not being able to breathe as well with the door shut. ?I?m not into giving blood, I have friends who are into that & it?s not good? and he expressed worries about nausea or feeling badly. I reflected that he is worried that a transfusion would make him feel worse, and he states that he is sure things will improve on their own. He feels that if the door remains open it will be helpful to avoid dizziness. He does not endorse feeling depressed or anxious. He reports sleeping poorly in the hospital, has been sleeping some during the day which doesn?t help. PSYCHOTHERAPY INTERVENTIONS PERFORMED: Supportive interventions to bolster adaptive coping mechanisms GOAL: Establish rapport to facilitate eval & treatment PROGRESS TOWARD GOAL: minimal DURATION OF PSYCHOTHERAPY: 18 minutes with patient & family [facility] Social History (Updated 03/09/19 @ 23:36 by Billy Chavez DO) marital status: unmarried,single household members: family lives independently: Yes caregiver/support person: No housing: house Smoking Status: Current every day smoker alcohol intake: current Social History (Updated 03/09/19 @ 23:36 by Billy Chavez DO) marital status: unmarried,single household members: family lives independently: Yes caregiver/support person: No housing: house Smoking Status: Current every day smoker alcohol intake: current Meds Home Medications Medication Instructions Recorded Confirmed Type No Known Home Medications 03/10/19 03/10/19 History Allergies Allergy/AdvReac Type Severity Reaction Status Date / Time No Known Drug Allergies Allergy Verified 03/09/19 23:42 Review of Systems Review of Systems Psych as in HPI, +leg pain, +dizziness, no nausea Exam Vital Signs (past 8 hours): - 03/17/19 07:34 03/17/19 11:25 Temperature 98.3 F 98.1 F Pulse Rate 94 H 81 Respiratory Rate 18 18 Blood Pressure 128/68 139/65 Pulse Oximetry 100 100 Oxygen Delivery Method Room Air Oxygen Flow Rate 0 Narrative Exam Narrative: MENTAL STATUS EXAM Appearance: groomed with short hair, wearing hospital garb, casually dressed, appears stated age Behavior: Calm, cooperative, good eye contact, no psychomotor agitation or slo wing, no tremor or involuntary movements observed; sitting in chair Gait: sitting, not observed Speech: Normal rate, volume, and sendy Mood: ok Affect: Congruent with content, slightly irritable, normal range and reactivity Thought Process: Linear, goal-directed Thought Content: Denies suicidal ideation, no evidence of HI, denies hallucinations, no clear evidence of paranoia or delusions Attention: Attentive to interview Orientation: Oriented to person place and time Memory: Intact for interview, not formally tested Insight: Fair-limited Judgment: Limited Objective Labs Result Diagrams: 03/17/19 05:38 03/10/19 00:30 Labs: Laboratory Results - last 24 hr 03/17/19 05:38 Hgb 7.2 L Hct 21.1 L Assessment & Plan Assessment & Plan narrative: Initial ASSESSMENT: Gabo Tamez is a 28-year-old male, single, admitted to on 03/10/19 with femoral fracture now s/u intramedullary nailing. Psychiatry consult requested for help with discharge planning, given affidavits from family regarding mental health. On my exam, Gabo is not displaying active psychiatric symptoms, and has been cooperative & appropriate with his medical care. I do not have active concerns about psychiatric symptoms interfering with his immediate medical care or impacting his discharge from the hospital, I feel he is appropriate for any di scharge felt appropriate by his surgical team. His family?s affidavits raise serious concern for recent manic and/or psychotic symptoms, and Gabo endorses history of depression. Given his lack of current symptoms, I feel the best plan is to try & engage him in any treatment he is willing to accept which could help create rapport for later treatment. This may be possible through his primary care clinic, with behavioral health integration program ([facility]). Based on family?s affidavits, it appears he has not pursued care in the past. Certainly when present manic or psychotic symptoms can create emergent need for treatment, but currently he is appropriate for engagement as an outpatient. I attempted to build some small rapport with Gabo, as I work with the integration program that he could access as an outpatient. Update 03/17/19: Gabo continues to be stable from a psychiatric perspective. His refusal of blood transfusion to treat anemia without clear reasoning raises some concern for underlying paranoia, but is not clearly putting his life in danger. If he cannot explain his medical decision-making to his treatment team, and this is interfering with his medical treatment, I may be able to help clarify issues around capacity or psychiatric symptoms as pertinent to the situation. DIAGNOSES: Unspecified mood disorder Rule out bipolar 1 disordervs. primary psychotic disorder RECOMMENDATIONS: - No change to dispo plan from a psychiatric perspective - Schedule f/u with Dr. Sullivan upon discharge, who can facilitate referral to [facility] program - Schedule [facility] visit with Dr. Ramos on a Wednesday in [facility] (Jessica Mcamhan can help to coordinate) - Consider referral to [facility] if patient is willing Thank you for involving me in this patient's care. I can see patient again for c onsult follow-up if he remains in the hospital, otherwise I will see as an outpatient in [facility] as planned. Please contact me with questions or concerns at [phone]. Time Spent With Patient Time with patient: 15-24 minutes
--- NOTE | 2019-03-17 16:10 | OT.IP.TRT ---
Current Diagnoses Acute posthemorrhagic anemia (03/09/19) Displaced intertrochanteric fracture of right femur, initial encounter for closed fracture (03/09/19) Surgery Performed Operation Date: 03/10/19 17:30 Actual Procedures p Intramedullary Nailing Femur(Right) - Robert Arrington MD Occupational Therapy Treatment Note M2 OT-IP Current Condition Start: 03/11/19 14:34 Freq: Status: Active Protocol: Document 03/11/19 14:34 CGR (Rec: 03/11/19 15:11 CGR [email or web address]) Occupational Therapy Current Condition Current Condition Evaluation Date 03/11/19 Treatment Diagnosis R femur fracture Diagnosis Onset Date 03/10/19 Weight Bearing Status Allowed Weight Bearing Amount (enter % Toe touch weight bearing or #) (%) M3 OT- IP Subjective and Pain Start: 03/11/19 14:34 Freq: Status: Active Protocol: Document 03/17/19 15:34 CCC (Rec: 03/17/19 16:09 CCC [email or web address]) OT- Subjective Occupational Therapy Visit Type Type Treatment Note Visit Start Time 11:55 Visit Stop Time 12:10 Total Visit Minutes 75 Notes Pt seen in PM [id number] for shower. Occupational Therapy Visit Comments Patient Comments Pt states feeling much better and not as symptomatic as yesterday. Hgb 7.2 and Hct 21 .1 today. OT Pain Assessment Pain When Pain Assessed At Rest Pain Present Pain Present Pain Reported Location Right Thigh Intensity 5 Scale Used Numeric (1 - 10) M4 OT- IP ADL's Start: 03/11/19 14:34 Freq: Status: Active Protocol: Document 03/17/19 15:34 CCC (Rec: 03/17/19 16:09 CCC [email or web address]) OT ADL-Grooming General Evaluation Grooming Ability Independent Comments OT Grooming Comments Pt independent with FWW to supervisor stitching department front of the sink for all grooming needs and good follow through for TTWB for RLE. OT ADL-Oral Care General Eval Oral Care Ability Independent OT ADL-Dressing General Eval Upper Body Dressing Ability Independent Lower Body Dressing Ability Minimal Assistance Areas Needing Assistance Underpants/Brief Pants/Shorts Socks Assistive Devices Dressing Assistive Devices Long Handled Shoe [place] Desktop Technician Sock Aid Comments OT Dressing Comments Pt only needing SHELL to help lift RLE to help get shorts on over his right foot. Pt able to use sock aid for socks independently. OT ADL-Toileting General Evaluation Toileting Ability Standby Assistance Comments OT Toileting Comments Set-up for wipes so pt able to wipe. OT ADL-Bathing Bathing Type Bathing Type Shower General Evaluation Bathing Ability Standby Assistance Devices Bathing Equipment Shower Chair with Arms Grab Bars Comments OT Bathing Comments Pt able to shower while sitting in the shower chair and able to stand with grab bars to do pericare needs. M5 OT- IP IADL's Start: 03/11/19 14:34 Freq: Status: Active Protocol: Document 03/11/19 14:34 CGR (Rec: 03/11/19 15:11 CGR [email or web address]) OT-Instrumental Activities of Daily Living Deficits IADL Deficits Identified No Deficits Home Safety Awareness Awareness of Need for Assistance at Home Good Awareness Ability to Problem Solve Emergency Able to Problem Solve Situations Medication Management Medication Management No Deficits Identified Money Management Money Management No Deficits Identified M6 OT- IP Functional Cognition Start: 03/11/19 14:34 Freq: Status: Active Protocol: Document 03/17/19 15:34 [facility] (Rec: 03/17/19 16:09 [facility] [email or web address]) Cognitive Factors Limiting Selfcare Function Cognitive Ability Level of Alertness Alert Patient Orientation Name Age Birthday Month Date Year Day of Week Place Situation Attention Span Ability Capable of Focused Attention Capable of Sustained Attention Ability to Follow Commands Able to Follow Multi-Step Commands Memory Description No Deficits Noted Safety Awareness No Deficits Noted Problem Solving Ability No deficits Noted Executive Function Ability No Deficits Noted Abstract Thinking Ability No Deficits Noted Cognitive Comments Cognitive Assessment Comments Pt at baseline level. M7 OT- IP Mobility and Balance Start: 03/11/19 14:34 Freq: Status: Active Protocol: Document 03/17/19 15:34 [facility] (Rec: 03/17/19 16:09 [facility] [email or web address]) OT-Transfer Assessment Sit to and From Stand Sit to and from Stand Independent Transfers Transfer Ability Independent Standby Assistance Technique Transfer Destination Chair Shower Stall Toilet Devices Transfer Assistive Devices Gait Belt Front Wheeled Walker Comments Mobility Comments Pt's BP at lunch time supine 131/80 78hr, sitting 146/95 97 hr, standing 133/83 123hr, and after standing 144/69 104hr. Pt not symptomatic. in PM sitting 129/81 99hr, standing 110/79 118 hr, and after walking 132/63 137 hr. Pt not complaining of any symptoms. OT- Balance Assessment Sitting Balance and Reactions Static Sitting Balance Ability Normal Dynamic Sitting Balance Ability Normal Standing Balance and Reactions Static Standing Balance Ability Good M8 OT- IP Objective Assessments Start: 03/11/19 14:34 Freq: Status: Active Protocol: Document 03/11/19 14:34 CGR (Rec: 03/11/19 15:11 CGR [email or web address]) OT Gross Range of Motion Upper Extremity Range of Motion Assessment Within Functional Limits OT Strength Upper Extremity Strength Assessment Within Functional Limits Comments Strength Comments 5/5 throughout OT- Coordination Assessment Upper Extremity Finger to Nose Test Within Functional Limits Finger Tapping Test Within Functional Limits OT-Muscle Tone Assessment Muscle Tone WNL Yes OT Sensation Assessment Comments Summary Comments Pt states typical sensation to BUE Edema Edema Present Edema Comments significant edema noted to the RLE M9 OT- IP Assessment and Plan Start: 03/11/19 14:34 Freq: Status: Active Protocol: Document 03/17/19 15:34 CCC (Rec: 03/17/19 16:09 CCC [email or web address]) OT Summary Assessment and Plan Potential Rehabilitation Potential Good Analytic Complexity at Evaluation Moderate Summary OT Impairments Pain Range of Motion Functional Mobility Dressing Bathing Progress Towards Goals Progressing Toward Goals Assessment Summary Pt doing much better today and able to take a shower. Pt still needing SHELL for LB dressing needs. Pt's BP not dropping anymore while standing however HR does go up after exertion. Pt looking to go home with family tomorrow if medically stable. Goals Dressing Goal Independent Desktop Technician Sock Aid Patient/Caregiver Education Goal Demonstrate Post-Op Precautions Caregiver Independent Assisting Patient Days to Meet Goals 2 Frequency of Treatment Frequency Of Treatment Once a Day Treatment Plan OT Treatment Plan ADL Training Functional Mobility Therapeutic Exercises Patient/Family Education Discharge Planning Other Treatment Recommendations and Next caregiver training, double Treatment Focus check if all equipment obtained Discharge Recommendations OT Discharge Recommendations Home with Assistance Home Health Home Equipment Needs If pt going home will need caregiver training, tub bench, BSC/rts with handles, Hip kit , FWW , wc for longer distances
[2019-03-17 19:46] VITALS: BP 131/79; PULSE 111; RESP 16; TEMP 37.1; O2SAT 100
[2019-03-17 23:00] VITALS: BP 128/56; PULSE 96; RESP 16; TEMP 37.5; O2SAT 98
[2019-03-18] MEDS: HYDROCODONE/ACET 5/325 TABLET 2 TAB PO ×3 (01:27→11:19)
--- NOTE | 2019-03-18 03:45 | PC.NURSE ---
Sulfate Drier Machine Operator Note: 0000: Pt sleeping; respirations unlabored. Not disturbed at this time. 0120: Awake, having pain 6/10 in rt thigh. Medicated with 2 Vicodin. Vital signs stable. Dressings X4 to rt thigh intact, with shadow drainage on lower three dressings.
[2019-03-18 05:30] VITALS: BP 130/66; PULSE 96; RESP 16; TEMP 37.5; O2SAT 100
[2019-03-18 06:52] LABS: Mean Corpuscular HGB Conc 34.3 % (30-36); Mean Corpuscular Hemoglobin 30.2 PG (26-34); Mean Corpuscular Volume 88.1 fL (80-100); Platelet Count 444 X10^3/uL (150-400); Red Blood Cell Count 2.32 X10^6/uL (4.5-5.9); Red Cell Distribution Width 12.6 % (11.6-14.8); White Blood Cell Count 8.2 X10^3/uL (4.5-11.0)
[2019-03-18 06:57] LABS: Hematocrit 20.4 % (41-53)
[2019-03-18 07:55] VITALS: BP 143/58; PULSE 86; RESP 18; TEMP 37.1; O2SAT 99
[2019-03-18] MEDS: DOCUSATE 100 MG CAPSULE PO (09:05)
[2019-03-18] MEDS: FERROUS GLUCONATE 324 MG TABLET PO (09:05)
[2019-03-18] MEDS: ASCORBIC ACID 500 MG TABLET PO (09:05)
[2019-03-18] MEDS: SODIUM CHLORIDE 0.9% FLUSH 10 ML IV (09:06)
[2019-03-18] MEDS: MELOXICAM 7.5 MG TABLET PO (09:06)
[2019-03-18] MEDS: ENOXAPARIN 40 MG/0.4 ML SYRINGE SUBCUT (09:06)
--- NOTE | 2019-03-18 11:08 | PM.DS.1 ---
History of Present Illness Date Patient Seen: 03/18/19 Time Patient Seen: 11:09 Chief complaint: states right femure/upper leg pain from fall Narrative: Please see HPI in the chart. Discharge Providers Date of admission: 03/09/19 23:57 Discharge Date: 03/18/19 Primary care physician: Celestino Sullivan MD Consults: 03/10/19 01:43 Consult to Dietitian, Adult Routine Comment: Reason For Exam: Pt reports decreased appetite Consult to Respiratory Therapy Evaluate & Treat Comment: Physician Instructions: Evaluate and treat Consult to Printing Machine Operator Routine Comment: 03/10/19 20:51 Consult to Discharge Planning Routine Comment: Consult to Physical Therapy Evaluate & Treat Comment: TTWB RLE Physician Instructions: Evaluate and Treat Consult to Respiratory Therapy Evaluate & Treat Comment: Physician Instructions: Evaluate and treat 03/11/19 10:11 Consult to Occupational Therapy Evaluate & Treat Comment: Physician Instructions: Evaluate and treat 03/13/19 11:00 Consult to Physician Routine Comment: Consulting Provider: Jake Ramos Reason for consultation: Schizoaffective disorder bipolar type Has provider been notified: Yes Discharge provider: Katya Crandall PA-C Summary Discharge Diagnosis: s/p intramedulary fixation of right femur fracture Hospital Course: On date of service, patient was met in the holding area where his operative site was signed and witnessed by the OR staff. The surgery was once again discussed with the patient as well as family. All of the patient's questions and concerns were answered to his full satisfaction. He was taken to the operating room and underwent intramedulary fixation of a right femur fracture with Dr. Arrington on 03/09/19. His post operative course has been complicated by slow sangenous drainage from the wound requiring dressing changes. This resolved by POD#6 and fresh dressing will be applied prior to discharge. He has history of schizoaffective disorder and has been followed by psychiatry who feel he is stable for discharge to home. He has post operative anemia and has had intermittent dizziness with standing that has prevented him from working with physical therapy. Patient was offered blood transfusion with explanation of benefits and risks and has refused for three consecutive days. He states he has not had any episodes of dizziness for the last 24 hours, and his vitals have been stable. He is being discharged to home at this time as he is refusing transfusion and is otherwise stable from a medical perspective. He has a good support system at home and will be staying with his parents. Home health has also been ordered to assist in his post operative management upon discharge. He is recommended to follow up with orthopedics and psychiatry on an outpatient basis. Status at Discharge Cognitive/behavioral status at discharge: oriented Functional status at discharge: uses cane/walker Overall status at discharge: patient is progressing back to baseline Exam Vital Signs (past 8 hours): - 03/18/19 05:30 03/18/19 07:55 Temperature 99.5 F 98.7 F Pulse Rate 96 H 86 Respiratory Rate 16 18 Blood Pressure 130/66 143/58 H Pulse Oximetry 100 99 Oxygen Delivery Method Room Air Oxygen Flow Rate 0 Narrative Exam Narrative: 28 year old male resting in chair. Alert and oriented in no acute distress. Dressings in place over right hip with minimal shadow drainage. 5/5 ankle dorsiflexion and plantar flexion. Sensation intact in distal extremity. Palpable pedal pulses. Calves soft, compressible. Objective Labs Result Diagrams: 03/18/19 06:43 03/10/19 00:30 Labs: Laboratory Results - last 24 hr 03/18/19 06:43 WBC 8.2 RBC 2.32 L Hgb 7.0 L Hct 20.4 L* MCV 88.1 MCH 30.2 MCHC 34.3 RDW 12.6 Plt Count 444 H Discharge Plan Discharge Plan Patient Disposition: Home Discharge Med Rec/Prescriptions Prescriptions: New acetaminophen 325 mg Tablet 975 mg PO TID PRN (Reason: Headache) Qty: 60 RF: 0 meloxicam [Mobic] 7.5 mg Tablet 7.5 mg PO BID Qty: 30 RF: 0 ascorbic acid (vitamin C) [Vitamin C] 500 mg Tablet 500 mg PO BID Qty: 60 RF: 0 oxycodone 5 mg Tablet 5 mg PO Q4-6H PRN (Reason: Pain, Moderate (4-6)) Qty: 40 RF: 0 enoxaparin [Lovenox] 40 mg/0.4 mL Syringe 40 mg subcut DAILY 2 Days Qty: 2 RF: 0 ferrous gluconate 324 mg (38 mg iron) Tablet 324 mg PO BID Qty: 60 RF: 0 Follow up/Referrals: Celestino Sullivan MD [Primary Care Provider] - 04/04/19 3:30 pm Robert Arrington MD [Physician] - Jake Ramos DO [Physician] - Provider Discharge Instructions Diet: Diet as Tolerated Activity: Toe touch weight bearing on the left side. Cold/Heat Therapy: Ice packs as needed. Skin/Wound/Dressing Care Report to your healthcare provider any signs of infection, such as:: chills, fever, night sweats, unusual drainage and unusual redness Dressing: Leave dressing in place, will be removed at outpatient follow up. Call the office if dressing is overly stained. Visit Report/Discharge Packet Stand Alone Forms: Surgery Discharge Discharge Data Primary Care Provider: Celestino Sullivan Attending Provider: Robert Arrington Admit Date/Time: 03/09/19 23:57 Quality VTE Deep Vein Thrombosis/Pulmonary Embolism Present on Admission: No
[2019-03-18 11:15] VITALS: BP 134/79; PULSE 99; RESP 18; TEMP 37.1; O2SAT 100
--- NOTE | 2019-03-18 11:45 | PT.IPTN ---
Current Diagnoses Acute posthemorrhagic anemia (03/09/19) Displaced intertrochanteric fracture of right femur, initial encounter for closed fracture (03/09/19) Surgery Performed Operation Date: 03/10/19 17:30 Actual Procedures p Intramedullary Nailing Femur(Right) - Robert Arrington MD Physical Therapy Treatment Note M2 PT-IP Current Condition Start: 03/11/19 12:44 Freq: NEEDED Status: Active Protocol: Document 03/11/19 10:13 AB (Rec: 03/11/19 12:58 AB [id number]) Physical Therapy Current Condition Current Condition Evaluation Date 03/11/19 Treatment Diagnosis s/p R trochanteric/femoral fx s/p intramedullary fixation; diff in walking Onset Date 03/09/19 Weight Bearing Status Weight Bearing Status Touch Down Weight Bearing Allowed Weight Bearing Amount (enter % RLE TTWB or #) (%) M3 PT-IP Subjective Start: 03/11/19 12:44 Freq: NEEDED Status: Active Protocol: Document 03/18/19 11:45 GGD (Rec: 03/18/19 12:28 GGD [email or web address]) Subjective Physical Therapy Visit Type Type Treatment Note Visit Start Time 11:15 Visit Stop Time 11:45 Total Visit Minutes 30 Number of RN ALLERGY Visits 5 Physical Therapy Visit Comments Patient Comments Pt states he is feeling better and pain is not bad. M4 PT-IP Mobility and Gait Start: 03/11/19 12:44 Freq: NEEDED Status: Active Protocol: Document 03/18/19 11:45 GGD (Rec: 03/18/19 12:28 GGD [email or web address]) PT-Transfer Assessment Sit to and From Stand Sit to and from Stand Standby Assistance Use of Upper Extremities Equipment Transfer Assistive Device Gait Belt Axillary Crutches Orthotic/Prosthetic Devices or Brace: No Transfers Transfer Destination Chair Toilet Transfer Ability Level of Assist Standby Assistance Contact Guard Assistance Use of Upper Extremities Comments Mobility Comments BP 150/93, HR 128 after activity. Gait Assessment Gait Gait Assistance Required: Contact Guard Assist Distance (Feet) 80 Able to Maintain Weight Bearing Status No During Gait Assistive Devices Assistive Device Gait Belt Axillary Crutches Orthotic/Prosthetic Devices or Brace: No Gait Deviations General Gait Pattern Decreased Stride Length Decreased Feet Clearance Step-to Gait Factors Limiting Gait Function Factors Limiting Gait Function Decreased Activity Tolerance Decreased Strength Limited Range of Motion Pain Poor Balance Stair Climbing Assessment Evaluation Level of Assist On Stairs Contact Guard Assistance Devices Stair Climbing Assistive Devices Axillary Crutches Technique/Endurance Stair Climbing Direction Ascend and Descend Stair Climbing Technique Step to Step Number of Steps Climbed 3 Stair Climbing Set # Repetitions (reps) 2 M5 PT-IP Objective Assessments Start: 03/11/19 12:44 Freq: NEEDED Status: Active Protocol: Document 03/11/19 10:13 AB (Rec: 03/11/19 12:58 AB [id number]) Orientation Orientation/Cognition Level of Alertness Alert Safety Awareness Understands Safety Issues Memory Description No Deficits Noted Gross Range of Motion Lower Extremity ROM Assessment Right Impaired Impairments RLE tightness and pain inhibiting movement Strength Lower Extremity Strength Assessment Right Impaired Hip 2+/5 Knee 3-/5 Coordination Assessment Gross Coordination Gross Coordination WNL Sensation Assessment Sensation Gross Sensation WNL Muscle Tone Muscle Tone WNL Yes M6 PT-IP Treatment Start: 03/11/19 12:44 Freq: NEEDED Status: Active Protocol: Document 03/18/19 11:45 GGD (Rec: 03/18/19 12:28 GGD [email or web address]) Physical Therapy Treatment Education Education Provided Weight Bearing Status Safety M7 PT-IP Assessment and Plan Start: 03/11/19 12:44 Freq: NEEDED Status: Active Protocol: Document 03/18/19 11:45 GGD (Rec: 03/18/19 12:28 GGD [email or web address]) PT Summary Assessment and Plan Summary Assessment Summary PT improving with mobility. He improving with right LE mobility. He was safe and stable with stair mobility. HE did need min cues with gait. Frequency of Treatment Frequency Of Treatment Twice a Day Recommendations To Nursing Amount of Assist Needed 1 Person Assist Discharge Recommendations PT Discharge Recommendations Home with 19/04 Assist Home Health
--- NOTE | 2019-03-18 12:22 | OT.IP.TRT ---
Current Diagnoses Acute posthemorrhagic anemia (03/09/19) Displaced intertrochanteric fracture of right femur, initial encounter for closed fracture (03/09/19) Surgery Performed Operation Date: 03/10/19 17:30 Actual Procedures p Intramedullary Nailing Femur(Right) - Robert Arrington MD Occupational Therapy Treatment Note M2 OT-IP Current Condition Start: 03/11/19 14:34 Freq: Status: Active Protocol: Document 03/11/19 14:34 CGR (Rec: 03/11/19 15:11 CGR [email or web address]) Occupational Therapy Current Condition Current Condition Evaluation Date 03/11/19 Treatment Diagnosis R femur fracture Diagnosis Onset Date 03/10/19 Weight Bearing Status Allowed Weight Bearing Amount (enter % Toe touch weight bearing or #) (%) M3 OT- IP Subjective and Pain Start: 03/11/19 14:34 Freq: Status: Active Protocol: Document 03/18/19 12:14 CGR (Rec: 03/18/19 12:22 CGR [email or web address]) OT- Subjective Occupational Therapy Visit Type Type Treatment Note Visit Start Time 11:25 Visit Stop Time 11:40 Total Visit Minutes 15 Notes co-treat with P.T. for mobility with crutches. Occupational Therapy Visit Comments Patient Comments My leg is still so swollen. OT Pain Assessment Pain When Pain Assessed At Rest Pain Present Pain Present Pain Reported Location Right Thigh Scale Used Pt states not bad M4 OT- IP ADL's Start: 03/11/19 14:34 Freq: Status: Active Protocol: Document 03/18/19 12:14 CGR (Rec: 03/18/19 12:22 CGR [email or web address]) OT ADL-Grooming General Evaluation Grooming Ability Standby Assistance Areas Needing Assistance Retrieving/Set-up of Grooming Items Face Washing Comments OT Grooming Comments Standing at sink with crutches OT ADL-Oral Care General Eval Oral Care Ability Independent Areas of Assistance Brushing Teeth Comments Oral Care Comments Standing at sink with crutches OT ADL-Toileting General Evaluation Toileting Ability Standby Assistance Comments OT Toileting Comments Pt requests to get to toilet for BM at end of session. Pt ambulates back to toilet and performs clothing management without assist once OT has exited the room per pt request . Pt instructed to call for nurse using pull cord when done. Nursing notified. M5 OT- IP IADL's Start: 03/11/19 14:34 Freq: Status: Active Protocol: Document 03/11/19 14:34 CGR (Rec: 03/11/19 15:11 CGR [email or web address]) OT-Instrumental Activities of Daily Living Deficits IADL Deficits Identified No Deficits Home Safety Awareness Awareness of Need for Assistance at Home Good Awareness Ability to Problem Solve Emergency Able to Problem Solve Situations Medication Management Medication Management No Deficits Identified Money Management Money Management No Deficits Identified M6 OT- IP Functional Cognition Start: 03/11/19 14:34 Freq: Status: Active Protocol: Document 03/17/19 15:34 CCC (Rec: 03/17/19 16:09 CCC [email or web address]) Cognitive Factors Limiting Selfcare Function Cognitive Ability Level of Alertness Alert Patient Orientation Name Age Birthday Month Date Year Day of Week Place Situation Attention Span Ability Capable of Focused Attention Capable of Sustained Attention Ability to Follow Commands Able to Follow Multi-Step Commands Memory Description No Deficits Noted Safety Awareness No Deficits Noted Problem Solving Ability No deficits Noted Executive Function Ability No Deficits Noted Abstract Thinking Ability No Deficits Noted Cognitive Comments Cognitive Assessment Comments Pt at baseline level. M7 OT- IP Mobility and Balance Start: 03/11/19 14:34 Freq: Status: Active Protocol: Document 03/18/19 12:14 CGR (Rec: 03/18/19 12:22 CGR [email or web address]) OT-Transfer Assessment Transfers Transfer Ability Contact Guard Assistance Technique Transfer Destination Chair Toilet Devices Transfer Assistive Devices Gait Belt Axillary Crutches Comments Mobility Comments Pt performed without physical assist. Is able to maintain his TTWB with mobility and with stairs. Stairs training performed on this date with a 2 person assist. OT- Gait Assessment Gait Gait Assistance Required: Standby Assistance Able to Maintain Weight Bearing Status Yes During Gait Assistive Devices Assistive Device Gait Belt Forearm Crutches Comments Gait Ability Comments See P.T. note for more detailed information. M8 OT- IP Objective Assessments Start: 03/11/19 14:34 Freq: Status: Active Protocol: Document 03/11/19 14:34 CGR (Rec: 03/11/19 15:11 CGR [email or web address]) OT Gross Range of Motion Upper Extremity Range of Motion Assessment Within Functional Limits OT Strength Upper Extremity Strength Assessment Within Functional Limits Comments Strength Comments 5/5 throughout OT- Coordination Assessment Upper Extremity Finger to Nose Test Within Functional Limits Finger Tapping Test Within Functional Limits OT-Muscle Tone Assessment Muscle Tone WNL Yes OT Sensation Assessment Comments Summary Comments Pt states typical sensation to BUE Edema Edema Present Edema Comments significant edema noted to the RLE M9 OT- IP Assessment and Plan Start: 03/11/19 14:34 Freq: Status: Active Protocol: Document 03/18/19 12:14 CGR (Rec: 03/18/19 12:22 CGR [email or web address]) OT Summary Assessment and Plan Potential Rehabilitation Potential Excellent Analytic Complexity at Evaluation Moderate Summary OT Impairments Pain Range of Motion Functional Mobility Dressing Bathing Progress Towards Goals Progressing Toward Goals Assessment Summary Pt progressing with activity on this date. Able to perform stairs for getting into the house upon discharge. Planned for discharge home with family support today. Pt able to perform self care transfers safely with use of crutches. Discussed need for shower bench for home use. Goals Dressing Goal Independent Archaeology Professor Sock Aid Patient/Caregiver Education Goal Demonstrate Post-Op Precautions Caregiver Independent Assisting Patient Days to Meet Goals 1 Frequency of Treatment Frequency Of Treatment Once a Day Treatment Plan OT Treatment Plan ADL Training Functional Mobility Therapeutic Exercises Patient/Family Education Discharge Planning Other Treatment Recommendations and Next caregiver training, double Treatment Focus check if all eqipment obtained Discharge Recommendations OT Discharge Recommendations Home with Assistance Home Health Home Equipment Needs If pt going home will need caregiver training, tub bench, BSC/rts with handles, Hip kit , FWW , wc for longer distances
--- NOTE | 2019-03-18 14:37 | PC.NURSE ---
Discharge: IV dc'd intact. Dressings to RLE changed to new Coversite dressings (tried Aquacel but it did not work to cover incisions entirely). Instructed to leave dressings on until follow up, no baths/pools until cleared by MD. Reviewed discharge instructions thoroughly with patient and family. Instructed to call Ortho office Wednesday to schedule follow up appt in approx 1 week. Given info re: his follow up with Dr Sullivan, but they plan to call his office Wednesday in hopes of coordinating a date/time when Dr Ramos can be involved. Given scripts for Iron, Meloxicam and Oxycodone. Reviewed med list and instructed to buy Tylenol, 81 mg Aspirin, Vitamin C and stool softeners OTC. Instructed to take Aspirin BID until told to stop by ortho (taking in place of Lovenox- see HCP communication for details), and to take stool softeners as long as he takes Oxycodone. Instructed to call MD/or 911 with s/sx infection, dizziness/lightheadedness, syncope or deterioration in sensation/circulation of RLE. Patient and family verbalized understanding of d/c instructions and stated no further questions. All personal belongings collected and sent with patient. Taken out to private vehicle via wheelchair.
--- NOTE | 2019-03-18 15:13 | CM.DPNOTE ---
DC Note: Pt's H+H has dropped again this morning. Ortho JOEY Aldana reviewed lab results w/pt this morning and pt continues to want to DC home, he is not concerned about his lab values and does not want blood. Pt able to mobilize a little more w/ therapy team yesterday afternoon and today, less symptomatic. Placed call to pt's father Rj to review DCP; Rj is agreeable to taking pt home today w/ [facility] to assist. This OPERATING MANAGER encouraged Rj to call Dr Sullivan's office Wednesday to ask about arranging a PCP/BHIP appt for Wednesday and Rj agreeable to this. Spoke w/ pt before DC, encouraged him to consider seeking outpt support to meet his previously stated goals to this OPERATING MANAGER of emancipating himself from his family. Pt says Oh I'm not worried about my future, I just need to make sure this (injury) doesn't happen again. Faxed HH order, completed F2F and DC Summary to [facility] , placed call to Marilyn at [facility] to alert her that pt was going home today. P: DC home w/family, [facility] RN/PT/OT and outpt referral for PCP/BHIP and Ortho f/u, via pov. No walker needed. Layne White OPERATING MANAGER
== END 2019-03-18 14:54 | disposition home health service (06) | DRG 308 ==
LOC: ED 23:55 → AC 23:57
PROVIDERS: Orthopaedic Surgery; Physician Assistant; Physician Assistant Medical; Admitting Provider Orthopaedic Surgery; Emergency Provider Emergency Medicine; Family Provider Family Medicine; PCP Family Medicine; Visit Provider Orthopaedic Surgery
PROC: (CPT 27245; principal; 2019-03-10 17:30)
DX: S72.141A Displaced intertrochanteric fracture of right femur, initial encounter for closed fracture (principal); S72.301A Unspecified fracture of shaft of right femur, initial encounter for closed fracture; M62.451 Contracture of muscle, right thigh; F39 Unspecified mood [affective] disorder; D62 Acute posthemorrhagic anemia; V00.131A Fall from skateboard, initial encounter
CPT/HCPCS: 36415; 36591; 72192; 73503; 73552; 76000; 80048; 85014; 85018; 85025; 85027; 86850; 86900; 86901; 90792; 90833; 94762; 97110; 97116; 97162; 97166; 97530; 97535; 99232; 99283; 99284; 99406; J0690; J1100; J1170; J1650; J2405; J2704; J3010